=== PATIENT | female | born 1985 | race Caucasian/White ===

== ENCOUNTER 2019-05-30 20:02 | Emergency (ER) | payer OTHER ==
[2019-05-30] MEDS ORDERED: AZITHROMYCIN 250 MG TAB ONE (20:27)
[2019-05-30] MEDS ORDERED: DIPHENHYDRAMINE 25 MG TAB/CAP ONE (20:27)
[2019-05-30] MEDS ORDERED: LEVALBUTEROL 1.25 MG/3 ML NEB ONE (20:28)
[2019-05-30] MEDS ORDERED: predniSONE 20 MG TAB ONE (20:28)
[2019-05-30] MEDS ORDERED: IPRATROPIUM BROM 0.5MG/2.5ML ONE (20:28)
[2019-05-30] MEDS ORDERED: FAMOTIDINE 20 MG TAB ONE (20:29)
--- NOTE | 2019-05-30 20:55 | EDPHYS ---
Physician Documentation [facility] Name: Sarita Tracy Age: 34 yrs Sex: Female : 1985 Arrival Date: 05/30/2019 Time: 20:06 Bed 5 Private MD: Feliberto Encarnacion E ED Physician Abel May HPI: 05/30 20:17 This 34 yrs old Female presents to ER via Ambulatory with complaints of sabine Allergic Reaction, Chest Congestion. 20:17 The patient presents with chest pain, runny nose, shortness of breath. Onset: The sabine symptoms/episode began/occurred just prior to arrival. Associated signs and symptoms: Pertinent positives: shortness of breath. Possible causes: allergy shots. At home the patient or guardian has treated the symptoms with nothing. Severity of symptoms: At their worst the symptoms were mild in the emergency department the symptoms are unchanged. The patient has not experienced similar symptoms in the past. 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 - Social history:: Smoking status: Patient/guardian denies using tobacco. - Ebola Screening: : No symptoms or risks identified at this time. - Family history:: not pertinent. ROS: 20:17 Constitutional: Negative for fever, chills, and weight loss, Eyes: Negative for injury, sabine pain, redness, and discharge, ENT: Negative for injury, pain, and discharge, Neck: Negative for injury, pain, and swelling, Cardiovascular: Negative for chest pain, palpitations, and edema, Abdomen/GI: Negative for abdominal pain, nausea, vomiting, diarrhea, and constipation, Back: Negative for injury and pain, : Negative for injury, bleeding, discharge, and swelling, MS/Extremity: Negative for injury and deformity, Skin: Negative for injury, rash, and discoloration, Neuro: Negative for headache, weakness, numbness, tingling, and seizure, Psych: Negative for depression, anxiety, suicide ideation, homicidal ideation, and hallucinations, Allergy/Immunology: Negative for hives, rash, and allergies, Endocrine: Negative for neck swelling, polydipsia, polyuria, polyphagia, and marked weight changes, Hematologic/Lymphatic: Negative for swollen nodes, abnormal bleeding, and unusual bruising. 20:17 Respiratory: Positive for cough, shortness of breath. Exam: 20:17 Constitutional: This is a well developed, well nourished patient who is awake, alert, sabine and in no acute distress. Head/Face: Normocephalic, atraumatic. Eyes: Pupils equal round and reactive to light, extra-ocular motions intact. Lids and lashes normal. Conjunctiva and sclera are non-icteric and not injected. Cornea within normal limits. Periorbital areas with no swelling, redness, or edema. ENT: Nares patent. No nasal discharge, no septal abnormalities noted. Tympanic membranes are normal and external auditory canals are clear. Oropharynx with no redness, swelling, or masses, exudates, or evidence of obstruction, uvula midline. Mucous membranes moist. Neck: Trachea midline, no thyromegaly or masses palpated, and no cervical lymphadenopathy. Supple, full range of motion without nuchal rigidity, or vertebral point tenderness. No Meningismus. Chest/axilla: Normal chest wall appearance and motion. Nontender with no deformity. No lesions are appreciated. Cardiovascular: Regular rate and rhythm with a normal S1 and S2. No gallops, murmurs, or rubs. Normal PMI, no JVD. No pulse deficits. Respiratory: Lungs have equal breath sounds bilaterally, clear to auscultation and percussion. No rales, rhonchi or wheezes noted. No increased work of breathing, no retractions or nasal flaring. Abdomen/GI: Soft, non-tender, with normal bowel sounds. No distension or tympany. No guarding or rebound. No evidence of tenderness throughout. Back: No spinal tenderness. No costovertebral tenderness. Full range of motion. Skin: Warm, dry with normal turgor. Normal color with no rashes, no lesions, and no evidence of cellulitis. MS/ Extremity: Pulses equal, no cyanosis. Neurovascular intact. Full, normal range of motion. Neuro: Awake and alert, GCS 15, oriented to person, place, time, and situation. Cranial nerves II-XII grossly intact. Motor strength 5/5 in all extremities. Sensory grossly intact. Cerebellar exam normal. Normal gait. Psych: Awake, alert, with orientation to person, place and time. Behavior, mood, and affect are within normal limits. 20:17 Musculoskeletal/extremity: DVT Exam: No signs of deep vein thrombosis. no pain, no swelling, no tenderness, negative Homans' sign noted on exam, no appreciated bluish discoloration, no erythema, no increased warmth. Vital Signs: 20:19 BP 140 / 74; Pulse 80; Resp 20; Temp 98.1; Pulse Ox 97% on R/A; Weight 58.97 kg; Height ea 5 ft. (152.40 cm); 21:17 BP 139 / 78; Pulse 100; Resp 16; Pulse Ox 100% on R/A; jb4 20:19 Body Mass Index 25.39 (58.97 kg, 152.40 cm) ea MDM: 20:07 Patient medically screened. [facility] 05/30 21:14 Order name: Urine Dipstick--Ancillary (enter results) [facility] 05/30 21:14 Order name: Urine --Ancillary (enter results) [facility] 05/30 20:15 Order name: Chest Single View XRAY [facility] 05/30 20:15 Order name: Urine Dipstick-Ancillary (obtain specimen); Complete Time: 21:17 [facility] 05/30 20:15 Order name: Urine Test (obtain specimen); Complete Time: 21:17 [facility] Administered Medications: 20:15 CANCELLED (Duplicate Order): predniSONE 40 mg PO once [facility] 20:24 CANCELLED (Duplicate Order): Benadryl 25 mg IVP once [facility] 20:24 CANCELLED (Duplicate Order): Pepcid 20 mg IVP once [facility] 20:32 Drug: AtroVENT Aerosol 0.5 mg Route: Inhalation; jb4 21:17 Follow up: Response: No adverse reaction jb4 20:32 Drug: Zithromax 500 mg Route: PO; jb4 21:17 Follow up: Response: No adverse reaction jb4 20:32 Drug: predniSONE 60 mg Route: PO; jb4 21:16 Follow up: Response: No adverse reaction jb4 20:32 Drug: Pepcid 40 mg Route: PO; jb4 21:16 Follow up: Response: No adverse reaction jb4 20:32 Drug: Benadryl 50 mg Route: PO; jb4 21:16 Follow up: Response: No adverse reaction jb4 20:33 Drug: Xopenex 1.25 mg Route: Inhalation; jb4 21:17 Follow up: Response: No adverse reaction jb4 Disposition: 05/30/19 20:54 Discharged to Home. Impression: Allergy, unspecified, Bronchitis, not specified as acute or chronic. - Condition is Stable. - Discharge Instructions: Acute Bronchitis, Adult, Allergies, Adult, How to Use an Inhaler, Upper Respiratory Infection, Adult, Allergies, [id number]. - Prescriptions for Benadryl 25 mg Oral Capsule - take 1 capsule by ORAL route every 6 hours As needed; 30 tablet. Pepcid 20 mg Oral Tablet - take 1 tablet by ORAL route every 12 hours for 10 days; 20 tablet. Zithromax Z- Fortino 250 mg Oral Tablet - take 1 tablet by ORAL route as directed for 5 days Day 1 - take two (2) tablets one time. Day 2, 3, 4 , 5 take one (1) tablet once daily.; 6 tablet. Medrol (Fortino) 4 mg Oral Tablets, Dose Pack - take 1 tablet by ORAL route as directed - follow package instructions; 1 packet. Albuterol Sulfate 90 mcg/actuation - inhale 1-2 puff by INHALATION route every 4-6 hours; 1 Inhaler. EpiPen 0.3 mg Injection auto- injector - inject 1 pen by INTRAMUSCULAR route as directed Inject into the outer portion of the thigh, through clothing if necessary. Indicated in the emergency treatment of allergic reactions; 1 box. - Medication Reconciliation Form, Thank You Letter, Antibiotic Education, Prescription Opioid Use form. - Follow up: Feliberto Encarnacion; When: 1 - 2 days; Reason: Recheck today's complaints, Continuance of care, Re-evaluation by your physician. - Problem is new. - Symptoms have improved. Signatures: Dispatcher [employer] Abel Barone MD MD cha Bryson, James, RN RN jb4 Maryann Trujillo RN RN ben Corrections: (The following items were deleted from the chart) 20:15 20:15 predniSONE 40 mg PO once ordered. sabine sabine 20:24 20:17 Benadryl 25 mg IVP once ordered. sabine regalado 20:24 20:17 Pepcid 20 mg IVP once ordered. [facility] 21:19 20:54 05/30/2019 20:54 Discharged to Home. Impression: Allergy, unspecified; jb4 Bronchitis, not specified as acute or chronic. Condition is Stable. Discharge Instructions: Acute Bronchitis, Adult, Allergies, Adult, How to Use an Inhaler, Upper Respiratory Infection, Adult, Allergies, [id number]. Prescriptions for Benadryl 25 mg Oral Capsule - take 1 capsule by ORAL route every 6 hours As needed; 30 tablet, Pepcid 20 mg Oral Tablet - take 1 tablet by ORAL route every 12 hours for 10 days; 20 tablet, Zithromax Z-Fortino 250 mg Oral Tablet - take 1 tablet by ORAL route as directed for 5 days Day 1 - take two (2) tablets one time. Day 2, 3, 4 , 5 take one (1) tablet once daily.; 6 tablet, Medrol (Fortino) 4 mg Oral Tablets, Dose Pack - take 1 tablet by ORAL route as directed - follow package instructions; 1 packet, Albuterol Sulfate 90 mcg/actuation - inhale 1-2 puff by INHALATION route every 4-6 hours; 1 Inhaler, EpiPen 0.3 mg Injection auto-injector - inject 1 pen by INTRAMUSCULAR route as directed Inject into the outer portion of the thigh, through clothing if necessary. Indicated in the emergency treatment of allergic reactions; 1 box. and Forms are Medication Reconciliation Form, Thank You Letter, Antibiotic Education, Prescription Opioid Use. Follow up: Feliberto Encarnacion; When: 1 - 2 days; Reason: Recheck today's complaints, Continuance of care, Re-evaluation by your physician. Problem is new. Symptoms have improved. [facility]
--- NOTE | 2019-05-30 20:55 | ER ---
Nurse's Notes [facility] Name: Sarita Tracy Age: 34 yrs Sex: Female : 1985 Arrival Date: 05/30/2019 Time: 20:06 Bed 5 Private MD: Feliberto Encarnacion E Diagnosis: Allergy, unspecified;Bronchitis, not specified as acute or chronic Presentation: 05/30 20:14 Presenting complaint: Patient states: Reports she had allergy shots today, states " ea started feeling congestion and shortness of breath that started about two hours ago". Transition of care: patient was not received from another setting of care. Onset: The symptoms/episode began/occurred gradually. Anaphylaxis evaluation, no signs or symptoms of anaphylaxis were noted. Onset of symptoms was May 30, 2019. Risk Assessment: Do you want to hurt yourself or someone else? Patient reports no desire to harm self or others. Initial Sepsis Screen: Does the patient meet any 2 criteria? No. Patient's initial sepsis screen is negative. Does the patient have a suspected source of infection? No. Patient's initial sepsis screen is negative. Care prior to arrival: None. 20:14 Method Of Arrival: Ambulatory ea 20:14 Acuity: ROSA 3 ea Triage Assessment: 20:19 General: Appears in no apparent distress. Behavior is calm, cooperative, appropriate ea for age. Pain: Denies pain. Neuro: Level of Consciousness is awake, alert, obeys commands, Oriented to person, place, time, situation. Respiratory: Airway is patent Respiratory effort is even, unlabored, Respiratory pattern is regular, symmetrical. 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 - Social history:: Smoking status: Patient/guardian denies using tobacco. - Ebola Screening: : No symptoms or risks identified at this time. - Family history:: not pertinent. Screenin:16 Abuse screen: Denies threats or abuse. Nutritional screening: No deficits noted. ea Tuberculosis screening: No symptoms or risk factors identified. Fall Risk None identified. Assessment: 20:17 General: Appears in no apparent distress. uncomfortable, Behavior is calm, cooperative, jb4 appropriate for age. Pain: Complains of pain in chest Pain does not radiate. Pain currently is 5 out of 10 on a pain scale. Quality of pain is described as Its heavy and hurts to cough. Neuro: Level of Consciousness is awake, alert, obeys commands, Oriented to person, place, time, situation. Cardiovascular: Patient's skin is warm and dry. Respiratory: Reports shortness of breath cough that is pain with cough Airway is patent Respiratory effort is even, labored, Respiratory pattern is regular, symmetrical, Breath sounds are clear bilaterally. GI: No deficits noted. No signs and/or symptoms were reported involving the gastrointestinal system. : No deficits noted. No signs and/or symptoms were reported regarding the genitourinary system. EENT: No deficits noted. No signs and/or symptoms were reported regarding the EENT system. Derm: Skin is intact, Skin is pink, warm \\T\\ dry. Musculoskeletal: Circulation, motion, and sensation intact. Range of motion: intact in all extremities. 21:17 Reassessment: Patient appears in no apparent distress at this time. Patient and/or jb4 family updated on plan of care and expected duration. Pain level reassessed. Patient is alert, oriented x 3, equal unlabored respirations, skin warm/dry/pink. Pt verbalized understanding of d/c and follow up instructions. Left ED ambulatory with steady gait, with family. Patient states feeling better. Patient states symptoms have improved. Respiratory: Airway is patent Respiratory effort is even, unlabored, Respiratory pattern is regular, symmetrical, Breath sounds are clear bilaterally. Vital Signs: 20:19 BP 140 / 74; Pulse 80; Resp 20; Temp 98.1; Pulse Ox 97% on R/A; Weight 58.97 kg; Height ea 5 ft. (152.40 cm); 21:17 BP 139 / 78; Pulse 100; Resp 16; Pulse Ox 100% on R/A; jb4 20:19 Body Mass Index 25.39 (58.97 kg, 152.40 cm) ED Course: 20:06 Patient arrived in ED. es 20:07 Feliberto Encarnacion MD is Private Physician. 20:07 Abel May MD is Attending Physician. [facility] 20:09 Yariel Baez, RN is Primary Nurse. jb4 20:16 Triage completed. ea 20:16 Arm band placed on right wrist. Patient placed in an exam room, on a stretcher, on ea pulse oximetry. 20:16 Patient has correct armband on for positive identification. Bed in low position. Call ea light in reach. Side rails up X2. 20:54 Feliberto Encarnacion MD is Referral Physician. [facility] 21:00 Chest Single View XRAY In Process Unspecified. EDRI 21:17 No provider procedures requiring assistance completed. Patient did not have IV access jb4 during this emergency room visit. Administered Medications: 20:15 CANCELLED (Duplicate Order): predniSONE 40 mg PO once sabine 20:24 CANCELLED (Duplicate Order): Benadryl 25 mg IVP once sabine 20:24 CANCELLED (Duplicate Order): Pepcid 20 mg IVP once sabine 20:32 Drug: AtroVENT Aerosol 0.5 mg Route: Inhalation; jb4 21:17 Follow up: Response: No adverse reaction jb4 20:32 Drug: Zithromax 500 mg Route: PO; jb4 21:17 Follow up: Response: No adverse reaction jb4 20:32 Drug: predniSONE 60 mg Route: PO; jb4 21:16 Follow up: Response: No adverse reaction jb4 20:32 Drug: Pepcid 40 mg Route: PO; jb4 21:16 Follow up: Response: No adverse reaction jb4 20:32 Drug: Benadryl 50 mg Route: PO; jb4 21:16 Follow up: Response: No adverse reaction jb4 20:33 Drug: Xopenex 1.25 mg Route: Inhalation; jb4 21:17 Follow up: Response: No adverse reaction jb4 Outcome: 20:54 Discharge ordered by . sabine 21:17 Discharged to home ambulatory, with family. jb4 21:17 Condition: stable 21:17 Discharge instructions given to patient, family, Instructed on discharge instructions, follow up and referral plans. medication usage, Demonstrated understanding of instructions, follow-up care, medications, Prescriptions given X 6 21:19 Patient left the ED. jb4 Signatures: Dispatcher [employer] EDRI Abel May MD MD cha Salyer, Edna es Bryson, James, RN RN jb4 Maryann Trujillo, RN RN ea
[2019-05-30 21:19] LABS: Urine Blood NEGATIVE (NEG); Urine Glucose NEGATIVE (NEG); Urine Protein NEGATIVE (NEG); Urine Specific Gravity >1.030 (1.005-1.030)
--- NOTE | 2019-05-31 08:13 | RAD REPORT ---
EXAM DESCRIPTION: Mariano Single View05/30/2019 8:58 pm CLINICAL HISTORY: Cough COMPARISON: 2017 FINDINGS: The patient is in a poor degree of inspiration The lungs appear clear of acute infiltrate. The heart is normal size IMPRESSION: No acute abnormalities displayed
== END 2019-05-30 21:19 | disposition home or self-care (01) ==
LOC: ER 20:02
DX: T78.40XA Allergy, unspecified, initial encounter (principal); J40 Bronchitis, not specified as acute or chronic; R07.9 Chest pain, unspecified; I10 Essential (primary) hypertension; F32.9 Major depressive disorder, single episode, unspecified; F41.9 Anxiety disorder, unspecified; G80.9 Cerebral palsy, unspecified
CPT/HCPCS: 71045; 81003; 81025; 99284; J7512

== ENCOUNTER 2019-12-31 12:29 | Emergency (ER) | payer OTHER ==
--- NOTE | 2019-12-31 15:19 | RAD REPORT ---
EXAM DESCRIPTION: CT - [id number] - 12/31/2019 2:43 pm CLINICAL HISTORY: fall, head injury COMPARISON: No comparisons TECHNIQUE: Axial 5 mm thick images of the head were obtained. Axial 2 mm thick images of the cervic al spine were obtained with sagittal and coronal reconstruction images generated and reviewed. All CT scans are performed using dose optimization technique as appropriate and may include automated exposure control or mA/KV adjustment according to patient size. FINDINGS: No intracranial hemorrhage, mass, edema or acute intracranial finding. No cortical edema o r sulcal effacement. Ventricles are normal. No extra-axial fluid collections. Mastoid air cells and p aranasal sinuses are clear. No globe or orbit abnormality seen. Cervical body height and alignment are normal. C7-T1 disc space narrowing is present with large poste rior endplate spurring, unusual for age. Canal is borderline stenotic at this level. Patient has C6-7 uncovertebral joint hypertrophy causing mild bilateral bony foraminal encroachment. No fracture or a cute bony abnormality. Central canal detail is inherently limited. No paraspinal mass or hematoma. IMPRESSION: Negative CT head examination for acute or significant finding. No fracture or acute cervical spine finding. Patient has prominent for age posterior endplate spurrin g at C7-T1 causing borderline spinal stenosis along with bony foraminal encroachment at C6-7. Central canal detail is inherently limited.
[2019-12-31] MEDS ORDERED: ACETAMINOPHEN 325 MG TABLET ONE (15:41)
[2019-12-31] MEDS ORDERED: ONDANSETRON 4 MG (ODT) TAB ONE (15:42)
--- NOTE | 2019-12-31 16:02 | EDPHYS ---
Physician Documentation [facility] Name: Sarita Tracy Age: 34 yrs Sex: Female : 1985 Arrival Date: 12/31/2019 Time: 12:32 Bed 17 Private MD: Chencho Figueroa ED Physician Abel May HPI: 12/30 14:12 This 34 yrs old Female presents to ER via Ambulatory with complaints of Fall jmm Injury, Head pain. 14:12 Details of fall: The patient fell from an upright position. Onset: The symptoms/episode jmm began/occurred acutely, last night. Associated injuries: The patient sustained injury to the head. This is a 34 year old female with a history of Cerebral Palsy that presents to the ED with complaints of headache, nausea beginning after a fall which occurred last night. Patient states she slipped and fell last night due to underlying CP. Patient states she saw stars after the injury. Denies LOC. 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 - Social history:: Smoking status: Patient denies any tobacco usage or history of. ROS: 14:12 Constitutional: Negative for fever, chills, and weight loss, Cardiovascular: Negative jmm for chest pain, palpitations, and edema, Respiratory: Negative for shortness of breath, cough, wheezing, and pleuritic chest pain. 14:12 Abdomen/GI: Positive for nausea. 14:12 Neuro: Positive for headache. 14:12 All other systems are negative. Exam: 14:12 Constitutional: This is a well developed, well nourished patient who is awake, alert, jmm and in no acute distress. 14:12 Eyes: EOMI, no conjunctival erythema appreciated ENT: Moist Mucus Membranes Neck: Trachea midline, Supple Chest/axilla: Normal chest wall appearance and motion. Cardiovascular: Regular rate and rhythm. No edema appreciated Respiratory: Normal respirations, no respiratory distress appreciated Abdomen/GI: Non distended, soft Back: Normal ROM Skin: General appearance color normal MS/ Extremity: Moves all extremities, no obvious deformities appreciated, no edema noted to the lower extremities Neuro: Awake and alert, normal gait Psych: Behavior is normal, Mood is normal, Patient is cooperative and pleasant 14:12 Head/face: Noted is tenderness, that is moderate, of the left side of the back of head. Vital Signs: 13:17 BP 133 / 84; Pulse 79; Resp 18; Temp 97.6; Pulse Ox 100% on R/A; Weight 61.69 kg; dm5 Height 5 ft. 0 in. (152.40 cm); Pain 4/10; 14:00 BP 113 / 74; Pulse 62; Resp 17; Pulse Ox 100% on R/A; vc 14:30 BP 117 / 64; Pulse 68; Resp 18; Pulse Ox 100% on R/A; vc 15:01 BP 104 / 66; Pulse 59; Resp 17; Temp 97.5(TE); Pulse Ox 100% on R/A; mh5 13:17 Body Mass Index 26.56 (61.69 kg, 152.40 cm) dm5 MDM: 13:46 Patient medically screened. sabine 15:55 Data reviewed: vital signs, nurses notes. Counseling: I had a detailed discussion with tiana the patient and/or guardian regarding: the historical points, exam findings, and any diagnostic results supporting the discharge/admit diagnosis, radiology results, the need for outpatient follow up, to return to the emergency department if symptoms worsen or persist or if there are any questions or concerns that arise at home. ED course: CT imaging negative. Patient given head injury return precautions. . 12/30 14:12 Order name: CT Head C Spine; Complete Time: 15:[address] [facility] Administered Medications: 15:45 Drug: Tylenol 650 mg Route: PO; vc 16:24 Follow up: Response: No adverse reaction vc 15:45 Drug: Zofran (Ondansetron) 4 mg Route: PO; vc 16:23 Follow up: Response: No adverse reaction vc Disposition: 12/31/19 16:00 Discharged to Home. Impression: Superficial injury of head. - Condition is Stable. - Discharge Instructions: Head Injury, Adult. - Prescriptions for Ibuprofen 600 mg Oral Tablet - take 1 tablet by ORAL route every 8-12 hours As needed take with food; 30 tablet. Zofran 4 mg Oral Tablet - take 1 tablet by ORAL route every 12 hours As needed; 14 tablet. - Medication Reconciliation Form, Thank You Letter, Antibiotic Education, Prescription Opioid Use form. - Follow up: Private Physician; When: 2 - 3 days; Reason: Recheck today's complaints, Continuance of care, Re-evaluation by your physician. Addendum: 01/02/2020 09:07 Co-signature as Attending Physician, Abel May MD I agree with the assessment and c cheatham plan of care. Signatures: Dispatcher [employer] EDMS Abel May MD MD cha Mickail, Joel, PA PA jmm Calcote, Vanessa RN RN vc Corrections: (The following items were deleted from the chart) 12/30 16:25 16:00 12/31/2019 16:00 Discharged to Home. Impression: Superficial injury of head. vc Condition is Stable. Forms are Medication Reconciliation Form, Thank You Letter, Antibiotic Education, Prescription Opioid Use. Follow up: Private Physician; When: 2 - 3 days; Reason: Recheck today's complaints, Continuance of care, Re-evaluation by your physician. tiana
--- NOTE | 2019-12-31 16:02 | ER ---
Nurse's Notes [facility] Name: Sarita Tracy Age: 34 yrs Sex: Female : 1985 Arrival Date: 12/31/2019 Time: 12:32 Bed 17 Private MD: Chencho Figueroa Diagnosis: Superficial injury of head Presentation: 12/30 13:17 Chief complaint: Patient states: slipped in laundry room last night and hit back of dm5 head on wall, saw stars, has headache now rated at 4/10, pt reports nausea. Coronavirus screen: The patient has NOT traveled to a country currently being monitored by the [facility] within the last 14 days. Proceed with normal triage procedures. The patient has NOT had contact with any known and/or suspected case of coronavirus. Proceed with normal triage procedures. Ebola Screen: Patient negative for fever greater than or equal to 101.5 degrees Fahrenheit, and additional compatible Ebola Virus Disease symptoms Patient denies exposure to infectious person. Patient denies travel to an Ebola-affected area in the 21 days before illness onset. No symptoms or risks identified at this time. Initial Sepsis Screen: Does the patient meet any 2 criteria? No. Patient's initial sepsis screen is negative. Does the patient have a suspected source of infection? No. Patient's initial sepsis screen is negative. Risk Assessment: Do you want to hurt yourself or someone else? Patient reports no desire to harm self or others. 13:17 Method Of Arrival: Ambulatory 5 13:17 Acuity: ROSA 4 dm5 14:52 Onset of symptoms was December 30, 2019 at 21:00. vc Triage Assessment: 13:45 General: Appears in no apparent distress. comfortable, Behavior is calm, cooperative, vc appropriate for age. Pain: Complains of pain in left side of the back of head. 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 - Social history:: Smoking status: Patient denies any tobacco usage or history of. Screenin:23 Abuse screen: Denies threats or abuse. Nutritional screening: No deficits noted. vc Tuberculosis screening: No symptoms or risk factors identified. Fall Risk Fall in past 12 months (25 points). Secondary diagnosis (15 points) CP. No IV (0 pts). Ambulatory Aid- None/Bed Rest/Nurse Assist (0 pts). Gait- Weak (10 pts.). Mental Status- Oriented to own ability (0 pts). Total Coe Fall Scale indicates High Risk Score (45 or more points). Placed Close to Nursing Station Frequent Obs/Assessments Occuring. Primary Survey: 13:50 NO uncontrolled hemorrhage observed. A: The patient needs verbal stimulation to vc respond. Airway: patent. Breathing/Chest: Respiratory pattern: regular, Respiratory effort: spontaneous. Circulation: Pulses: palpable right radial artery and left radial artery. Skin color: pink, Skin temperature: warm. Disability Alert. Exposure/Environment: All clothing and personal items were removed. Forensic evidence collection is not deemed to be indicated at this time. Items placed in patient belonging bag. There is no evidence of uncontrolled external bleeding. Assessment: 14:00 General: Appears in no apparent distress. comfortable, Behavior is calm, cooperative, vc appropriate for age. Pain: Complains of pain in left side of the back of head. Neuro: Level of Consciousness is awake, alert, obeys commands, Oriented to person, place, time, situation. Cardiovascular: Capillary refill < 3 seconds Patient's skin is warm and dry. Respiratory: Airway is patent Respiratory effort is even, unlabored, Respiratory pattern is regular, symmetrical. GI: No signs and/or symptoms were reported involving the gastrointestinal system. : No signs and/or symptoms were reported regarding the genitourinary system. EENT: No signs and/or symptoms were reported regarding the EENT system. Derm: Skin temperature is warm. 14:59 Reassessment: Patient and/or family updated on plan of care and expected duration. Pain vc level reassessed. Patient is alert, oriented x 3, equal unlabored respirations, skin warm/dry/pink. Neuro: Level of Consciousness is awake, alert, obeys commands, Oriented to person, place, time, situation, Appropriate for age. 16:22 Reassessment: Patient and/or family updated on plan of care and expected duration. Pain vc level reassessed. Patient is alert, oriented x 3, equal unlabored respirations, skin warm/dry/pink. Neuro: Level of Consciousness is awake, alert, obeys commands. Vital Signs: 13:17 BP 133 / 84; Pulse 79; Resp 18; Temp 97.6; Pulse Ox 100% on R/A; Weight 61.69 kg; dm5 Height 5 ft. 0 in. (152.40 cm); Pain 4/10; 14:00 BP 113 / 74; Pulse 62; Resp 17; Pulse Ox 100% on R/A; vc 14:30 BP 117 / 64; Pulse 68; Resp 18; Pulse Ox 100% on R/A; vc 15:01 BP 104 / 66; Pulse 59; Resp 17; Temp 97.5(TE); Pulse Ox 100% on R/A; mh5 13:17 Body Mass Index 26.56 (61.69 kg, 152.40 cm) dm5 ED Course: 12:32 Patient arrived in ED. am2 12:32 Chencho Figueroa is Private Physician. am2 12:54 Will Diaz PA is PHCP. jmm 12:55 Abel May MD is Attending Physician. jmm 13:18 Triage completed. dm5 13:45 Arm band placed on. vc 14:00 Patient has correct armband on for positive identification. Call light in reach. vc pvc monitor on. Pulse ox on. 14:10 Abena Renteria, RN is Primary Nurse. vc 14:44 CT Head C Spine In Process Unspecified. EDMS 16:24 No provider procedures requiring assistance completed. Patient did not have IV access vc during this emergency room visit. Administered Medications: 15:45 Drug: Tylenol 650 mg Route: PO; vc 16:24 Follow up: Response: No adverse reaction vc 15:45 Drug: Zofran (Ondansetron) 4 mg Route: PO; vc 16:23 Follow up: Response: No adverse reaction vc Outcome: 16:00 Discharge ordered by . jmm 16:25 Discharged to home ambulatory. vc 16:25 Condition: good 16:25 Discharge instructions given to patient, Instructed on discharge instructions, follow up and referral plans. medication usage, Demonstrated understanding of instructions, follow-up care, medications, Prescriptions given X 2. 16:25 Patient left the ED. vc Signatures: Dispatcher [employer] Amie Hitcchock RN RN dm5 Will Diaz PA PA jmm Martinez, [facility] Sunitha Porter Vanessa, RN RN vc Corrections: (The following items were deleted from the chart) 14:59 13:30 BP 113 / 74; Pulse 62bpm; Resp 17bpm; Pulse Ox 100% RA; vc vc
[2019-12-31 16:43] VITALS: O2SAT 100
[2019-12-31 16:48] VITALS: BP 104/66; TEMP 97.5
== END 2019-12-31 16:25 | disposition home or self-care (01) ==
LOC: ER 12:29
DX: S00.90XA Unspecified superficial injury of unspecified part of head, initial encounter (principal); W01.198A Fall on same level from slipping, tripping and stumbling with subsequent striking against other object, initial encounter; Y93.89 Activity, other specified; Y92.018 Other place in single-family (private) house as the place of occurrence of the external cause; I10 Essential (primary) hypertension; F41.9 Anxiety disorder, unspecified
CPT/HCPCS: 70450; 72125; 99284

== ENCOUNTER 2020-07-27 15:39 | Emergency (ER) | payer OTHER ==
[2020-07-27] MEDS ORDERED: predniSONE 20 MG TAB ONE (17:10)
[2020-07-27] MEDS ORDERED: ALBUTEROL 2.5 MG/3 ML NEB SOL ONE (17:10)
[2020-07-27] MEDS ORDERED: FAMOTIDINE 20 MG TAB ONE (17:11)
--- NOTE | 2020-07-27 17:27 | RAD REPORT ---
EXAM DESCRIPTION: RAD - Chest Single View - 07/27/2020 5:18 pm CLINICAL HISTORY: DYSPNEA COMPARISON: May 2019 TECHNIQUE: AP portable chest image was obtained 07/27/2020 5:18 pm . FINDINGS: Lungs are clear. Heart and vasculature are normal. No measurable pleural effusion and no p neumothorax. No acute bony abnormality seen. No acute aortic findings suspected. IMPRESSION: No acute cardiopulmonary process. No significant change from comparison.
--- NOTE | 2020-07-27 17:35 | EDPHYS ---
Physician Documentation [facility] Name: Sarita Tracy Age: 35 yrs Sex: Female : 1985 Arrival Date: 07/27/2020 Time: 15:42 Bed 4 Private MD: RAFA Physician Abel May HPI: 07/27 17:54 This 35 yrs old Female presents to ER via Ambulatory with complaints of kb Allergic Reaction, Shortness Of Breath. 17:54 The patient presents with runny nose, shortness of breath. Onset: The symptoms/episode kb began/occurred today. Associated signs and symptoms: Pertinent positives: shortness of breath, cough, congestion, rhinorrhea. Possible causes: "allergy shots". Severity of symptoms: At their worst the symptoms were moderate in the emergency department the symptoms are unchanged. The patient has experienced similar episodes in the past. The patient has been recently seen by a physician:. Pt reports she gets 2 allergy shots monthly and after she got them today she had some shortness of breath, cough, congestion, and rhinorrhea. States "July is a bad month for me and this would be a lot worse without the shots.". 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 - Social history:: Smoking status: Patient denies any tobacco usage or history of. ROS: 17:44 Constitutional: Negative for fever, chills, and weight loss, Cardiovascular: Negative kb for chest pain, palpitations, and edema, Abdomen/GI: Negative for abdominal pain, nausea, vomiting, diarrhea, and constipation, Back: Negative for injury and pain, MS/Extremity: Negative for injury and deformity, Skin: Negative for injury, rash, and discoloration, Neuro: Negative for headache, weakness, numbness, tingling, and seizure. 17:44 ENT: Positive for rhinorrhea, sinus congestion, sore throat. 17:44 Respiratory: Positive for cough, shortness of breath. Exam: 17:44 Constitutional: This is a well developed, well nourished patient who is awake, alert, kb and in no acute distress. Head/Face: Normocephalic, atraumatic. Chest/axilla: Normal chest wall appearance and motion. Nontender with no deformity. No lesions are appreciated. Cardiovascular: Regular rate and rhythm with a normal S1 and S2. No gallops, murmurs, or rubs. Normal PMI, no JVD. No pulse deficits. Respiratory: Lungs have equal breath sounds bilaterally, clear to auscultation and percussion. No rales, rhonchi or wheezes noted. No increased work of breathing, no retractions or nasal flaring. Abdomen/GI: Soft, non-tender, with normal bowel sounds. No distension or tympany. No guarding or rebound. No evidence of tenderness throughout. Back: No spinal tenderness. No costovertebral tenderness. Full range of motion. Skin: Warm, dry with normal turgor. Normal color with no rashes, no lesions, and no evidence of cellulitis. MS/ Extremity: Pulses equal, no cyanosis. Neurovascular intact. Full, normal range of motion. Neuro: Awake and alert, GCS 15, oriented to person, place, time, and situation. Cranial nerves II-XII grossly intact. Motor strength 5/5 in all extremities. Sensory grossly intact. Cerebellar exam normal. Normal gait. 17:44 ENT: Nose: nasal drainage, that is minimal, that is moderate, and is seen coming from both nares, that is clear. Vital Signs: 15:55 BP 120 / 61; Pulse 81; Resp 18; Temp 98.3; Pulse Ox 100% ; Weight 58.97 kg; Height 5 ll1 ft. (152.40 cm); Pain 5/10; 17:31 BP 124 / 91; Pulse 80; Resp 17; Pulse Ox 100% on R/A; tw2 18:08 BP 109 / 80; Pulse 94; Resp 18; Pulse Ox 97% on R/A; em 15:55 Body Mass Index 25.39 (58.97 kg, 152.40 cm) ll1 MDM: 16:41 Patient medically screened. kb 17:32 Data reviewed: vital signs, nurses notes. Data interpreted: Pulse oximetry: on room air kb is 100 %. Interpretation: normal. Counseling: I had a detailed discussion with the patient and/or guardian regarding: the historical points, exam findings, and any diagnostic results supporting the discharge/admit diagnosis, radiology results, the need for outpatient follow up, a family practitioner, to return to the emergency department if symptoms worsen or persist or if there are any questions or concerns that arise at home. 07/27 16:47 Order name: Chest Single View XRAY; Complete Time: 17:32 kb Administered Medications: 17:01 Drug: Pepcid 20 mg Route: PO; tw2 17:49 Follow up: Response: No adverse reaction 17:01 Drug: predniSONE 60 mg Route: PO; tw2 17:49 Follow up: Response: No adverse reaction 17:01 Drug: Albuterol 2.5 mg Route: Inhalation; tw2 Disposition: 07/28 17:57 Co-signature as Attending Physician, Abel May MD I agree with the assessment and sabine plan of care. Disposition: 07/27/20 17:34 Discharged to Home. Impression: Allergic rhinitis, unspecified - reaction to allergy shots. - Condition is Stable. - Discharge Instructions: Allergic Rhinitis, Nasal Allergies, Dvet-ms-Svyu. - Prescriptions for Pepcid 20 mg Oral Tablet - take 1 tablet by ORAL route every 12 hours for 5 days; 10 tablet. Prednisone 20 mg Oral Tablet - take 1 tablet by ORAL route once daily for 5 days; 5 tablet. Albuterol Sulfate 90 mcg/actuation - inhale 1-2 puff by INHALATION route every 4-6 hours; 1 Inhaler. - Medication Reconciliation Form, Thank You Letter, Antibiotic Education, Prescription Opioid Use form. - Follow up: Emergency Department; When: As needed; Reason: Worsening of condition. Follow up: Private Physician; When: 2 - 3 days; Reason: Recheck today's complaints, Continuance of care, Re-evaluation by your physician. Signatures: Dispatcher [employer] Digna Jerome, LEARNING OFFICER-C LEARNING OFFICER-Abel Brunson MD MD cha Munoz, Edgar RN Laura Hannon RN RN tw2 Cam Anton RN RN ll1 Corrections: (The following items were deleted from the chart) 07/27 18:09 17:34 07/27/2020 17:34 Discharged to Home. Impression: Allergic rhinitis, unspecified - em reaction to allergy shots. Condition is Stable. Forms are Medication Reconciliation Form, Thank You Letter, Antibiotic Education, Prescription Opioid Use. Follow up: Emergency Department; When: As needed; Reason: Worsening of condition. Follow up: Private Physician; When: 2 - 3 days; Reason: Recheck today's complaints, Continuance of care, Re-evaluation by your physician. kb
--- NOTE | 2020-07-27 17:35 | ER ---
Nurse's Notes [facility] Name: Sarita Tracy Age: 35 yrs Sex: Female : 1985 Arrival Date: 07/27/2020 Time: 15:42 Bed 4 Private MD: Diagnosis: Allergic rhinitis, unspecified-reaction to allergy shots Presentation: 07/27 15:55 Chief complaint: Patient states: Had allergy shot today at 11. At around 1400 started ll1 to have throat and chest tightening, runny nose, watery eyes. Coronavirus screen: Client denies travel out of the [place] in the last 14 days. congestion, runny nose, Client presents with at least one sign or symptom that may indicate coronavirus-19. Standard/surgical mask placed on the client. Ebola Screen: Patient denies travel to an Ebola-affected area in the 21 days before illness onset. Onset: The symptoms/episode began/occurred today. Anaphylaxis evaluation, the patient reports or I have noted the following symptoms which indicate a significant risk of anaphylaxis:. Initial Sepsis Screen: Does the patient meet any 2 criteria? No. Patient's initial sepsis screen is negative. Does the patient have a suspected source of infection? Yes: Other: congestion. Risk Assessment: Do you want to hurt yourself or someone else? Patient reports no desire to harm self or others. Onset of symptoms was July 27, 2020. 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 - Social history:: Smoking status: Patient denies any tobacco usage or history of. Screenin:02 Abuse screen: Denies threats or abuse. Nutritional screening: No deficits noted. tw2 Tuberculosis screening: No symptoms or risk factors identified. Fall Risk None identified. Assessment: 16:45 General: Appears in no apparent distress. Behavior is calm, cooperative, appropriate tw2 for age. Pain: Denies pain. Neuro: Level of Consciousness is awake, alert, obeys commands, Oriented to person, place, time, situation. Cardiovascular: Heart tones S1 S2 Patient's skin is warm and dry. Respiratory: Reports shortness of breath Airway is patent Respiratory effort is even, unlabored, Respiratory pattern is regular, symmetrical, Breath sounds are clear bilaterally. GI: No signs and/or symptoms were reported involving the gastrointestinal system. : No signs and/or symptoms were reported regarding the genitourinary system. EENT: Reports nasal congestion nasal discharge and increased swelling and redness around eyes. Derm: No signs and/or symptoms reported regarding the dermatologic system. Musculoskeletal: Range of motion: intact in all extremities. 17:31 Reassessment: Patient appears in no apparent distress at this time. No changes from tw2 previously documented assessment. Patient and/or family updated on plan of care and expected duration. Pain level reassessed. Patient is alert, oriented x 3, equal unlabored respirations, skin warm/dry/pink. 18:08 Reassessment: Patient appears in no apparent distress at this time. Patient and/or em family updated on plan of care and expected duration. Pain level reassessed. Patient is alert, oriented x 3, equal unlabored respirations, skin warm/dry/pink. Vital Signs: 15:55 BP 120 / 61; Pulse 81; Resp 18; Temp 98.3; Pulse Ox 100% ; Weight 58.97 kg; Height 5 ll1 ft. (152.40 cm); Pain 5/10; 17:31 BP 124 / 91; Pulse 80; Resp 17; Pulse Ox 100% on R/A; tw2 18:08 BP 109 / 80; Pulse 94; Resp 18; Pulse Ox 97% on R/A; em 15:55 Body Mass Index 25.39 (58.97 kg, 152.40 cm) ll1 ED Course: 15:42 Patient arrived in ED. ds1 15:45 [facility] Johnson [facility] kb 15:45 Abel May MD is Attending Physician. kb 15:57 Triage completed. ll1 15:58 Arm band placed on Patient placed in an exam room, on a stretcher. ll1 16:42 Bed in low position. Call light in reach. Pulse ox on. NIBP on. tw2 16:55 Laura Lindsey RN is Primary Nurse. tw2 17:18 Chest Single View XRAY In Process Unspecified. EDMS 18:08 No provider procedures requiring assistance completed. Patient did not have IV access em during this emergency room visit. Administered Medications: 17: Drug: Pepcid 20 mg Route: PO; tw2 17:49 Follow up: Response: No adverse reaction tw2 17: Drug: predniSONE 60 mg Route: PO; tw2 17:49 Follow up: Response: No adverse reaction tw2 17: Drug: Albuterol 2.5 mg Route: Inhalation; tw2 Outcome: 17:34 Discharge ordered by MD. krause 18:08 Discharged to home ambulatory. em 18:08 Condition: stable 18:08 Discharge instructions given to patient, Instructed on discharge instructions, follow up and referral plans. medication usage, Demonstrated understanding of instructions, follow-up care, medications, Prescriptions given X 3. 18:09 Patient left the ED. em Signatures: Dispatcher [employer] ED[facility] Digna Johnson, PATT-C KITCHEN CLERK-Destin Momin RN RN Tasia Ray ds1 Laura Lindsey RN RN tw2 Cam Anton RN RN ll1
[2020-07-27 18:29] VITALS: TEMP 98.3
[2020-07-27 18:31] VITALS: BP 109/80; O2SAT 97
== END 2020-07-27 18:09 | disposition home or self-care (01) ==
LOC: ER 15:39
DX: R06.02 Shortness of breath (principal); J30.9 Allergic rhinitis, unspecified; I10 Essential (primary) hypertension
CPT/HCPCS: 71045; 99284; J7512

== ENCOUNTER 2023-05-30 13:00 | Emergency (ER) | payer OTHER ==
--- OUTSIDE RECORDS SUMMARY | 2023-05-30 13:05 | XMS REPORT | Continuity of Care Document ---
:1985 Author Organization [facility] t Address [address] [place] [address] [place] [id number] Care Team Providers Name Role Phone MARIA DEL ROSARIO FOLEY Primary Care Physician Unavailable MARIA DEL ROSARIO FOLEY Attending Clinician Unavailable Lab, Ang - Db Attending Clinician Unavailable Maria Del Rosario Foley MD Attending Clinician [phone] [facility] Attending Clinician Unavailable [facility] Attending Clinician Unknown, Attending Attending Clinician Unavailable UNKNOWN, ATTENDING Attending Clinician Unavailable CHIARA RICHARDS Attending Clinician Unavailable Chiara Richards NP Attending Clinician Sunitha Thomson MD Attending Clinician Shanon Bella Attending Clinician SHANON BECK Attending Clinician Unavailable Doctor Unassigned, [place] Attending Clinician Unavailable Provider, [facility] Attending Clinician Unavailable White_M Attending Clinician Unavailable CHIARA RICHARDS Admitting Clinician Unavailable White_M Admitting Clinician Unavailable Payers Payer Name Policy Type Policy Number Effective Date Expiration Date S ping [facility] DUAL [id number] 2022 COMP HMO D SNP 00:00:00 MEDICAID [facility] [id number] 2022 00:00:00 [employer] - [id number] 2020 [facility] 00:00:00 (MEDICARE REPLACEMENT/ADVANTA GE - HMO) [facility] - [id number] DUAL COMPLETE - DUAL ELIGIBLE - SNP (MEDICARE-MEDICAID REPLACEMENT HMO) Problems Condition Condition Condition Status Onset Resolution Last Treating Co mments Source Name Details Category Date Date Treatment Clinician Date 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 00:00: [address] Anxiety Anxiety Disease Active Univers 4-11 ity of 00:00: [address] HTN HTN Disease Active Univers (hypertens (hypertens 11 it y of ion) ion) 00:00: [address] No known No known Disease Unive rs active active ity of problems problems [facility] Allergies, Adverse Reactions, Alerts Allergy Allergy Status Severity Reaction(s) Onset Inactive Treating Comm ents Source Name Type Date Date Clinician BENADRYL DRUG Active Unknown-Cmnt 2021-10 Un eri ALLERGY 0-04 ity of DECONGES 00:00: [place] TANT 00 [facility] Benadryl Propensi Active Unknown - 2021-10 Restlessn Univers Allergy ty to See comments 0-04 ess ity of Deconges adverse 00:00: [place] tant reaction 00 [facility] [place] NO KNOWN Drug Active Univers ALLERGIE Class ity of S [facility] Social History Social Habit Start Date Stop Date Quantity Comments Source History of tobacco Cigarette Smoker University of use [facility] Exposure to 2023-01-17 2023-01-27 Not sure [facility] SARS-CoV-2 (event) 00:00:00 13:47:00 [facility] Cigarettes smoked 2023-01-27 2023-01-27 Univers ity of current (pack per 00:00:00 00:00:00 [facility] [place] [facility] ) - Reported Branch Cigarette 2023-01-27 2023-01-27 University of pack-years 00:00:00 00:00:00 [facility] Alcohol intake 2023-01-27 2023-01-27 Ex-drinker University of 00:00:00 00:00:00 (finding) [facility] Tobacco use and 2023-01-27 2023-01-27 Smokeless Universit y of exposure 00:00:00 00:00:00 tobacco [facility]user [facility] Assigned At [birth year] Universit y of 00:00:00 00:00:00 [facility] Smoking Status Start Date Stop Date Source Tobacco smoking [facility] consumption unknown Medical Bran ch Ex-smoker 2023-01-27 00:00:00 2023-01-27 [facility] o [facility] [place] 00:00:00 [facility] Never smoked tobacco [facility] [place] [facility] Medications Ordered Filled Start Stop Current Ordering Indication Dosage Frequency Signature Comments Components Source Medication Medication Date Date Medication? Clinician (SIG) Name Name isiah Yes 1{capsu Take 1 U nivers acetaminoph 4-11 le} capsule by it y of en-caffeine 14:03: mouth [place] 50-325-40-3 08 every 6 Medic al 0 mg per (six) Branch capsule hours as needed for Headache. zolpidem 5 2022-0 Yes 5mg Take 1 Unive rs mg tablet 4-11 tablet by ity o f 14:03: mouth at [place] 08 bedtime as Medical needed for Branch Insomnia. butalbital- Yes 1{capsu Take 1 U nivers acetaminoph 4-11 le} capsule by it y of en-caffeine 14:03: mouth [place] 50-325-40-3 08 every 6 Medic al 0 mg per (six) Branch capsule hours as needed for Headache. zolpidem 5 2022-0 Yes 5mg Take 1 Unive rs mg tablet 4-11 tablet by ity o f 14:03: mouth at [place] 08 bedtime as Medical needed for Branch Insomnia. butalbital- Yes 1{capsu Take 1 U nivers acetaminoph 4-11 le} capsule by it y of en-caffeine 14:03: mouth [place] 50-325-40-3 08 every 6 Medic al 0 mg per (six) Branch capsule hours as needed for Headache. zolpidem 5 2022-0 Yes 5mg Take 1 Unive rs mg tablet 4-11 tablet by ity o f 14:03: mouth at [place] 08 bedtime as Medical needed for Branch Insomnia. butalbital- 2022-0 Yes 1{capsu Take 1 U nivers acetaminoph 4-11 le} capsule by it y of en-caffeine 14:03: mouth [place] 50-325-40-3 08 every 6 Medic al 0 mg per (six) Branch capsule hours as needed for Headache. zolpidem 2022-0 Yes 5mg Take 1 Unive rs mg tablet 4-11 tablet by ity o f 14:03: mouth at [place] 08 bedtime as Medical needed for Branch Insomnia. baclofen 5 2022-0 Yes [id number] 5mg Take 1 Univers mg tablet 4-11 tablet by ity o f 00:00: mouth 3 [place] 00 (three) Medical times Branch daily as needed for Other or Pain (scale 7-10) (back back, muscle spasm, or leg pain). SERTraline 2022-0 Yes [id number] 12.5mg Take 0.5 Univers 25 mg 4-11 tablets by ity of tablet 00:00: mouth in [place] 00 the Medical morning. Branch lisinopriL 2022-0 Yes [id number] 10mg Take 1 U nivers 10 mg 4-11 tablet by ity of tablet 00:00: mouth in [place] 00 the Medical morning. Branch baclofen 5 2022-0 Yes [id number] 5mg Take 1 Univers mg tablet 4-11 tablet by ity o f 00:00: mouth 3 [place] 00 (three) Medical times Branch daily as needed for Other or Pain (scale 7-10) (back back, muscle spasm, or leg pain). SERTraline 2022-0 Yes [id number] 12.5mg Take 0.5 Univers 25 mg 4-11 tablets by ity of tablet 00:00: mouth in [place] 00 the Medical morning. Branch lisinopriL 2022-0 Yes [id number] 10mg Take 1 U nivers 10 mg 4-11 tablet by ity of tablet 00:00: mouth in [place] 00 the Medical morning. Branch baclofen 5 2022-0 Yes [id number] 5mg Take 1 Univers mg tablet 4-11 tablet by ity o f 00:00: mouth 3 [place] 00 (three) Medical times Branch daily as needed for Other or Pain (scale 7-10) (back back, muscle spasm, or leg pain). SERTraline 2022-0 Yes [id number] 12.5mg Take 0.5 Univers 25 mg 4-11 tablets by ity of tablet 00:00: mouth in [place] 00 the Medical morning. Branch lisinopriL 2022-0 Yes [id number] 10mg Take 1 U nivers 10 mg 4-11 tablet by ity of tablet 00:00: mouth in [place] 00 the Medical morning. Branch baclofen 5 2022-0 Yes [id number] 5mg Take 1 Univers mg tablet 4-11 tablet by ity o f 00:00: mouth 3 [place] 00 (three) Medical times Branch daily as needed for Other or Pain (scale 7-10) (back back, muscle spasm, or leg pain). SERTraline 0 Yes [id number] 12.5mg Take 0.5 Univers 25 mg 4-11 tablets by ity of tablet 00:00: mouth in [place] 00 the Medical morning. Branch lisinopriL Yes [id number] 10mg Take 1 U nivers 10 mg 4-11 tablet by ity of tablet 00:00: mouth in [place] 00 the Medical morning. Branch acetaminoph 2022- No TAKE 1 Uni vers en-codeine 2-10 04-11 TABLET BY ity of 300-30 mg 00:00: 00:00 MOUTH [place] tablet 00 :00 TWICE Medical DAILY Branch NEEDED acetaminoph 2022- No TAKE 1 Uni vers en-codeine 2-10 04-11 TABLET BY ity of 300-30 mg 00:00: 00:00 MOUTH [place] tablet 00 :00 TWICE Medical DAILY Branch NEEDED albuterol 2021-10- No [id number] 2{puff} Inhale 2 Univers 90 2-26 -06 Puffs ity of mcg/actuati 00:00: 05:59 every 6 [place] on inhaler 00 :00 (six) Medical hours as Branch needed for Wheezing or Shortness of Breath for up to 10 days. benzonatate 2021-10- No [id number] 200mg Take 1 Univers 200 mg 2-26 - capsule by ity of capsule 00:00: 05:59 mouth 3 [place] 00 :00 (three) Medical times Branch daily as needed for Cough for up to 10 days. albuterol 2021-10- No [id number] 2{puff} Inhale 2 Univers 90 2-26 01-06 Puffs ity of mcg/actuati 00:00: 05:59 every 6 [place] on inhaler 00 :00 (six) Medical hours as Branch needed for Wheezing or Shortness of Breath for up to 10 days. benzonatate 2021-10- No [id number] 200mg Take 1 Univers 200 mg 12-14 capsule by ity of capsule 00:00: 05:59 mouth 3 [place] 00 :00 (three) Medical times Branch daily as needed for Cough for up to 10 days. iopamidol 2021-10- No [id number] 79mL 79 mL, Univers (ISOVUE 11-27 Intravenou ity o f 370-500 mL) 21:00: 20:02 s, ONCE, 1 [place] injection 00 :00 dose, On Medica l 79 mL Fri Branch 09/26/22 at 1500, Routine ketorolac 2021-10 No 30mg 30 mg, Unive rs (TORADOL) 11-27 Slow IV ity of injection 19:45: 19:20 Push, [place] 30 mg 00 :00 ONCE, 1 Medical dose, On Branch 09/26/22 at 1345, Routine ondansetron 2021-10- No 4mg 4 mg, Slow Univers (ZOFRAN 11-27 IV Push, ity of (PF)) 19:00: 19:20 ONCE, 1 [place] injection 4 00 :00 dose, On Medi emily mg Fri Branch 09/26/22 at 1300, [place] ondansetron 2021-10 Yes [id number] 4mg Take 1 Univers 4 mg 2-09 tablet by ity of disintegrat 00:00: mouth [place] ing tablet 00 every 8 Medica l (eight) Branch hours as needed for Nausea and Vomiting (N/V). ibuprofen 2021-10 Yes [id number] 600mg Take 1 Univers 600 mg 2-09 tablet by ity of tablet 00:00: mouth [place] 00 every 6 Medical (six) Branch hours as needed for Pain (scale 4-6) or Pain (scale 1-3). ondansetron 2021-10 Yes [id number] 4mg Take 1 Univers 4 mg 2-09 tablet by ity of disintegrat 00:00: mouth [place] ing tablet 00 every 8 Medica l (eight) Branch hours as needed for Nausea and Vomiting (N/V). ibuprofen 2021-10 Yes [id number] 600mg Take 1 Univers 600 mg 2-09 tablet by ity of tablet 00:00: mouth [place] 00 every 6 Medical (six) Branch hours as needed for Pain (scale 4-6) or Pain (scale 1-3). ondansetron 2021-10 Yes [id number] 4mg Take 1 Univers 4 mg 2-09 tablet by ity of disintegrat 00:00: mouth [place] ing tablet 00 every 8 Medica l (eight) Branch hours as needed for Nausea and Vomiting (N/V). ibuprofen 2021-10 Yes [id number] 600mg Take 1 Univers 600 mg 2-09 tablet by ity of tablet 00:00: mouth [place] 00 every 6 Medical (six) Branch hours as needed for Pain (scale 4-6) or Pain (scale 1-3). ondansetron 2021-10 Yes [id number] 4mg Take 1 Univers 4 mg 2-09 tablet by ity of disintegrat 00:00: mouth [place] ing tablet 00 every 8 Medica l (eight) Branch hours as needed for Nausea and Vomiting (N/V). ibuprofen 2021-10 Yes [id number] 600mg Take 1 Univers 600 mg 2-09 tablet by ity of tablet 00:00: mouth [place] 00 every 6 Medical (six) Branch hours as needed for Pain (scale 4-6) or Pain (scale 1-3). ondansetron 2021-10 Yes [id number] 4mg Take 1 Univers 4 mg 2-09 tablet by ity of disintegrat 00:00: mouth [place] ing tablet 00 every 8 Medica l (eight) Branch hours as needed for Nausea and Vomiting (N/V). ibuprofen 2021-10 Yes [id number] 600mg Take 1 Univers 600 mg 2-09 tablet by ity of tablet 00:00: mouth [place] 00 every 6 Medical (six) Branch hours as needed for Pain (scale 4-6) or Pain (scale 1-3). ondansetron 2021-10 Yes [id number] 4mg Take 1 Univers 4 mg 2-09 tablet by ity of disintegrat 00:00: mouth [place] ing tablet 00 every 8 Medica l (eight) Branch hours as needed for Nausea and Vomiting (N/V). ibuprofen 2021-10 Yes [id number] 600mg Take 1 Univers 600 mg 2-09 tablet by ity of tablet 00:00: mouth [place] 00 every 6 Medical (six) Branch hours as needed for Pain (scale 4-6) or Pain (scale 1-3). ondansetron 2021-10 Yes [id number] 4mg Take 1 Univers 4 mg 2-09 tablet by ity of disintegrat 00:00: mouth [place] ing tablet 00 every 8 Medica l (eight) Branch hours as needed for Nausea and Vomiting (N/V). ibuprofen 2021-10 Yes [id number] 600mg Take 1 Univers 600 mg 2-09 tablet by ity of tablet 00:00: mouth [place] 00 every 6 Medical (six) Branch hours as needed for Pain (scale 4-6) or Pain (scale 1-3). cefdinir 2021-10- No [id number] 300mg Take 1 U nivers 300 mg - 12-17 capsule by ity of capsule 00:00: 05:59 mouth [place] 00 :00 every 12 Medical (twelve) Branch hours for 7 days. methylpredn 2021-10- No [id number] 125mg Univers isolone sod 0-05 10-04 ity of succ 00:15: 23:19 [place] (SOLU-MEDRO 00 :16 Medical L) Branch injection 125 mg methylpredn 2021-10- No [id number] 125mg Univers isolone sod 0-05 10-04 ity of succ 00:15: 23:22 [place] (SOLU-MEDRO 00 :00 Medical L) Branch injection 125 mg methylpredn 2021-10- No [id number] 125mg 125 mg, Univers isolone sod 0-05 10-04 Intramuscu i ty of succ 00:15: 23:22 lar, ONCE, [place] (SOLU-MEDRO 00 :00 1 dose, On Me dical L) Tue Branch injection 07/22/22 at 125 mg 1915, Routine fluticasone 2021-10 Yes [id number] 1{spray Use 1 Univers propionate 0-04 } [place] in ity o f 50 00:00: each [place] mcg/actuati 00 nostril in Me dical on nasal the Branch spray morning. azelastine 2021-10 Yes [id number] 1{spray Use 1 Univers 137 mcg 0-04 } [place] in ity of (0.1 %) 00:00: each [place] nasal spray 00 nostril in Me dical the Branch morning and 1 [place] in the evening. Use in each nostril as directed cetirizine 2021-10 Yes [id number] 10mg Take 1 Univers (ZYRTEC) 10 0-04 tablet by ity of mg tablet 00:00: mouth [place] 00 the Medical morning. Branch fluticasone 2021-10 Yes [id number] 1{spray Use 1 Univers propionate 0-04 } [place] in ity o f 50 00:00: each [place] mcg/actuati 00 nostril in Me dical on nasal the Branch spray morning. azelastine 2021-10 Yes [id number] 1{spray Use 1 Univers 137 mcg 0-04 } [place] in ity of (0.1 %) 00:00: each [place] nasal spray 00 nostril in Me dical the Branch morning and 1 [place] in the evening. Use in each nostril as directed cetirizine 2021-10 Yes [id number] 10mg Take 1 Univers (ZYRTEC) 10 0-04 tablet by ity of mg tablet 00:00: mouth [place] 00 the Medical morning. Branch fluticasone 2021-10 Yes [id number] 1{spray Use 1 Univers propionate 0-04 } [place] in ity o f 50 00:00: each [place] mcg/actuati 00 nostril in Me dical on nasal the Branch spray morning. azelastine 2021-10 Yes [id number] 1{spray Use 1 Univers 137 mcg 0-04 } [place] in ity of (0.1 %) 00:00: each [place] nasal spray 00 nostril in Me dical the Branch morning and 1 [place] in the evening. Use in each nostril as directed cetirizine 2021-10 Yes [id number] 10mg Take 1 Univers (ZYRTEC) 10 0-04 tablet by ity of mg tablet 00:00: mouth [place] 00 the Medical morning. Branch fluticasone 2021-10 Yes [id number] 1{spray Use 1 Univers propionate 0-04 } [place] in ity o f 50 00:00: each [place] mcg/actuati 00 nostril in Me dical on nasal the Branch spray morning. azelastine 2021-10 Yes [id number] 1{spray Use 1 Univers 137 mcg 0-04 } [place] in ity of (0.1 %) 00:00: each [place] nasal spray 00 nostril in Me dical the Branch morning and 1 [place] in the evening. Use in each nostril as directed cetirizine 2021-10 Yes [id number] 10mg Take 1 Univers (ZYRTEC) 10 0-04 tablet by ity of mg tablet 00:00: mouth [place] 00 the Medical morning. Branch fluticasone 2021-10 Yes [id number] 1{spray Use 1 Univers propionate 0-04 } [place] in ity o f 50 00:00: each [place] mcg/actuati 00 nostril in Me dical on nasal the Branch spray morning. azelastine 2021-10 Yes [id number] 1{spray Use 1 Univers 137 mcg 0-04 } [place] in ity of (0.1 %) 00:00: each [place] nasal spray 00 nostril in Me dical the Branch morning and 1 [place] in the evening. Use in each nostril as directed cetirizine 2021-10 Yes [id number] 10mg Take 1 Univers (ZYRTEC) 10 0-04 tablet by ity of mg tablet 00:00: mouth [place] 00 the Medical morning. Branch fluticasone 2021-10 Yes [id number] 1{spray Use 1 Univers propionate 0-04 } [place] in ity o f 50 00:00: each [place] mcg/actuati 00 nostril in Me dical on nasal the Branch spray morning. azelastine 2021-10 Yes [id number] 1{spray Use 1 Univers 137 mcg 0-04 } [place] in ity of (0.1 %) 00:00: each [place] nasal spray 00 nostril in Me dical the Branch morning and 1 [place] in the evening. Use in each nostril as directed cetirizine 2021-10 Yes [id number] 10mg Take 1 Univers (ZYRTEC) 10 0-04 tablet by ity of mg tablet 00:00: mouth [place] 00 the Medical morning. Branch fluticasone 2021-10 Yes [id number] 1{spray Use 1 Univers propionate 0-04 } [place] in ity o f 50 00:00: each [place] mcg/actuati 00 nostril in Me dical on nasal the Branch spray morning. azelastine 2021-10 Yes [id number] 1{spray Use 1 Univers 137 mcg 0-04 } [place] in ity of (0.1 %) 00:00: each [place] nasal spray 00 nostril in Me dical the Branch morning and 1 [place] in the evening. Use in each nostril as directed cetirizine 2021-10 Yes [id number] 10mg Take 1 Univers (ZYRTEC) 10 0-04 tablet by ity of mg tablet 00:00: mouth [place] 00 the Medical morning. Branch fluticasone 2021-10 Yes [id number] 1{spray Use 1 Univers propionate 0-04 } [place] in ity o f 50 00:00: each [place] mcg/actuati 00 nostril in Me dical on nasal the Branch spray morning. azelastine 2021-10 Yes [id number] 1{spray Use 1 Univers 137 mcg 0-04 } [place] in ity of (0.1 %) 00:00: each [place] nasal spray 00 nostril in Me dical the Branch morning and 1 [place] in the evening. Use in each nostril as directed cetirizine 2021-10 Yes [id number] 10mg Take 1 Univers (ZYRTEC) 10 0-04 tablet by ity of mg tablet 00:00: mouth [place] 00 the Medical morning. Branch fluticasone 2021-10 Yes [id number] 1{spray Use 1 Univers propionate 0-04 } [place] in ity o f 50 00:00: each [place] mcg/actuati 00 nostril in Me dical on nasal the Branch spray morning. azelastine 2021-10 Yes [id number] 1{spray Use 1 Univers 137 mcg 0-04 } [place] in ity of (0.1 %) 00:00: each [place] nasal spray 00 nostril in Me dical the Branch morning and 1 [place] in the evening. Use in each nostril as directed cetirizine 2021-10 Yes [id number] 10mg Take 1 Univers (ZYRTEC) 10 0-04 tablet by ity of mg tablet 00:00: [place] 00 the Medical morning. Branch meclizine 2021-0 2021- No TAKE 1 TO Un eri 12.5 mg 9-21 10-04 2 TABLETS ity of tablet 00:00: 00:00 BY MOUTH [place] 00 :00 AT NIGHT Medical NEEDED Branch buPROPion 2021-0 Yes 300mg Take 300 Uni vers XL 300 mg 9-10 mg by ity of 24 hr 00:00: mouth [place] tablet 00 every Medical morning. Branch buPROPion 2021-0 Yes 300mg Take 300 Uni vers XL 300 mg 9-10 mg by ity of 24 hr 00:00: mouth [place] tablet 00 every Medical morning. Branch buPROPion 2021-0 Yes 300mg Take 300 Uni vers XL 300 mg 9-10 mg by ity of 24 hr 00:00: mouth [place] tablet 00 every Medical morning. Branch buPROPion 2021-0 Yes 300mg Take 300 Uni vers XL 300 mg 9-10 mg by ity of 24 hr 00:00: mouth [place] tablet 00 every Medical morning. Branch buPROPion 2021-0 Yes 300mg Take 300 Uni vers XL 300 mg 9-10 mg by ity of 24 hr 00:00: mouth [place] tablet 00 every Medical morning. Branch buPROPion 2021-0 2022- No 300mg Take 1 Univ ers XL 300 mg 9-10 04-11 tablet by ity of 24 hr 00:00: 00:00 mouth [place] tablet 00 :00 every Medical morning. Branch buPROPion 2021-0 2022- No 300mg Take 1 Univ ers XL 300 mg 9-10 04-11 tablet by ity of 24 hr 00:00: 00:00 mouth [place] tablet 00 :00 every Medical morning. Branch lisinopriL 2-0 Yes 10mg Take 10 mg U nivers 10 mg 8-28 by mouth ity of tablet 00:00: in the [place] 00 morning. Medical Branch lisinopriL 2022-0 Yes 10mg Take 10 mg U nivers 10 mg 8-28 by mouth ity of tablet 00:00: in the [place] 00 morning. Medical Branch lisinopriL 2022-0 Yes 10mg Take 10 mg U nivers 10 mg 8-28 by mouth ity of tablet 00:00: in the [place] 00 morning. Medical Branch lisinopriL 2022-0 Yes 10mg Take 10 mg U nivers 10 mg 8-28 by mouth ity of tablet 00:00: in the [place] 00 morning. Medical Branch lisinopriL 2022-0 Yes 10mg Take 10 mg U nivers 10 mg 8-28 by mouth ity of tablet 00:00: in the [place] 00 morning. Medical Branch lisinopriL 2022-0 2023- No 10mg Take 1 Univ ers 10 mg 8-28 04-11 tablet by ity of tablet 00:00: 00:00 mouth in [place] 00 :00 the Medical morning. Branch lisinopriL 2022-0 2023- No 10mg Take 1 Univ ers 10 mg 8-28 04-11 tablet by ity of tablet 00:00: 00:00 mouth in [place] 00 :00 the Medical morning. Branch FLUoxetine 2-0 Yes 10mg Take 10 mg U nivers 10 mg 7-21 by mouth ity of capsule 00:00: in the [place] 00 morning. Medical Branch FLUoxetine 2022-0 Yes 10mg Take 10 mg U nivers 10 mg 7-21 by mouth ity of capsule 00:00: in the [place] 00 morning. Medical Branch FLUoxetine 2022-0 Yes 10mg Take 10 mg U nivers 10 mg 7-21 by mouth ity of capsule 00:00: in the [place] 00 morning. Medical Branch FLUoxetine 2022-0 Yes 10mg Take 10 mg U nivers 10 mg 7-21 by mouth ity of capsule 00:00: in the [place] 00 morning. Medical Branch FLUoxetine 2022-0 Yes 10mg Take 10 mg U nivers 10 mg 7-21 by mouth ity of capsule 00:00: in the [place] 00 morning. Medical Branch FLUoxetine 2022-0 2023- No 10mg Take 1 Univ ers 10 mg 7-21 04-11 capsule by ity of capsule 00:00: 00:00 mouth in [place] 00 :00 the Medical morning. Branch FLUoxetine 2022-0 2023- No 10mg Take 1 Univ ers 10 mg 7-21 04-11 capsule by ity of capsule 00:00: 00:00 mouth in [place] 00 :00 the Medical morning. Branch drospirenon 2021-0 Yes 1{tbl} Take 1 Un eri e-ethinyl 7-19 tablet by ity o f estradioL 00:00: mouth in [facility] s 3-0.03 mg 00 the Medical per tablet morning. [facility] h drospirenon Yes 1{tbl} Take 1 Un eri e-ethinyl 7-19 tablet by ity o f estradioL 00:00: [place] 3-0.03 mg 00 the Medical per tablet morning. Bran h drospirenon 0 Yes 1{tbl} Take 1 Un eri e-ethinyl 7-19 tablet by ity o f estradioL 00:00: [place] 3-0.03 mg 00 the Medical per tablet morning. [facility] h drospirenon Yes 1{tbl} Take 1 Un eri e-ethinyl 7-19 tablet by ity o f estradioL 00:00: mouth [place] 3-0.03 mg 00 the Medical per tablet morning. [facility] drospirenon Yes 1{tbl} Take 1 Un eri e-ethinyl 7-19 tablet by ity o f estradioL 00:00: mouth [place] 3-0.03 mg 00 the Medical per tablet morning. [facility] drospirenon Yes 1{tbl} Take 1 Un eri e-ethinyl 7-19 tablet by ity o f estradioL 00:00: mouth [place] 3-0.03 mg 00 the Medical per tablet morning. [facility] drospirenon Yes 1{tbl} Take 1 Un eri e-ethinyl 7-19 tablet by ity o f estradioL 00:00: mouth [place] 3-0.03 mg 00 the Medical per tablet morning. Bran h drospirenon Yes 1{tbl} Take 1 Un eri e-ethinyl 7-19 tablet by ity o f estradioL 00:00: mouth [place] 3-0.03 mg 00 the Medical per tablet morning. [facility] drospirenon 0 Yes 1{tbl} Take 1 Un eri e-ethinyl 7-19 tablet by ity o f estradioL 00:00: [place] 3-0.03 mg 00 the Medical per tablet morning. [facility] h triamcinolo 0 Yes APPLY THIN Univers ne 7-15 LAYER ity of acetonide 00:00: TOPICALLY [place] as 0.1 % cream 00 TO THE Medica l AFFECTED Branch AREA EVERY 12 HOURS FOR 14 DAYS [facility] Yes APPLY THIN Univers ne 7-15 LAYER ity of acetonide 00:00: TOPICALLY [place] as 0.1 % cream 00 TO THE Medica l AFFECTED Branch AREA EVERY 12 HOURS FOR 14 DAYS [facility] Yes APPLY THIN Univers ne 7-15 LAYER ity of acetonide 00:00: TOPICALLY [place] as 0.1 % cream 00 TO THE Medica l AFFECTED Branch AREA EVERY 12 HOURS FOR 14 DAYS [facility] Yes APPLY THIN Univers ne 7-15 LAYER ity of acetonide 00:00: TOPICALLY Saroj as 0.1 % cream 00 TO THE Medica l AFFECTED Branch AREA EVERY 12 HOURS FOR 14 DAYS [facility] Yes APPLY THIN Univers ne 7-15 LAYER ity of acetonide 00:00: TOPICALLY [place]oj as 0.1 % cream 00 TO THE Medica l AFFECTED Branch AREA EVERY 12 HOURS FOR 14 DAYS [facility] Yes APPLY THIN Univers ne 7-15 LAYER ity of acetonide 00:00: TOPICALLY [place] as 0.1 % cream 00 TO THE Medica l AFFECTED Branch AREA EVERY 12 HOURS FOR 14 DAYS [facility] Yes APPLY THIN Univers ne 7-15 LAYER ity of acetonide 00:00: TOPICALLY [place] as 0.1 % cream 00 TO THE Medica l AFFECTED Branch AREA EVERY 12 HOURS FOR 14 DAYS [facility] Yes APPLY THIN Univers ne 7-15 LAYER ity of acetonide 00:00: TOPICALLY Saroj as 0.1 % cream 00 TO THE Medica l AFFECTED Branch AREA EVERY 12 HOURS FOR 14 DAYS [facility] Yes APPLY THIN Univers ne 7-15 LAYER ity of acetonide 00:00: TOPICALLY Saroj as 0.1 % cream 00 TO THE Medica l AFFECTED Branch AREA EVERY 12 HOURS FOR 14 DAYS No known No No known Unive rs medications 4-17 medication it y of 21:06: s [place] [facility] butalbital- butalbital- No butalbital [place] acetaminoph acetaminoph -acetamino da en-caffeine en-caffeine phen-caffe Medical 50 mg-325 50 mg-325 ine 50 Christian up mg-40 mg mg-40 mg mg-325 tablet TAKE tablet TAKE mg-40 mg 1 TABLET BY 1 TABLET BY tablet MOUTH TWICE MOUTH TWICE TAKE 1 DAILY DAILY TABLET BY NEEDED FOR NEEDED FOR MOUTH HEADACHE HEADACHE TWICE DAILY NEEDED FOR HEADACHE epinephrine epinephrine No epinephrin [place] 0.3 mg/0.3 0.3 mg/0.3 e 0.3 da mL mL mg/0.3 mL Medical injection, injection, injection, Group auto-inject auto-inject auto-injec or or tor ADMINISTER ADMINISTER ADMINISTER 0.3 ML IN 0.3 ML IN 0.3 ML IN THE MUSCLE THE MUSCLE THE MUSCLE 1 TIME 1 TIME 1 TIME NEEDED FOR NEEDED FOR NEEDED FOR ANAPHYLAXIS ANAPHYLAXIS ANAPHYLAXI S lisinopril lisinopril No lisinopril [place] 10 mg 10 mg 10 mg da tablet TAKE tablet TAKE tablet Medical 1 TABLET BY 1 TABLET BY TAKE 1 Group MOUTH EVERY MOUTH EVERY TABLET BY DAY DAY MOUTH EVERY DAY Lo Loestrin Lo Loestrin No 1 Q1D Lo M [place] Fe 1 mg-10 Fe 1 mg-10 Loestrin da mcg (24)/10 mcg (24)/10 Fe 1 mg-10 Medical mcg (2) mcg (2) mcg Group tablet Take tablet Take (24)/10 1 tablet 1 tablet mcg (2) every day every day tablet by oral by oral Take 1 route. route. tablet every day by oral route. albuterol albuterol No albuterol [place] sulfate HFA sulfate HFA sulfate da 90 90 HFA 90 Medical mcg/actuati mcg/actuati mcg/actuat Group on aerosol on aerosol ion inhaler inhaler aerosol inhaler Aurovela Fe Aurovela Fe No Aurovela [place] 1-20 (28) 1 1-20 (28) 1 Fe 1-20 da mg-20 mcg mg-20 mcg (28) 1 Med ical (21)/75 mg (21)/75 mg mg-20 mcg Group (7) tablet (7) tablet (21)/75 mg TAKE 1 TAKE 1 (7) tablet TABLET BY TABLET BY TAKE 1 MOUTH EVERY MOUTH EVERY TABLET BY DAY DAY MOUTH EVERY DAY azelastine azelastine No azelastine [place] 137 mcg 137 mcg 137 mcg da (0.1 %) (0.1 %) (0.1 %) Medica l nasal spray nasal spray nasal Group aerosol aerosol spray aerosol bupropion bupropion No bupropion [place] HCl XL 300 HCl XL 300 HCl XL 300 da mg 24 hr mg 24 hr mg 24 hr Med ical tablet, tablet, tablet, Group extended extended extended release release release TAKE 1 TAKE 1 TAKE 1 TABLET BY TABLET BY TABLET BY MOUTH EVERY MOUTH EVERY MOUTH DAY IN THE DAY IN THE EVERY DAY MORNING MORNING IN THE MORNING Vital Signs Vital Name Observation Time Observation Value Comments Source Systolic blood 2023-01-27 18:49:00 124 mm[Hg] Univer sity [facility] Diastolic blood 2023-01-27 18:49:00 67 mm[Hg] [facility] 2023-01-27 18:49:00 63 /min [facility] Body temperature 2023-01-27 18:49:00 36.39 Patti [facility] Respiratory rate 2023-01-27 18:49:00 16 /min [facility] Body height 2023-01-27 18:49:00 152 cm [facility] Body weight 2023-01-27 18:49:00 67.314 kg [facility] BMI 2023-01-27 18:49:00 29.13 kg/m2 [facility] Oxygen saturation in 2023-01-27 18:49:00 100 /min University of Arterial blood by [facility] Pulse oximetry Branch Systolic blood 2022-10-13 19:03:00 125 mm[Hg] [facility]astolic blood 2022-10-13 19:03:00 79 mm[Hg] [facility] rate 2022-10-13 19:03:00 126 /[facility] temperature 2022-10-13 19:03:00 37.94 [facility] Respiratory rate 2022-10-13 19:03:00 18 /min [facility] Oxygen saturation in 2022-10-13 19:03:00 98 /min University of Arterial blood by [facility] Pulse oximetry Branch Systolic blood 2022-09-26 21:00:00 124 mm[Hg] Univer sity of pressure [facility] Branch Diastolic blood 2022-09-26 21:00:00 79 mm[Hg] Unive rsity of pressure [facility] Branch Heart rate 2022-09-26 21:00:00 66 /min Universi ty of [facility] Respiratory rate 2022-09-26 21:00:00 18 /min Univ ersity of [facility] Branch Oxygen saturation in 2022-09-26 21:00:00 98 /min University of Arterial blood by [facility] emily Pulse oximetry Branch Body temperature 2022-09-26 18:33:00 36.89 Patti Univ ersity of [facility] Body height 2022-09-26 18:33:00 152.4 cm [facility]i [facility] [place] [facility] Body weight 2022-09-26 18:33:00 58.968 kg [facility] [place] [facility] BMI 2022-09-26 18:33:00 25.39 kg/m2 Universi ty of [facility] Systolic blood 2022-07-22 23:08:00 142 mm[Hg] Univer sity of pressure [facility] Diastolic blood 2022-07-22 23:08:00 81 mm[Hg] Unive rsity of pressure [facility] Heart rate 2022-07-22 23:08:00 67 /min Universi ty of [facility] Body temperature 2022-07-22 23:08:00 36.72 Patti Univ ersity of [facility] Branch Respiratory rate 2022-07-22 23:08:00 16 /min Univ ersity of [facility] Branch Body height 2022-07-22 23:08:00 152.4 cm [facility] [place] [facility] Body weight 2022-07-22 23:08:00 58.968 kg [facility] [place] [facility] BMI 2022-07-22 23:08:00 25.39 kg/m2 [facility] [place] [facility] Oxygen saturation in 2022-07-22 23:08:00 98 /min University of Arterial blood by [facility] Pulse oximetry Branch BP Diastolic 2021-09-03 00:00:00 96 mm[Hg] [facility] Height 2021-09-03 00:00:00 60 [in_i] [facility] BMI (Body Mass 2021-09-03 00:00:00 28.3 kg/m2 [facility]) Group BP Systolic 2021-09-03 00:00:00 146 mm[Hg] [facility] Body Weight 2021-09-03 00:00:00 144.8 [lb_av] [facility] Procedures Procedure Date / Time Performed Performing Clinician [facility] e XR CHEST 2 2022-10-13 19:43:25 [facility] [place] [facility] XR CHEST 1 VW 2022-09-26 20:11:37 Chiara Richards [facility] CT ABDOMEN PELVIS W 2022-09-26 20:09:59 Chiara Richards [facility] URINALYSIS 2022-09-26 19:53:00 Chiara Richards [facility] POCT TEST 2022-09-26 19:51:00 Chiara Richards [facility] LIPASE 2022-09-26 19:18:00 Chiara Richards [facility] TROPONIN I 2022-09-26 19:18:00 Chiara Richards [facility] COMP. METABOLIC PANEL 2022-09-26 19:18:00 Chiara Richards [facility] ([id number]) [facility] CBC WITH DIFF 2022-09-26 19:18:00 Chiara Richards [facility] CONSENT/REFUSAL FOR 2022-09-26 18:26:28 Doctor Unassigned, No [facility] DIAGNOSIS AND [facility] TREATMENT ASSIGNMENT OF BENEFITS 2022-07-22 23:01:50 Doctor Unassigned, No [facility] Plan of Care Planned Activity Planned Date Details Comments Source Diagnostic Test 2021-09-03 culture, urine [facility] Pending 00:00:00 [code = culture, Group urine] Diagnostic Test 2021-09-03 urinalysis, [facility] Pending 00:00:00 dipstick [code = Group urinalysis, dipstick] Diagnostic Test 2021-09-03 test, [facility] Pending 00:00:00 urine [code = Group test, urine] Encounters Start End Encounter Admission Attending Care Care Encounter Source Date/Time Date/Time Type Type Clinicians Facility Department ID 2023-02-10 2023-02-10 Outpatient R MAD[facility]ON [facility] [id number] Univers 13:45:00 13:45:00 , MARIA DEL ROSARIO baez [facility] 2023-01-27 2023-01-27 Bundle Breaker Lab, Ang - Db [facility] 1.2.840.1 [id number] Univers 14:30:00 14:51:30 Visit Maria Del Rosario [facility] 350.1 .13.10 ity of [place] 4.2.7.2.686 Saroj as JESSICA?BLEA [phone] Mn holger [facility] [address] MEDICAL OFFICE BUILDING 2023-01-27 2023-01-27 Outpatient R MADYSON [facility] [id number] Univers 14:00:00 14:37:11 , MARIA DEL ROSARIO it nestor [facility] 2023-01-27 2023-01-27 Office [facility] [id number] Univers 14:00:00 14:37:11 Visit , Maria Del Rosario [facility] 350.1.13.10 ity of [facility] 4.2.7.2.686 Saroj as JESSICA?BLEA [id number] Mn holger [facility] [address] MEDICAL OFFICE BUILDING 2022-10-13 2022-10-13 Outpatient R ARLEY [facility] [id number] Univers 13:12:25 23:59:00 REENU ity [facility] 2022-10-13 2022-10-13 [facility] [id number] Univers 13:12:25 23:59:00 Encounter [facility] HEALTH 350.1.13.10 ity of [place] 4.2.7.2.686 Saroj as JESSICA?BLEA [phone] Mn holger [facility] [address] MEDICAL OFFICE BUILDING 2022-10-13 2022-10-13 [facility] [id number] Univers 13:00:00 13:20:00 Care Unknown, Attending HEALTH 350.1.13.10 ity of [place] 4.2.7.2.686 Saroj as JESSICA?BLEA [id number] [address] MEDICAL OFFICE BUILDING 2022-10-13 2022-10-13 Outpatient R UNKNOWN, [facility] [id number] Univers 13:00:00 13:00:00 ATTENDING ity of [facility] 2022-09-26 2022-09-[address] [facility] ERT [id number] Univers 12:34:00 16:05:00 CHIARA ity of [facility] 2022-09-26 2022-09-26 Emergency [facility] [id number] Univers 12:34:00 16:05:00 Chiara G ELISSA 350.1.13.10 ity of [place].7.2.[place] [id number] [facility] [address] 2022-07-22 2022-07-22 Urgent Sunitha Thomson [facility] 1.2.840.114 [id number] Univers 18:00:00 18:20:54 Care Shanon Beck [facility] 350.1.13.10 ity of [place] 4.2.7.2.686 Saroj as JESSICA?BLEA [id number] [address] MEDICAL OFFICE [facility] 2022-07-22 2022-07-22 Outpatient [facility] [id number] Univers 18:00:00 18:20:54 SHANON swifty o f [facility] 2022-07-22 2022-07-22 Orders Doctor JOELLE 1.2.840.114 [id number] Univers 00:00:00 00:00:00 Only Unassigned, KWABENA 350.1.13.10 ity of [place] [facility] 4.2.7.2.686 Saroj as [phone] [facility] 009 Branch 2022-07-22 2022-07-22 Letter Provider, [facility] [id number] Univers 00:00:00 00:00:00 (Out) Ang HEALTH 350.1.13.10 it y of Urgent Care [place] 4.2.7.2.686 [place] JESSICA?BLEA [phone] Mn holger [place] [address] [place] [address] MEDICAL OFFICE BUILDING 2021-09-05 2021-09-05 Outpatient White_M [facility] [id number] [place] 08:33:00 08:33:00 1118 [facility] 2021-09-03 2021-09-03 Mounika [place] - [id number] [place] 00:00:00 00:00:00 Discovery Mariajose 1116 da [facility]: [address] O[address]YN [address], [place] [address] , Ph. [phone] 2021-08-28 2021-08-28 [facility] [id number] [place] 02:05:00 02:05:00 1110 [facility] Results Test Description Test Time Test Comments Results Result Comments Source TROPONIN I 2022-09-26 19:54:07 Test Item Value Reference Range Interpretation Comme nts TROPONIN I (test code = 0.002 ng/mL See_Comment [Au tomated message] The [id number]) system which ge nerated this result tra nsmitted reference range : <=0.034. The reference r misa was not used to int erpret this result as normal/abnormal . AVRIL (test code = AVRIL) Reference (Normal) Range (defined by the 99th percentile reference limit): <= 0.034 ng/mL Note: Cardiac troponin begins to rise 3-4 hours after the onset of ischemia. Repeat in 4-6 hours if the sample was drawn within 3-4 hours of the onset of the symptom and found normal. Diagnosis of myocardial injury is made with acute changes in cTn concentrations with at least one serial sample above the 99th percentile upper reference limit (URL), taken together with the patient's clinical presentation. Biotin has been reported to cause a negative bias, interpret results relative to patient's use of biotin. Lab Interpretation Normal (test code = 35729-7) [facility] [id number] 19:51:00 Test Item Value Reference Range Interpretation Comments POCT PREG (test code = 1605) negative On board controls acceptable with C present Line (test code = 3574) Lab Interpretation (test code = Normal 59553-8) [facility] ([id number])2022-09-26 19:43:07 Test Item Value Reference Range Interpretation Comments NA (test code = 139 mmol/L 135-145 3095945168) K (test code = 4.5 mmol/L 3.5-5.0 9301364188) CL (test code = 106 mmol/L 98-108 5364495198) CO2 TOTAL (test code 24 mmol/L 23-31 = 5322151510) AGAP (test code = 2-16 3126474154) BUN (test code = 12 mg/dL 7-23 7784899267) GLUCOSE (test code = 101 mg/dL 70-110 6586113110) CREATININE (test code 0.69 mg/dL 0.50-1.04 = 1616792446) TOTAL BILI (test code 0.3 mg/dL 0.1-1.1 = 7039497208) CALCIUM (test code = 9.5 mg/dL 8.6-10.6 0695487709) T PROTEIN (test code 7.5 g/dL 6.3-8.2 = 3155743070) ALBUMIN (test code = 4.6 g/dL 3.5-5.0 4852520682) ALK PHOS (test code = 82 U/L 34-122 3382398626) ALTv (test code = 31 U/L 5-35 1742-6) AST(SGOT) (test code 26 U/L 13-40 = 5543819395) eGFR (test code = mL/min/1.73m2 7170231519) AVRIL (test code = AVRIL) Association of Glomerular Filtration Rate (GFR) and Staging of Kidney Disease* + + +- +| GFR (mL/min/1.73 m2) ?| With Kidney Damage ?| ?Without Kidney Damage+ ------+ ----+ ------+| ?>90 ?| ?Stage one ?| ? Normal ?+ -+ + -+| ?60-89 ?| ?Stage two ?| ? Decreased GFR ? + + +- +| ?30-59 ?| ?Stage three ?| ? Stage three ? + + +- +| ?15-29 ?| ?Stage four ? | ? Stage four ?+ -+ + -+| ?<15 (or dialysis) ? ?| ?Stage five ? | ? Stage five ?+ -+ + -+ *Each stage assumes the associated GFR level has been in effect for at least three months. ?Stages 1 to 5, with or without kidney disease, indicate chronic kidney disease. Notes: Determination of stages one and two (with eGFR >59mL/min/1.73 m2) requires estimation of kidney damage for at least three months as defined by structural or functional abnormalities of the kidney, manifested by either:Pathological abnormalities or Markers of kidney damage (including abnormalities in the composition of the blood or urine or abnormalities in imaging tests). [facility] 19:42:47 Test Item Value Reference Range Interpretation Comments LIPASE (test code = 7184031059) 45 U/L 0-220 Lab Interpretation (test code = Normal 99374-3) [facility] WITH [id number] 19:35:46 Test Item Value Reference Range Interpretation Comments WBC (test code = See_Comment [Automated 90-2) message] The sy stem which generated this result transmitted reference range : 4.30 - 11.10 10*3/?L. The reference range was not used to interpret this result as normal/abnormal . RBC (test code = See_Comment [Automated 782-8) message] The sy stem which generated this result transmitted reference range : 3.93 - 5.25 10*6/?L. The reference range was not used to interpret this result as normal/abnormal . HGB (test code = 13.4 g/dL 11.6-15.0 718-7) HCT (test code = 41.7 % 35.7-45.2 4544-3) MCV (test code = 84.8 fL 80.6-95.5 787-2) MCH (test code = 27.2 pg 25.9-32.8 785-6) MCHC (test code = 32.1 g/dL 31.6-35.1 786-4) RDW-SD (test code = 40.0 fL 39.0-49.9 16833-4) RDW-CV (test code = 13.0 % 12.0-15.5 788-0) PLT (test code = See_Comment H [Automated 777-3) message] The sy stem which generated this result transmitted reference range : 166 - 358 10*3/ ?L. The reference r misa was not used to interpret this result as normal/abnormal . MPV (test code = 9.9 fL 9.5-12.9 83551-2) NRBC/100 WBC (test See_Comment [Automat ed code = 5059627498) message] The system which generated this result transmitted reference range : 0.0 - 10.0 /100 WBCs. The refer ence range was not u sed to interpret th is result as normal/abnormal . NRBC x10^3 (test code See_Comment [Auto mated = 0016872796) message] The s ystem which generated this result transmitted reference range : 10*3/?L. The reference range was not used to interpret this result as normal/abnormal . GRAN MAT (NEUT) % 67.6 % (test code = 770-8) IMM GRAN % (test code 0.40 % = 9878330192) LYMPH % (test code = 24.9 % 736-9) MONO % (test code = 4.7 % 5905-5) EOS % (test code = 1.5 % 713-8) BASO % (test code = 0.9 % 706-2) GRAN MAT x10^3(ANC) 6.95 10*3/uL 1.88-7.09 (test code = 4232687875) IMM GRAN x10^3 (test 0.04 10*3/uL 0.00-0.06 code = 8183203715) LYMPH x10^3 (test code 2.56 10*3/uL 1.32-3.29 = 731-0) MONO x10^3 (test code 0.48 10*3/uL 0.33-0.92 = 742-7) EOS x10^3 (test code = 0.15 10*3/uL 0.03-0.39 711-2) BASO x10^3 (test code 0.09 10*3/uL 0.01-0.07 H = 704-7) Lab Interpretation Abnormal (test code = 14422-2) [facility] macro (dipstick) panel - Urine 2021-09-03 11:00:00 Test Item Value Reference Range Interpretation Comments Leukocytes (test code = Leukocytes) Moderate Nitrite (test code = Nitrite) negative Urobilinogen (test code = .2 Urobilinogen) Protein (test code = Protein) Negative pH (test code = pH) 6.5 Blood (test code = Blood) Negative Specific [place] (test code = 1.020 Specific [place]) Ketone (test code = Ketone) Negative Bilirubin (test code = Bilirubin) Negative Glucose (test code = Glucose) Negative Appearance (test code = Appearance) Clear Color (test code = Color) Yellow [facility]"
[2023-05-30] MEDS ORDERED: HYDROCODONE/APAP 7.5/325 MG TAB ONE (13:31)
[2023-05-30] MEDS ORDERED: dexAMETHasone 10 MG/ML VIAL ONE (13:31)
--- NOTE | 2023-05-30 13:33 | ER ---
Nurse's Notes [facility] Name: Sarita Tracy Age: 38 yrs Sex: Female : 1985 Arrival Date: 05/30/2023 Time: 13:00 Bed 12 Private MD: Diagnosis: Low back pain Presentation: 05/30 13:13 Chief complaint: Patient states: "I have bulging discs and I was supposed to see a back ss specialist next week, but come to find out, they do not take my insurance." Denies injury, but reports the pain is worsening. Coronavirus screen: Client denies travel out of the [place] in the last 14 days. Ebola Screen: Patient denies exposure to infectious person. Patient denies travel to an Ebola-affected area in the 21 days before illness onset. Initial Sepsis Screen: Does the patient meet any 2 criteria? No. Patient's initial sepsis screen is negative. Does the patient have a suspected source of infection? No. Patient's initial sepsis screen is negative. Risk Assessment: Do you want to hurt yourself or someone else? Patient reports no desire to harm self or others. Onset of symptoms is unknown. 13:13 Method Of Arrival: Wheelchair ss 13:13 Acuity: ROSA 3 ss Historical: - Allergies: 13:16 No Known Allergies; ss - PMHx: 13:14 Anxiety; Cerebral Palsy; Depression; Hypertension; ss Screenin:47 [facility] ED Fall Risk Assessment (Adult) History of falling in the last 3 months, ss including since admission No falls in past 3 months (0 pts). Abuse screen: Denies threats or abuse. Denies injuries from another. Nutritional screening: No deficits noted. Tuberculosis screening: Never had TB. Assessment: 13:47 General: Appears in no apparent distress. comfortable, Behavior is calm, cooperative. ss Neuro: Level of Consciousness is awake, alert, obeys commands, Oriented to person, place, time, situation. Respiratory: Airway is patent Respiratory effort is even, unlabored, Respiratory pattern is regular, symmetrical. Derm: Skin is pink, warm \\T\\ dry. normal. Musculoskeletal: Circulation, motion, and sensation intact. Range of motion: intact in all extremities, Swelling absent. Vital Signs: 13:13 BP 119 / 78; Pulse 72; Resp 14; Temp 98.2(TE); Pulse Ox 98% on R/A; Weight 58.97 kg; ss Height 4 ft. 11 in. ; Pain 5/10; 13:13 Body Mass Index 26.26 (58.97 kg, 149.86 cm) ss 13:13 Pain Scale: Adult ss ED Course: 13:02 Patient arrived in ED. ts1 13:02 Digna Johnson FNP-C is [facility]. kb 13:02 Lenard Kwon MD is Attending Physician. kb 13:14 Triage completed. ss 13:14 Arm band placed on right wrist. ss 13:47 Patient has correct armband on for positive identification. ss 13:47 No provider procedures requiring assistance completed. Patient did not have IV access ss during this emergency room visit. Administered Medications: 13:26 Drug: Hydrocodone-Acetaminophen PO (7.5 mg-325 mg) 1 tabs Route: PO; ss 13:49 Follow up: Response: No adverse reaction; Medication administered at discharge. ss 13:26 Drug: Dexamethasone IM 10 mg Route: IM; Site: left gluteus; ss 13:50 Follow up: Response: No adverse reaction; Medication administered at discharge. ss Medication: 13:47 VIS not applicable for this client. ss Outcome: 13:33 Discharge ordered by MD. kb 13:47 Discharged to home via wheelchair, with family. ss 13:47 Condition: good 13:47 Discharge instructions given to patient, Instructed on discharge instructions, follow up and referral plans. Demonstrated understanding of instructions, follow-up care. 13:50 Patient left the ED. ss Signatures: Digna Johnson FNP-C FNP-Ckb Blanchard, Shelby, RN RN Lorna Lopez PAS PAS ts1 Corrections: (The following items were deleted from the chart) 13:15 13:13 Acuity: ROSA 4 ss ss
--- NOTE | 2023-05-30 13:33 | EDPHYS ---
Physician Documentation [facility] Name: Sarita Tracy Age: 38 yrs Sex: Female : 1985 Arrival Date: 05/30/2023 Time: 13:00 Bed 12 Private MD: ED Physician Lenard Kwon HPI: 05/30 13:29 This 38 yrs old Female presents to ER via Wheelchair with complaints of Back Pain. kb 13:29 The patient presents with pain that is acute. The symptoms are located in the lumbar kb spine. Onset: The symptoms/episode began/occurred 2 week(s) ago. The pain does not radiate. Associated signs and symptoms: Pertinent positives: none. The problem was sustained without known cause. Modifying factors: The patient symptoms are alleviated by nothing, the patient symptoms are aggravated by any movement. Severity of symptoms: At their worst the symptoms were moderate, in the emergency department the symptoms are unchanged. The patient has not experienced similar symptoms in the past. The patient has been recently seen by a physician:. Pt reports pain in lumbar spine that started a few weeks ago. States she was seen by PCP and diagnosed with bulging discs, was supposed to follow up with a spine dr on Thursday but they didn't take her insurance. Denies injury or trauma. Denies incontinence of bowel and bladder, urinary retention, constipation, numbness, tingling. . Historical: - Allergies: 13:16 No Known Allergies; ss - PMHx: 13:14 Anxiety; Cerebral Palsy; Depression; Hypertension; ss ROS: 13:28 Constitutional: Negative for fever, chills, and weight loss. kb 13:28 Back: Positive for pain at rest, pain with movement, of the lumbar area. 13:28 All other systems are negative. Exam: 13:28 Constitutional: This is a well developed, well nourished patient who is awake, alert, kb and in no acute distress. Head/Face: Normocephalic, atraumatic. ENT: Moist Mucous membranes Cardiovascular: Regular rate and rhythm with a normal S1 and S2. No gallops, murmurs, or rubs. No pulse deficits. Respiratory: Respirations even and unlabored. No increased work of breathing. Talking in full sentences Skin: Warm, dry with normal turgor. Normal color. MS/ Extremity: Pulses equal, no cyanosis. Neurovascular intact. Full, normal range of motion. Neuro: Awake and alert, GCS 15, oriented to person, place, time, and situation. Moves all extremities. Normal gait. 13:28 Back: pain, that is mild, that is moderate, of the lumbar area, ROM is painful, normal spinal alignment noted, CVA tenderness, is absent. Vital Signs: 13:13 BP 119 / 78; Pulse 72; Resp 14; Temp 98.2(TE); Pulse Ox 98% on R/A; Weight 58.97 kg; ss Height 4 ft. 11 in. ; Pain 5/10; 13:13 Body Mass Index 26.26 (58.97 kg, 149.86 cm) ss 13:13 Pain Scale: Adult ss MDM: 13:02 Patient medically screened. kb 13:28 Differential diagnosis: arthritis, chronic back pain, Fracture ruptured disc, herniated kb disc. Data reviewed: vital signs, nurses notes. Counseling: I had a detailed discussion with the patient and/or guardian regarding: the historical points, exam findings, and any diagnostic results supporting the discharge/admit diagnosis, the need for outpatient follow up, a family practitioner, to return to the emergency department if symptoms worsen or persist or if there are any questions or concerns that arise at home. ED course: Pt educated to follow up with spine or PCP for possible MRI. Educated on return precautions. Administered Medications: 13:26 Drug: Hydrocodone-Acetaminophen PO (7.5 mg-325 mg) 1 tabs Route: PO; ss 13:49 Follow up: Response: No adverse reaction; Medication administered at discharge. ss 13:26 Drug: Dexamethasone IM 10 mg Route: IM; Site: left gluteus; ss 13:50 Follow up: Response: No adverse reaction; Medication administered at discharge. Disposition: 16:48 Co-signature as Attending Physician, Lenard Kwon MD I agree with the assessment and kdr plan of care. Disposition Summary: 05/30/23 13:33 Discharge Ordered Location: Home Condition: Stable kb Diagnosis - Low back pain kb Followup: kb - With: Emergency Department - When: As needed - Reason: Worsening of condition Followup: kb - With: Private Physician - When: 2 - 3 days - Reason: Recheck today's complaints, Continuance of care, Re-evaluation by your physician Discharge Instructions: - Discharge Summary Sheet kb - Acute Back Pain, Adult kb - Musculoskeletal Pain kb Forms: - Medication Reconciliation Form kb - Thank You Letter kb - Antibiotic Education kb - Prescription Opioid Use kb - Patient Portal Instructions kb - Leadership Thank You Letter kb Prescriptions: - Diclofenac Sodium 75 mg Oral tablet,delayed release (DR/EC) - take 1 tablet by ORAL route 2 times per day As needed; 30 tablet; Refills: 0, kb Product Selection Permitted - orphenadrine citrate 100 mg Oral Tablet Sustained Release - take 1 tablet by ORAL route 2 times per day As needed; 20 tablet; Refills: 0, kb Product Selection Permitted Signatures: Digna Johnson, URVASHIC PATT-Lenard Pagan MD MD kdr Blanchard, Shelby RN RN ss
[2023-05-30 13:55] VITALS: BP 119/78; TEMP 98.2; O2SAT 98
== END 2023-05-30 13:50 | disposition home or self-care (01) ==
LOC: ER 13:00
DX: M54.50 Low back pain, unspecified (principal)
CPT/HCPCS: 96372; 99284; J1100

== ENCOUNTER → 2023-11-08 | Emergency (ER) | payer OTHER ==
[~2023-11-08] MED LIST: GABAPENTIN 300 MG CAP ONE
--- NOTE | 2023-11-08 17:06 | ER ---
Nurse's Notes [facility] Name: Sarita Tracy Age: 38 yrs Sex: Female : 1985 Arrival Date: 11/08/2023 Time: 16:47 Bed 12 Private MD: Diagnosis: Pain in left foot;Pain in right foot Presentation: 11/08 16:52 Chief complaint: Patient states: both feet are hurting, more like a burning sensation. ko1 Its been going on for a long time but worse today. Coronavirus screen: At this time, the client does not indicate any symptoms associated with coronavirus-19. Ebola Screen: No symptoms or risks identified at this time. Initial Sepsis Screen: Does the patient meet any 2 criteria? No. Patient's initial sepsis screen is negative. Does the patient have a suspected source of infection? No. Patient's initial sepsis screen is negative. Risk Assessment: Do you want to hurt yourself or someone else? Patient reports no desire to harm self or others. Onset of symptoms is unknown. 16:52 Method Of Arrival: Ambulatory ko1 16:52 Acuity: ROSA 3 ko1 Triage Assessment: 16:56 General: Appears in no apparent distress. Behavior is calm, cooperative, appropriate ko1 for age. Pain: Complains of pain in right foot and left foot. Historical: - Allergies: 16:56 No Known Allergies; ko1 - PMHx: 16:56 Anxiety; Cerebral Palsy; Depression; Hypertension; ko1 - Immunization history:: Adult Immunizations up to date. - Social history:: Smoking status: Patient denies any tobacco usage or history of. Screenin:[address] [facility] ED Fall Risk Assessment (Adult) History of falling in the last 3 months, ko1 including since admission No falls in past 3 months (0 pts). Abuse screen: Denies threats or abuse. Denies injuries from another. Nutritional screening: No deficits noted. Tuberculosis screening: No symptoms or risk factors identified. Assessment: 17:25 Pain: Complains of pain in left foot and right foot. ko1 Vital Signs: 16:52 BP 152 / 104; Pulse 92; Resp 16; Temp 97.8; Pulse Ox 100% ; ko1 17:25 BP 148 / 98; Pulse 88; Resp 15; Pulse Ox 99% ; ko1 ED Course: 16:50 Patient arrived in ED. im 16:56 Triage completed. ko1 16:56 Arm band placed on right wrist. Patient placed in an exam room, on a stretcher, on ko1 pulse oximetry, Patient notified of wait time. 16:57 Marichuy Ibrahim, RN is Primary Nurse. cm10 16:57 Dign[facility] Johnson [facility]C [facility]. kb 16:57 Ac Gamble MD is Attending Physician. kb 17:25 Patient has correct armband on for positive identification. Bed in low position. Call ko1 light in reach. Side rails up X 1. Provided Education on: na. 17:25 No provider procedures requiring assistance completed. Patient did not have IV access ko1 during this emergency room visit. Administered Medications: 17:12 Drug: Gabapentin PO 300 mg PO once Route: PO; cm10 Medication: 17:25 VIS not applicable for this client. ko1 Outcome: 17:05 Discharge ordered by . kb 17:25 Discharged to home ambulatory, with family, ko1 17:25 Condition: stable 17:25 Discharge instructions given to patient, family, Instructed on discharge instructions, follow up and referral plans. Demonstrated understanding of instructions, follow-up care, 17:26 Patient left the ED. ko1 Signatures: Digna Johnson FNP-C FNP-Li Rivas RN RN ko1 Aimee Mabry Marichuy Ibrahim, RN RN cm10
--- NOTE | 2023-11-08 17:06 | EDPHYS ---
Physician Documentation [facility] Name: Sarita Tracy Age: 38 yrs Sex: Female : 1985 Arrival Date: 11/08/2023 Time: 16:47 Bed 12 Private MD: ED Physician Ac Gamble HPI: 11/08 17:02 This 38 yrs old Female presents to ER via Ambulatory with complaints of Foot kb Pain - Both. 17:02 Pt is a 38 year old female who presents with burning sensation to bilateral feet for kb one month. States she had back surgery on 10/15/23 and it began after that surgery. Reports burning sensation is constant, but worse at night. Denies numbness or tingling. Full ROM of all extremities. . Historical: - Allergies: 16:56 No Known Allergies; ko1 - PMHx: 16:56 Anxiety; Cerebral Palsy; Depression; Hypertension; ko1 - Immunization history:: Adult Immunizations up to date. - Social history:: Smoking status: Patient denies any tobacco usage or history of. ROS: 17:01 Constitutional: Negative for fever, chills, and weight loss, kb 17:01 MS/extremity: Positive for of the right foot and left foot, burning sensation, 17:01 All other systems are negative, Exam: 17:01 Constitutional: This is a well developed, well nourished patient who is awake, alert, kb and in no acute distress. Head/Face: Normocephalic, atraumatic. ENT: Moist Mucous membranes Cardiovascular: Regular rate Respiratory: Respirations even and unlabored. No increased work of breathing. Talking in full sentences Skin: Warm, dry with normal turgor. Normal color. MS/ Extremity: Pulses equal, no cyanosis. Neurovascular intact. Full, normal range of motion. Neuro: Awake and alert, GCS 15, oriented to person, place, time, and situation. Moves all extremities. Normal gait. Vital Signs: 16:52 BP 152 / 104; Pulse 92; Resp 16; Temp 97.8; Pulse Ox 100% ; ko1 17:25 BP 148 / 98; Pulse 88; Resp 15; Pulse Ox 99% ; ko1 MDM: 16:57 Patient medically screened. kb 17:01 Differential diagnosis: dvt, pvd, neuropathy. Data reviewed: vital signs, nurses notes. kb Counseling: I had a detailed discussion with the patient and/or guardian regarding the historical points, exam findings, and any diagnostic results supporting the discharge/admit diagnosis, the need for outpatient follow up, a neurosurgeon, to return to the emergency department if symptoms worsen or persist or if there are any questions or concerns that arise at home. 17:03 ED course: Pt will call surgeon in the morning for follow up. will give gabapentin now. kb . 17:06 Test considered but Not performed: Ultrasound US considered, but pulses 2+ bilaterally, kb cap refill <2 seconds, color and temperature wnl. . Administered Medications: 17:12 Drug: Gabapentin PO 300 mg PO once Route: PO; cm10 Disposition: 18:33 Co-signature as Attending Physician, Ac Gamble MD I reviewed the patient's care rn provided by the Advanced Practice Provider and agree with the diagnosis and treatment plan. Disposition Summary: 11/08/23 17:05 Discharge Ordered Notes: Location: Home kb Condition: Stable kb Diagnosis - Pain in left foot kb - Pain in right foot kb Followup: kb - With: Emergency Department - When: As needed - Reason: Worsening of condition Followup: kb - With: Private Physician - When: 2 - 3 days - Reason: Recheck today's complaints, Continuance of care, Re-evaluation by your physician Discharge Instructions: - Discharge Summary Sheet kb - Musculoskeletal Pain kb - Neuropathic Pain kb Forms: - Medication Reconciliation Form kb - Thank You Letter kb - Antibiotic Education kb - Prescription Opioid Use kb - Patient Portal Instructions kb - Leadership Thank You Letter kb Signatures: Digna Johnson FNP-Rosa GAP-Ac Brooks MD MD rn Oliver, Kathy RN RN ko1 Marichuy Ibrahim, RN RN cm10
[2023-11-08 18:08] VITALS: BP 148/98; TEMP 97.8; O2SAT 99
== END ==
LOC: ER 16:47
DX: M79.672 Pain in left foot (principal); M79.671 Pain in right foot; G80.9 Cerebral palsy, unspecified
CPT/HCPCS: 99283

== ENCOUNTER 2024-09-25 15:08 | Emergency (ER) | payer OTHER ==
--- OUTSIDE RECORDS SUMMARY | 2024-09-25 15:15 | XMS REPORT | Continuity of Care Document ---
Author Name Unknown Address [address] [facility] [address] [place] [address] [facility] Address [address] [facility]. 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 Repairer Helper Name Role Phone DIDIER BLOCK Primary Care Physician UnavailDR KATERIN Peterson Attending Clinician UnavailDR KATERIN Frances Attending Clinician Unavaila kandace RADIOLOGY Attending Clinician Unavailable Radiology Attending Clinician Unavailable ENID LEVIN Attending Clinician Unavailable ENID LEVIN Attending Clinician Unavailable Enid Levin DO Attending Clinician DR CHRISTA RADER Attending Clinic josé miguel Unavailable DR CHRISTA RADER Attending Clinic josé miguel Unavailable YEVGENIY HUANG Attending Clinician Unavail YEVGENIY Rasmussen Attending Clinician Unavail Yevgeniy Rasmussen MD Attending Clinician Doctor Unassigned, [place] Attending Clinician MARIA DEL ROSARIO Daniels Attending Clinician Gloria vailable Lab, Ang - Db Attending Clinician Unavailable Alaina SILVA, Maria Del Rosario Robles Attending Clinician VA TUBBS Attending Clinician Unavailable Avi BELTRE, Va Attending Clinician [phone] Unknown, Attending Attending Clinician Unavailab le UNKNOWN, ATTENDING Attending Clinician Unavailab NGUYEN Gillis Attending Clinician Unavailable Izabela GARCIA, Nguyen Mcguire Attending Clinician [phone] Sunitha Thomson MD Attending Clinician [phone] Shanon Bella Attending Clinician [phone] SHANON BECK Attending Clinician Unavailabl e Provider, [facility] Attending Clinician Unavailable Taylor Attending Clinician Unavailable DR KATERIN TAYLOR Admitting Clinician Unavaila DIDIER Winston Admitting Clinician Unavailable ENID LEVIN Admitting Clinician Unavailable DR CHRISTA RADER SHAHRAM Admitting Clinic josé miguel Unavailable NGUYEN RICHARDS Admitting Clinician Unavailable Taylor Admitting Clinician Unavailable Payers Payer Name Policy Type Policy Number Effective Date Expirati on Date Source [id number] 1959 00:00:00 [facility] DUAL COMP HMO D SNP [id number] 2022 00:00:00 [place] [id number] 2022 00:00:00 0579 [id number] 2023 00:00:00 [facility] GROUP - [facility] (MEDICARE REPLACEMENT/ADVANTA GE - HMO) [id number] 2020 00:00:00 [facility] - DUAL COMPLETE - DUAL ELIGIBLE - SNP (MEDICARE-MEDICAID REPLACEMENT HMO) [id number] Problems Condition Name Condition Details Condition Category Status Onset Date Resolution Date Last Treatment Date Treating Clinician Comments Source Pyelonephr itis Pyelonephr itis Disease Active 06-25 00:00: 00 [facility] Acute bilateral low back pain without sciatica Acute bilateral low back pain without sciatica Disease Active 06-25 00:00: 00 [facility] 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 01-27 00:00: 00 [facility] Anxiety Anxiety Disease Active 01-27 00:00: 00 [facility] HTN (hypertens ion) HTN (hypertens ion) Disease Active 01-27 00:00: 00 [facility] No known active problems No known active problems Disease [facility] Allergies, Adverse Reactions, Alerts Allergy Name Allergy Type Status Severity Reaction(s) Onset Date Inactive Date Treating Clinician Comments Source BENADRYL ALLERGY DECONGES TANT DRUG Active Unknown-Cmnt 2021-10 0 00:00: 00 [facility] Benadryl Allergy Deconges tant Propensi ty to adverse reaction s Active Unknown - See comments 2021-10 00:00: 00 Restlessn ess [facility] NO KNOWN ALLERGIE S Drug Class Active [facility] No Known Drug Allergie s DA Active [facility] Social History Social Habit Start Date Stop Date Quantity Comments Source History of tobacco use Cigarette Smoker [facility] intake 2023-08-28 00:00:00 2023-08-28 00:00:00 Ex-drinker (finding) [facility] Alcoholic beverage intake 2023-08-28 00:00:00 2023-08-28 00:00:00 Ex-drinker (finding) [facility] Exposure to SARS-CoV-2 (event) 2023-01-17 00:00:00 2023-01-27 13:47:00 Not sure [facility] Cigarettes smoked current (pack per day) - Reported 2023-01-27 00:00:00 2023-01-27 00:00:00 [facility] Cigarette pack-years 2023-01-27 00:00:00 2023-01-27 00:00:00 [facility] Tobacco use and exposure 2023-01-27 00:00:00 2023-01-27 00:00:00 Smokeless tobacco non-user [facility] History of Social function 2023-01-27 00:00:00 2023-01-27 00:00:00 [facility] Sex assigned at 1985 00:00:00 1985 00:00:00 [facility] Smoking Status Start Date Stop Date Source Tobacco smoking consumption unknown [facility] Ex-smoker 2023-01-27 00:00:00 2023-01-27 00:00:00 [facility] Never smoked tobacco [facility] Medications Ordered Medication Name Filled Medication Name Start Date Stop Date Current Medication? Ordering Clinician Indication Dosage Frequency Signature (SIG) Comments Components Source gadoteridol (PROHANCE-1 5 mL) injection 0.2 mL/kg 07-06 19:15: 00 07-06 19:14 :00 No [id number] .2mL/kg 0.2 mL/kg, Intravenou s, ONCE, 1 dose, On Thu07/06/24 at 1415, Routine [facility] morpHINE (4 mg/mL) injection 4 mg 06-26 03:45: 00 06-26 03:42 :00 No 4mg 4 mg, Slow IV Push, ONCE, 1 dose, On 06/25/24 at 2245, STAT [facility] cefTRIAXone (ROCEPHIN) 1,000 mg in NaCl 0.9% (NS) 100 mL MINI-BAG 06-26 03:30: 00 06-26 04:06 :00 No 1000mg 1,000 mg, IV Piggyback, ONCE, 1 dose, On 06/25/24 at 2230, Administer over 30 Minutes, 100 mL, Reason for Anti-Infec tive: Documented Infection, Documented Infection Site: Urine, Duration of Therapy: Once (ED) [facility] iopamidol (ISOVUE 370-500 mL) injection 85 mL 06-26 03:15: 00 06-26 03:15 :00 No [id number] 85mL 85 mL, Intravenou s, ONCE, 1 dose, On 06/25/24 at 2215, Routine [facility] morpHINE (4 mg/mL) injection 4 mg 06-26 01:15: 00 06-26 01:23 :00 No 4mg 4 mg, Slow IV Push, ONCE, 1 dose, On 06/25/24 at 2015, STAT [facility] acetaminoph en-codeine 300-30 mg tablet 06-25 00:00: 00 Yes [id number] 1{tbl} Take 1 tablet by mouth every 8 (eight) hours. Indication s: acute pain [facility] cefpodoxime 200 mg tablet 06-25 00:00: 00 07-06 04:59 :00 No [id number] 200mg Take 1 tablet by mouth in the morning and 1 tablet in the evening. Do all this for 10 days. [facility] buPROPion XL 300 mg 24 hr tablet 2022-10 12:07: 12 Yes 300mg Take 1 tablet by mouth every morning. [facility] butalbital- acetaminoph en-caffeine 50-325-40-3 0 mg per capsule 2022-10 12:05: 36 Yes 1{capsu le} Take 1 capsule by mouth every 6 (six) hours as needed for Headache. [facility] acetaminoph en-codeine 300-30 mg tablet 2022-10 00:00: 00 Yes 1{tbl} Take 1 tablet by mouth every 8 (eight) hours as needed (pain). [facility] busPIRone 5 mg tablet 2022-10 00:00: 00 Yes 5mg Take 1 tablet by mouth 2 (two) times daily as needed. [facility] butalbital- acetaminoph en-caffeine 50-325-40-3 0 mg per capsule 01-27 14:03: 08 Yes 1{capsu le} Take 1 capsule by mouth every 6 (six) hours as needed for Headache. [facility] zolpidem 5 mg tablet 01-27 14:03: 08 Yes 5mg Take 1 tablet by mouth at bedtime as needed for Insomnia. [facility] baclofen 5 mg tablet 01-27 00:00: 00 Yes [id number] 5mg Take 1 tablet by mouth 3 (three) times daily as needed for Other or Pain (scale 7-10) (back back, muscle spasm, or leg pain). [facility] SERTraline 25 mg tablet 01-27 00:00: 00 Yes [id number] 12.5mg Take 0.5 tablets by mouth in the morning. [facility] lisinopriL 10 mg tablet 01-27 00:00: 00 Yes [id number] 10mg Take 1 tablet by mouth in the morning. [facility] acetaminoph en-codeine 300-30 mg tablet 11-28 00:00: 00 01-27 00:00 :00 No TAKE 1 TABLET BY MOUTH TWICE DAILY NEEDED [facility] albuterol 90 mcg/actuati on inhaler 2021-10 00:00: 00 10-24 05:59 :00 No [id number] 2{puff} Inhale 2 Puffs every 6 (six) hours as needed for Wheezing or Shortness of Breath for up to 10 days. [facility] benzonatate 200 mg capsule 2021-10 00:00: 00 10-24 05:59 :00 No [id number] 200mg Take 1 capsule by mouth 3 (three) times daily as needed for Cough for up to 10 days. [facility] iopamidol (ISOVUE 370-500 mL) injection 79 mL 2021-10 21:00: 00 09-26 20:02 :00 No [id number] 79mL 79 mL, Intravenou s, ONCE, 1 dose, On Thu09/26/22 at 1500, Routine [facility] ketorolac (TORADOL) injection 30 mg 2021-10 19:45: 00 09-26 19:20 :00 No 30mg 30 mg, Slow IV Push, ONCE, 1 dose, On Thu09/26/22 at 1345, Routine [facility] ondansetron (ZOFRAN (PF)) injection 4 mg 2021-10 19:00: 00 09-26 19:20 :00 No 4mg 4 mg, Slow IV Push, ONCE, 1 dose, On Thu09/26/22 at 1300, FRANKLIN [facility] ondansetron 4 mg disintegrat ing tablet 2021-10 00:00: 00 Yes [id number] 4mg Take 1 tablet by mouth every 8 (eight) hours as needed for Nausea and Vomiting (N/V). [facility] ibuprofen 600 mg tablet 2021-10 00:00: 00 Yes [id number] 600mg Take 1 tablet by mouth every 6 (six) hours as needed for Pain (scale 4-6) or Pain (scale 1-3). [facility] cefdinir 300 mg capsule 2021-10 00:00: 00 10-04 05:59 :00 No [id number] 300mg Take 1 capsule by mouth every 12 (twelve) hours for 7 days. [facility] methylpredn isolone sod succ (SOLU-MEDRO L) injection 125 mg 2021-10 0-05 00:15: 00 07-22 23:19 :16 No [id number] 125mg [facility] methylpredn isolone sod succ (SOLU-MEDRO L) injection 125 mg 2021-10 0-05 00:15: 00 07-22 23:22 :00 No [id number] 125mg [facility] fluticasone propionate 50 mcg/actuati on nasal spray 2021-10 0 00:00: 00 Yes [id number] 1{spray } Use 1 Graham in each nostril in the morning. [facility] azelastine 137 mcg (0.1 %) nasal spray 2021-10 0 00:00: 00 Yes [id number] 1{spray } Use 1 Graham in each nostril in the morning and 1 Graham in the evening. Use in each nostril as directed [facility] cetirizine (ZYRTEC) 10 mg tablet 2021-10 0 00:00: 00 Yes [id number] 10mg Take 1 tablet by mouth in the morning. [facility] meclizine 12.5 mg tablet 9-21 00:00: 00 07-22 00:00 :00 No TAKE 1 TO 2 TABLETS BY MOUTH AT NIGHT NEEDED [facility] buPROPion XL 300 mg 24 hr tablet 9-10 00:00: 00 01-27 00:00 :00 No 300mg Take 1 tablet by mouth every morning. [facility] lisinopriL 10 mg tablet 8-28 00:00: 00 01-27 00:00 :00 No 10mg Take 1 tablet by mouth in the morning. [facility] FLUoxetine 10 mg capsule 7-21 00:00: 00 01-27 00:00 :00 No 10mg Take 1 capsule by mouth in the morning. [facility] drospirenon e-ethinyl estradioL 3-0.03 mg per tablet 7-19 00:00: 00 Yes 1{tbl} Take 1 tablet by mouth in the morning. [facility] triamcinolo ne acetonide 0.1 % cream 7-15 00:00: 00 Yes APPLY THIN LAYER TOPICALLY TO THE AFFECTED AREA EVERY 12 HOURS FOR 14 DAYS [facility] No known medications 4-17 21:06: 20 No No known medication s [facility] butalbital- acetaminoph en-caffeine 50 mg-325 mg-40 mg tablet TAKE 1 TABLET BY MOUTH TWICE DAILY NEEDED FOR HEADACHE butalbital- acetaminoph en-caffeine 50 mg-325 mg-40 mg tablet TAKE 1 TABLET BY MOUTH TWICE DAILY NEEDED FOR HEADACHE No butalbital -acetamino phen-caffe ine 50 mg-325 mg-40 mg tablet TAKE 1 TABLET BY MOUTH TWICE DAILY NEEDED FOR HEADACHE [facility] epinephrine 0.3 mg/0.3 mL injection, auto-inject or ADMINISTER 0.3 ML IN THE MUSCLE 1 TIME NEEDED FOR ANAPHYLAXIS epinephrine 0.3 mg/0.3 mL injection, auto-inject or ADMINISTER 0.3 ML IN THE MUSCLE 1 TIME NEEDED FOR ANAPHYLAXIS No epinephrin e 0.3 mg/0.3 mL injection, auto-injec tor ADMINISTER 0.3 ML IN THE MUSCLE 1 TIME NEEDED FOR ANAPHYLAXI S [facility] Lo Loestrin Fe 1 mg-10 mcg (24)/10 mcg (2) tablet Take 1 tablet every day by oral route. Lo Loestrin Fe 1 mg-10 mcg (24)/10 mcg (2) tablet Take 1 tablet every day by oral route. No 1 Q1D Lo Loestrin Fe 1 mg-10 mcg (24)/10 mcg (2) tablet Take 1 tablet every day by oral route. [facility] Aurovela Fe 1-20 (28) 1 mg-20 mcg (21)/75 mg (7) tablet TAKE 1 TABLET BY MOUTH EVERY DAY Aurovela Fe 1-20 (28) 1 mg-20 mcg (21)/75 mg (7) tablet TAKE 1 TABLET BY MOUTH EVERY DAY No Aurovela Fe 1-20 (28) 1 mg-20 mcg (21)/75 mg (7) tablet TAKE 1 TABLET BY MOUTH EVERY DAY [facility] Vital Signs Vital Name Observation Time Observation Value Comments S ource Height 2023-09-30 07:40:00 149.86 CM Weight 2023-09-30 07:40:00 61 KG Systolic blood pressure 2024-06-26 03:00:00 125 mm[Hg] [facility] Diastolic blood pressure 2024-06-26 03:00:00 68 mm[Hg] [facility] Heart rate 2024-06-26 03:00:00 63 /min [facility] Oxygen saturation in Arterial blood by Pulse oximetry 2024-06-26 03:00:00 97 /min [facility] Body temperature 2024-06-26 00:55:00 37 Patti [facility] Respiratory rate 2024-06-26 00:55:00 18 /min [facility] Body height 2024-06-26 00:55:00 149.9 cm [facility] Body weight 2024-06-26 00:55:00 58.514 kg [facility] BMI 2024-06-26 00:55:00 26.05 kg/m2 [facility] Height 2023-10-07 07:11:00 152.4 CM Weight 2023-10-07 07:11:00 62.59 KG Height 2023-09-30 07:40:00 149.86 CM Weight 2023-09-30 07:40:00 61 KG Systolic blood pressure 2023-08-28 18:08:00 111 mm[Hg] [facility] Diastolic blood pressure 2023-08-28 18:08:00 77 mm[Hg] [facility] Heart rate 2023-08-28 18:04:00 87 /min [facility] Respiratory rate 2023-08-28 18:04:00 18 /min [facility] Body height 2023-08-28 18:04:00 149.9 cm [facility] 2023-08-28 18:04:00 62.687 kg [facility] BMI 2023-08-28 18:04:00 27.91 kg/m2 [facility] Oxygen saturation in Arterial blood by Pulse oximetry 2023-08-28 18:04:00 98 /min [facility] Systolic blood pressure 2023-01-27 18:49:00 124 mm[Hg] [facility] Diastolic blood pressure 2023-01-27 18:49:00 67 mm[Hg] [facility] Heart rate 2023-01-27 18:49:00 63 /min [facility] Body temperature 2023-01-27 18:49:00 36.39 Patti [facility] Respiratory rate 2023-01-27 18:49:00 16 /min [facility] Body height 2023-01-27 18:49:00 152 cm [facility] weight 2023-01-27 18:49:00 67.314 kg [facility] BMI 2023-01-27 18:49:00 29.13 kg/m2 [facility] Oxygen saturation in Arterial blood by Pulse oximetry 2023-01-27 18:49:00 100 /min [facility] Systolic blood pressure 2022-10-13 19:03:00 125 mm[Hg] [facility] Diastolic blood pressure 2022-10-13 19:03:00 79 mm[Hg] [facility] Heart rate 2022-10-13 19:03:00 126 /min [facility] Body temperature 2022-10-13 19:03:00 37.94 Patti [facility] Respiratory rate 2022-10-13 19:03:00 18 /min [facility] Oxygen saturation in Arterial blood by Pulse oximetry 2022-10-13 19:03:00 98 /min [facility] Systolic blood pressure 2022-09-26 21:00:00 124 mm[Hg] [facility] Diastolic blood pressure 2022-09-26 21:00:00 79 mm[Hg] [facility] Heart rate 2022-09-26 21:00:00 66 /min [facility] Respiratory rate 2022-09-26 21:00:00 18 /min [facility] Oxygen saturation in Arterial blood by Pulse oximetry 2022-09-26 21:00:00 98 /min [facility] Body temperature 2022-09-26 18:33:00 36.89 Patti [facility] Body height 2022-09-26 18:33:00 152.4 cm [facility] Body weight 2022-09-26 18:33:00 58.968 kg [facility] BMI 2022-09-26 18:33:00 25.39 kg/m2 [facility] Systolic blood pressure 2022-07-22 23:08:00 142 mm[Hg] [facility] Diastolic blood pressure 2022-07-22 23:08:00 81 mm[Hg] [facility] Heart rate 2022-07-22 23:08:00 67 /min [facility] Body temperature 2022-07-22 23:08:00 36.72 Patti [facility] Respiratory rate 2022-07-22 23:08:00 16 /min [facility] Body height 2022-07-22 23:08:00 152.4 cm [facility] Body weight 2022-07-22 23:08:00 58.968 kg [facility] BMI 2022-07-22 23:08:00 25.39 kg/m2 [facility] Oxygen saturation in Arterial blood by Pulse oximetry 2022-07-22 23:08:00 98 /min [facility] BP Diastolic 2021-09-03 00:00:00 96 mm[Hg] [facility] Height 2021-09-03 00:00:00 60 [in_i] [facility] BMI (Body Mass Index) 2021-09-03 00:00:00 28.3 kg/m2 [facility] BP Systolic 2021-09-03 00:00:00 146 mm[Hg] [facility] Body Weight 2021-09-03 00:00:00 144.8 [lb_av] [facility] Procedures Procedure Date / Time Performed Performing Clinician Source MR HIP LEFT W WO CONTRAST 2024-07-06 19:11:36 Requisition, Paper [facility] CT ABDOMEN PELVIS W CONTRAST 2024-06-26 02:28:44 Sujit Ugalde [facility] COMP. METABOLIC PANEL (70976) 2024-06-26 02:08:00 Enid Levin [facility] LIPASE 2024-06-26 01:22:00 Enid Levin [facility] CBC WITH DIFF 2024-06-26 01:22:00 Sujit Ugalde [facility] URINALYSIS 2024-06-26 01:21:00 Sujit Ugalde [facility] POCT TEST 2024-06-26 01:21:00 Don Ugalde [facility] SORIANO NAUTO RED BLD CLL PERIPH VN PC 2023-10-09 00:00:00 [facility] FUSION LV JOINT AUTO SUB POST PC OP 2023-10-07 00:00:00 [facility] FUSION LS JOINT AUTO SUB POST PC OP 2023-10-07 00:00:00 [facility] EXCISION LEFT PELVIC BONE OPEN APPR 2023-10-07 00:00:00 [facility] RELEASE LUMBAR NERVE OPEN APPROACH 2023-10-07 00:00:00 [facility] MONITOR PERIP NERV ELEC INTRAOP EXT 2023-10-07 00:00:00 [facility] FUSION LV JOINT IF ANT APPR AC OPEN 2023-09-30 00:00:00 [facility] FUSION LS JOINT IF ANT APPR AC OPEN 2023-09-30 00:00:00 [facility] RESECT LUMBAR VERTEBRAL DISC OPEN 2023-09-30 00:00:00 [facility] RESECTION LUMBOSACRAL DISC OPEN 2023-09-30 00:00:00 [facility] MONITOR PERIP NERV ELEC INTRAOP EXT 2023-09-30 00:00:00 [facility] REFERRAL- REQUEST/RESPONSE 2023-08-27 06:01:00 Doctor Unassigned, [place] [facility] XR CHEST 2 2022-10-13 19:43:25 Va Tubbs [facility] XR CHEST 1 2022-09-26 20:11:37 Nguyen Richards [facility] CT ABDOMEN PELVIS W CONTRAST 2022-09-26 20:09:59 Nguyen Richards [facility] URINALYSIS 2022-09-26 19:53:00 Nguyen Richards [facility] POCT TEST 2022-09-26 19:51:00 Nguyen Richards [facility] LIPASE 2022-09-26 19:18:00 Nguyen Richards [facility] TROPONIN I 2022-09-26 19:18:00 Nguyen Richards [facility] COMP. METABOLIC PANEL ([id number]) 2022-09-26 19:18:00 Nguyen Richards [facility] CBC WITH DIFF 2022-09-26 19:18:00 Nguyen Richards [facility] CONSENT/REFUSAL FOR DIAGNOSIS AND TREATMENT 2022-09-26 18:26:28 Doctor Unassigned, [place] [facility] ASSIGNMENT OF BENEFITS 2022-07-22 23:01:50 Docto r Unassigned, [place] [facility] Plan of Care Planned Activity Planned Date Details Comments Source Diagnostic Test Pending 2021-09-03 00:00:00 culture, urine [code = culture, urine] [facility] Diagnostic Test Pending 2021-09-03 00:00:00 urinalysis, dipstick [code = urinalysis, dipstick] [facility] Diagnostic Test Pending 2021-09-03 00:00:00 test, urine [code = test, urine] [facility] Encounters Start Date/Time End Date/Time Encounter Type Admission Type Attending [facility] Care Department Encounter ID Source 2023-09-30 14:40:00 Inpatient KATERIN CARRANZA [facility] [id number] [facility] 2024-07-07 08:00:00 2024-07-07 08:00:00 Outpatient R RADIOLOGY [facility] [id number] [facility] 2024-07-06 11:50:20 2024-07-06 23:59:00 Outpatient R RADIOLOGY [facility] [id number] [facility] 2024-07-06 11:50:20 2024-07-06 23:59:00 Hospital Encounter Radiology Radiology [facility] [id number] [id number] [facility] 2024-06-25 19:57:00 2024-06-25 23:29:00 Emergency X ENID LEVIN MATTHEW [facility] ERT [id number] [facility] 2024-06-25 19:57:00 2024-06-25 23:29:00 Emergency Enid Levin [facility] [id number] [id number] [facility] 2023-10-07 14:01:00 2023-10-10 20:30:00 Inpatient CHRISTA GELLER MUHAMMAD NAUMAN [facility] [id number] [facility] 2023-10-07 06:15:00 2023-10-07 06:15:00 Outpatient C KATERIN TAYLOR [facility] [id number] [facility] 2023-09-30 14:50:00 2023-10-02 14:30:00 Inpatient C CHRISTA RADER MUHAMMAD [facility] [id number] [facility] 2023-08-28 12:40:00 2023-08-28 12:50:05 Outpatient YEVGENIY WOODALL HOWARD [facility] [id number] [facility] 2023-08-28 12:40:00 2023-08-28 12:50:05 [facility] [id number] [id number] [facility] 2023-08-28 00:00:00 2023-08-28 00:00:00 Telephone [facility]evgeniy Huang [facility] 1..840.114 350.1.13.10 [id number] [id number] [facility] 2023-08-27 00:00:00 2023-08-27 00:00:00 Orders Only Doctor Unassigned, [place] [facility] 1..840.114 350.1.13.10 [id number] [id number] [facility] 2023-02-10 13:45:00 2023-02-10 13:45:00 Outpatient MARIA DEL ROSARIO [facility] [id number] [facility] 2023-01-27 14:30:00 2023-01-27 14:51:30 Taping Foreman Visit Lab, Maria Del Rosario [facility] [id number] 350.1.13.10 [id number] [facility] 2023-01-27 14:00:00 2023-01-27 14:37:11 Outpatient R ALAINA MARIA DEL ROSARIO [facility] [id number] [facility] 2023-01-27 14:00:00 2023-01-27 14:37:11 Office Visit Alaina Maria Del Rosario [facility] [id number] 350.1.13.10 [id number] [facility] 2022-10-13 13:12:25 2022-10-13 23:59:00 Outpatient R JOSE TUBBSAnnmarieHome [facility] [id number] [facility] 2022-10-13 13:12:25 2022-10-13 23:59:00 Hospital Encounter Va Tubbs [facility] [facility] 1.2.840.114 350.1.13.10 4.2.7.2.686 [id number] [facility] 2022-10-13 13:00:00 2022-10-13 13:20:00 Urgent Care [facility] Unknown, Attending [facility] 1.2.840.114 350.1.13.10 4.2.7.2.686 [id number] [facility] 2022-10-13 13:00:00 2022-10-13 13:00:00 Outpatient R UNKNOWN, ATTENDING [facility] [id number] [facility] 2022-09-26 12:34:00 2022-09-26 16:05:00 Emergency X NGUYEN RICHARDS [facility] ERT [id number] [facility] 2022-09-26 12:34:00 2022-09-26 16:05:00 Emergency Nguyen Richards [facility] 1.2.840.114 350.1.13.10 4.2.7.2.686 [id number] [facility] 2022-07-22 18:00:00 2022-07-22 18:20:54 [facility] 1.2.840.114 350.1.13.10 4.2.7.2.686 [id number] [facility] 2022-07-22 18:00:00 2022-07-22 18:20:54 Outpatient Bonita KIRAN, [facility] [id number] [facility] 2022-07-22 00:00:00 2022-07-22 00:00:00 Orders Only Doctor Unassigned, [place] [facility] 1.2.840.114 350.1.13.10 4.2.7.2.686 [id number] [facility] 2022-07-22 00:00:00 2022-07-22 00:00:00 Letter (Out) Provider, Parveen [facility] 1.2.840.114 350.1.13.10 4.2.7.2.686 [id number] [facility] 2021-09-05 08:33:00 2021-09-05 08:33:00 Outpatient [facility] [id number] 2021-09-03 00:00:00 2021-09-03 00:00:00 PATT Mcbride-BC: [address] [facility] [facility] [address], [place] [address] , Ph. [phone] [facility] [id number] [facility] 2021-08-28 02:05:00 2021-08-28 02:05:00 Outpatient White_M [facility] [id number] [facility] Results Test Description Test Time Test Comments Results Result Comments Source MR HIP LEFT W WO CONTRAST 20:27:27 EXAM: MRI LEFT HIP WITH AND WITHOUT IV CONTRAST HISTORY: None provided COMPARISON: Plain films dated June 2013 TECHNIQUE AND FINDINGS: Multiplanar multiweighted MR imaging of the left hip was performed withutilization of 11 cc IV ProHance. BONE AND JOINT: Susceptibility artifact is present at the bilateral proximal left and rightfemur slightly limiting evaluation of the regional soft tissues. A bonegraft defect with adjacent T2 signal increase with enhancement is partiallyprofiled along the left ilium adjacent to the left SI joint. Overlyingsubcutaneous T2 signal increase with enhancement is seen along with mild Q4ckrvah increase within the left paraspinal musculature. There is partialvisualization of a medullary based hypointense T1 and intermediate T4lygcim lesion within the proximal right femur extending through theintertrochanteric line measuring approximately 3.3 cm in long axis. Lessextensive signal alteration is partially profiled within the proximal leftfemoral bone marrow abutting the proximal femoral fixation hardware.Metallic fixation hardware is partially profiled at the lumbosacraljunction. No effusion is seen at the left hip. No chondral defect or labraldetachment is identified. LIGAMENTS /TENDONS/SOFT TISSUES:The iliopsoas, ischial and trochanteric bursa are unremarkable. Slightasymmetric atrophy of the right piriformis muscle belly is incidentallynoted. The ischiofemoral interval is unremarkable. The femoralneurovascular bundle and sciatic nerve are unremarkable. The hip flexors,extensors, external rotators and adductors are within normal limits. [facility] CT ABDOMEN PELVIS W CONTRAST 03:24:13 Ordering physician: ENID LEVIN Indication: Acute abdominal pain, history of abdominal surgery with backpain COMPARISON: CT of the abdomen and pelvis dated 09/26/2022 TECHNIQUE: Axial images of the abdomen and pelvis are performed followingadministration of intravenous contrast material. Images were reformatted inthe coronal and sagittal plane. CT scan was performed according to ALARA(as low as reasonably achievable) policy. FINDINGS: The lung bases are clear. The liver, gallbladder, spleen, adrenalglands and pancreas are within normal limits. The kidneys are normal inappearance bilaterally without hydronephrosis. No abdominal aortic aneurysmor dissection is appreciated. The stomach is mildly distended with food. There is no free fluid in the pelvis. There is a dominant follicle in theright ovary measuring 19 mm (series 2, image 106). There is no bowelobstruction, widespread diverticulosis or acute diverticulitis. Theappendix is identified and within normal limits. ?Bone windows through theabdomen and pelvis demonstrate no osseous destructive lesion. The patientis status post prior 360 degree fusion of L4-S1. 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 The interbody discspacer at L5-S1 appears to project into the caudal aspect of the vertebralbody (series 4, image 60; series 6, image 61). [facility] [id number] 01:21:00* Test Item Value Reference Range Interpretation Comme nts POCT PREG (test code = 1605) Negative On board controls acceptable with C Line (test code = 3574) Yes POCT PREG LOT # (test code = 3575) [id number] POCT PREG TEST DATE ( test code = 3576) 2025-02-25 Lab Interpretation (test cod e = 71137-7) [id number] 06:44:00* Test Item Value Reference Range Interpretation Comme nts Culture Observations (test code = COB1) NO GROWTH AFTER 5 DAYS COMPREHENSIVE METABOLIC [id number] 09:59:00* Test Item Value Reference Range Interpretation Comme nts GLUCOSE (test code = 06D) 107 mg/dL 75-100 H SODIUM (test code = 01A) 136 mmol/L 136-145 POTASSIUM (test code = 01B) 3.8 mmol/L 3.6-5.1 CHLORIDE (test code = 04A) 105 mmol/L 98-107 CO2 (test code = 02A) 27 mmol/L 20-31 ANION GAP (test code = ANG) 7.8 mmol/L BUN (test code = 05D) 10 mg/dL 9-23 CREATININE (test code = 03E) 0.5 mg/dL 0.6-1.0 L GFR (test code = GFR) 122 mL/min/1.73m\\S\\2 >=90 EGFR (test code = EGFR) eGFR BY CKD-EPI CALCULATION IS NOT RECOMMENDED FOR PATIENTS UNDER 18 YEARS OF AGE. BUN/CREA (test code = BCR) 20 12-20 CALCIUM (test code = 09D) 8.2 mg/dL 8.3-10.6 L BILI TOTAL (test code = 11A) 0.5 mg/dL 0.2-1.0 PROTEIN (test code = 07D) 5.9 g/dL 5.7-8.2 ALBUMIN (test code = 08D) 3.8 g/dL 3.2-4.8 GLOBULIN (test code = GLB) 2.1 g/dL 1.5-3.8 ALB/GLOB (test code = AGRR) 1.8 1.0-2.6 ALK PHOS (test code = 35A) 101 IU/L 46-116 AST (test code = 30A) 56 IU/L <=33 H ALT (test code = 31A) 41 IU/L 10-49 [id number] 09:59:00* Test Item Value Reference Range Interpretation Comme nts MAGNESIUM (test code = 48A) 2.2 mg/dL 1.6-2.6 CBC (INCLUDES AUTOMATED DIFFERENTIAL)2023-10-09 09:53:00* Test Item Value Reference Range Interpretation Comme nts WBC (test code = WBC) 13.3 10\\S\\3/uL 4.5-11.0 H RBC (test code = RBC) 2.72 10\\S\\6/uL 4.30-5.70 L HGB (test code = HBG) 7.5 g/dL 12.0-15.5 L HCT (test code = HCT) 23.4 % 35.0-44.0 LL MCV (test code = MCV) 86.0 fL 81.0-99.0 MCH (test code = MCH) 27.6 pg 27.0-31.0 MCHC (test code = MCHC) 32.1 g/dL 32.0-36.0 RDW (test code = RDW) 14.9 % 11.5-14.5 H PLT (test code = PLT) 421 10\\S\\3/uL 130-400 H MPV (test code = MPV) 8.7 fL 9.4-12.4 L NEUTROP # (test code = NE#) 9.0 10\\S\\3/uL 1.6-8.0 H LYMPH # (test code = LY#) 2.6 10\\S\\3/uL 1.1-3.5 MONOCYTE # (test code = MO#) 1.3 10\\S\\3/uL 0.0-1.1 H EOSINOPH # (test code = EO#) 0.2 10\\S\\3/uL 0.0-0.7 BASOPHIL # (test code = BA#) 0.1 10\\S\\3/uL 0.0-0.3 IG # (test code = IG#) 0.11 10\\S\\3/uL 0.00-0.06 H NRBC # (test code = NRBC#) 0.00 10\\S\\3/uL 0.00-0.01 NEUTROPH % (test code = NE%) 67.8 % 35.0-73.0 LYMPH % (test code = LY%) 19.5 % 20.0-55.0 L MONO % (test code = MO%) 9.7 % 2.5-10.0 EOSINOPH % (test code = EO%) 1.7 % 0.0-5.0 BASOPHIL % (test code = BA%) 0.5 % 0.0-2.0 IG % (test code = IG%) 0.8 % 0.0-0.8 NRBC% (test code = NRBC%) 0.0 % 0.0-0.2 MANDIFF (test code = MDIFF) NO RBC MORPH (test code = RBCMOR) NORMAL BASIC METABOLIC [id number] 06:57:00* Test Item Value Reference Range Interpretation Comme nts GLUCOSE (test code = 06D) 107 mg/dL 75-100 H SODIUM (test code = 01A) 139 mmol/L 136-145 POTASSIUM (test code = 01B) 3.5 mmol/L 3.6-5.1 L CHLORIDE (test code = 04A) 105 mmol/L 98-107 CO2 (test code = 02A) 24 mmol/L 20-31 ANION GAP (test code = ANG) 13.5 mmol/L BUN (test code = 05D) 14 mg/dL 9-23 CREATININE (test code = 03E) 0.6 mg/dL 0.6-1.0 GFR (test code = GFR) 117 mL/min/1.73m\\S\\2 >=90 EGFR (test code = EGFR) eGFR BY CKD-EPI CALCULATION IS NOT RECOMMENDED FOR PATIENTS UNDER 18 YEARS OF AGE. BUN/CREA (test code = BCR) 23 12-20 H CALCIUM (test code = 09D) 8.4 mg/dL 8.3-10.6 CBC (INCLUDES AUTOMATED DIFFERENTIAL)2023-10-08 06:32:00* Test Item Value Reference Range Interpretation Comme nts WBC (test code = WBC) 16.1 10\\S\\3/uL 4.5-11.0 H RBC (test code = RBC) 2.98 10\\S\\6/uL 4.30-5.70 L HGB (test code = HBG) 8.1 g/dL 12.0-15.5 L HCT (test code = HCT) 26.1 % 35.0-44.0 L MCV (test code = MCV) 87.6 fL 81.0-99.0 MCH (test code = MCH) 27.2 pg 27.0-31.0 MCHC (test code = MCHC) 31.0 g/dL 32.0-36.0 L RDW (test code = RDW) 14.7 % 11.5-14.5 H PLT (test code = PLT) 454 10\\S\\3/uL 130-400 H MPV (test code = MPV) 9.3 fL 9.4-12.4 L NEUTROP # (test code = NE#) 11.2 10\\S\\3/uL 1.6-8.0 H LYMPH # (test code = LY#) 3.1 10\\S\\3/uL 1.1-3.5 MONOCYTE # (test code = MO#) 1.7 10\\S\\3/uL 0.0-1.1 H EOSINOPH # (test code = EO#) 0.0 10\\S\\3/uL 0.0-0.7 BASOPHIL # (test code = BA#) 0.0 10\\S\\3/uL 0.0-0.3 IG # (test code = IG#) 0.13 10\\S\\3/uL 0.00-0.06 H NRBC # (test code = NRBC#) 0.00 10\\S\\3/uL 0.00-0.01 NEUTROPH % (test code = NE%) 69.6 % 35.0-73.0 LYMPH % (test code = LY%) 19.0 % 20.0-55.0 L MONO % (test code = MO%) 10.3 % 2.5-10.0 H EOSINOPH % (test code = EO%) 0.2 % 0.0-5.0 BASOPHIL % (test code = BA%) 0.1 % 0.0-2.0 IG % (test code = IG%) 0.8 % 0.0-0.8 NRBC% (test code = NRBC%) 0.0 % 0.0-0.2 MANDIFF (test code = MDIFF) NO RBC MORPH (test code = RBCMOR) NORMAL CBC (INCLUDES AUTOMATED DIFFERENTIAL)2023-10-07 08:50:00* Test Item Value Reference Range Interpretation Comme nts WBC (test code = WBC) 15.2 10\\S\\3/uL 4.5-11.0 H RBC (test code = RBC) 4.07 10\\S\\6/uL 4.30-5.70 L HGB (test code = HBG) 11.2 g/dL 12.0-15.5 L HCT (test code = HCT) 34.8 % 35.0-44.0 L MCV (test code = MCV) 85.5 fL 81.0-99.0 MCH (test code = MCH) 27.5 pg 27.0-31.0 MCHC (test code = MCHC) 32.2 g/dL 32.0-36.0 RDW (test code = RDW) 14.4 % 11.5-14.5 PLT (test code = PLT) 536 10\\S\\3/uL 130-400 H MPV (test code = MPV) 9.1 fL 9.4-12.4 L NEUTROP # (test code = NE#) 12.6 10\\S\\3/uL 1.6-8.0 H LYMPH # (test code = LY#) 1.7 10\\S\\3/uL 1.1-3.5 MONOCYTE # (test code = MO#) 0.8 10\\S\\3/uL 0.0-1.1 EOSINOPH # (test code = EO#) 0.0 10\\S\\3/uL 0.0-0.7 BASOPHIL # (test code = BA#) 0.1 10\\S\\3/uL 0.0-0.3 IG # (test code = IG#) 0.09 10\\S\\3/uL 0.00-0.06 H NRBC # (test code = NRBC#) 0.00 10\\S\\3/uL 0.00-0.01 NEUTROPH % (test code = NE%) 82.5 % 35.0-73.0 H LYMPH % (test code = LY%) 11.3 % 20.0-55.0 L MONO % (test code = MO%) 4.9 % 2.5-10.0 EOSINOPH % (test code = EO%) 0.3 % 0.0-5.0 BASOPHIL % (test code = BA%) 0.4 % 0.0-2.0 IG % (test code = IG%) 0.6 % 0.0-0.8 NRBC% (test code = NRBC%) 0.0 % 0.0-0.2 MANDIFF (test code = MDIFF) NO RBC MORPH (test code = RBCMOR) NORMAL CBC WITH MANUAL [id number] 09:06:00* Test Item Value Reference Range Interpretation Comme nts WBC (test code = WBC) 13.6 10\\S\\3/uL 4.5-11.0 H RBC (test code = RBC) 3.85 10\\S\\6/uL 4.30-5.70 L HGB (test code = HBG) 10.2 g/dL 12.0-15.5 L HCT (test code = HCT) 32.4 % 35.0-44.0 L MCV (test code = MCV) 84.2 fL 81.0-99.0 MCH (test code = MCH) 26.5 pg 27.0-31.0 L MCHC (test code = MCHC) 31.5 g/dL 32.0-36.0 L RDW (test code = RDW) 14.0 % 11.5-14.5 PLT (test code = PLT) 318 10\\S\\3/uL 130-400 MPV (test code = MPV) 10.1 fL 9.4-12.4 NEUTROP # (test code = NE#) 8.9 10\\S\\3/uL 1.6-8.0 H LYMPH # (test code = LY#) 3.5 10\\S\\3/uL 1.1-3.5 MONOCYTE # (test code = MO#) 1.1 10\\S\\3/uL 0.0-1.1 EOSINOPH # (test code = EO#) 0.1 10\\S\\3/uL 0.0-0.7 BASOPHIL # (test code = BA#) 0.1 10\\S\\3/uL 0.0-0.3 IG # (test code = IG#) 0.06 10\\S\\3/uL 0.00-0.06 NRBC # (test code = NRBC#) 0.00 10\\S\\3/uL 0.00-0.01 NEUTROPH % (test code = NE%) 65.1 % 35.0-73.0 LYMPH % (test code = LY%) 25.7 % 20.0-55.0 MONO % (test code = MO%) 7.8 % 2.5-10.0 EOSINOPH % (test code = EO%) 0.6 % 0.0-5.0 BASOPHIL % (test code = BA%) 0.4 % 0.0-2.0 IG % (test code = IG%) 0.4 % 0.0-0.8 NRBC% (test code = NRBC%) 0.0 % 0.0-0.2 MAN DIFF (test code = HMDIFF) MANUAL DIFFERENTIAL SEG (test code = SEG) 55 % 42-75 BAND (test code = BAND) 0 % 0-8 LYMPH (test code = LYMPH) 35 % 20-51 MONO (test code = MONO) 8 % 3-11 EOS (test code = EOS) 2 % 0-10 BASO (test code = BASO) 0 % 0-2 RBC MORPH (test code = RBCMORN) NORMAL NORMAL PLT EST (test code = PLTEST) ADEQUATE ADEQUATE PLT MORPH (test code = PLTMOR) NORMAL (1.5-3 um) NORMAL COMPREHENSIVE METABOLIC [id number] 03:53:00* Test Item Value Reference Range Interpretation Comme nts GLUCOSE (test code = 06D) 103 mg/dL 75-100 H SODIUM (test code = 01A) 138 mmol/L 136-145 POTASSIUM (test code = 01B) 3.8 mmol/L 3.6-5.1 CHLORIDE (test code = 04A) 109 mmol/L 98-107 H CO2 (test code = 02A) 23 mmol/L 20-31 ANION GAP (test code = ANG) 10.3 mmol/L BUN (test code = 05D) 10 mg/dL 9-23 CREATININE (test code = 03E) 0.6 mg/dL 0.6-1.0 GFR (test code = GFR) 116 mL/min/1.73m\\S\\2 >=90 EGFR (test code = EGFR) eGFR BY CKD-EPI CALCULATION IS NOT RECOMMENDED FOR PATIENTS UNDER 18 YEARS OF AGE. GFR COMMENT (test code = GFRC) * Effective immediately, GFR will be reported based on gender only* BUN/CREA (test code = BCR) 16 12-20 CALCIUM (test code = 09D) 8.1 mg/dL 8.3-10.6 L BILI TOTAL (test code = 11A) 0.4 mg/dL 0.2-1.0 PROTEIN (test code = 07D) 6.1 g/dL 5.7-8.2 ALBUMIN (test code = 08D) 3.9 g/dL 3.2-4.8 GLOBULIN (test code = GLB) 2.2 g/dL 1.5-3.8 ALB/GLOB (test code = AGRR) 1.8 1.0-2.6 ALK PHOS (test code = 35A) 78 IU/L 46-116 AST (test code = 30A) 23 IU/L <=33 ALT (test code = 31A) 17 IU/L 10-49 HEPATITIS B CORE IgM [id number] 11:20:00* Test Item Value Reference Range Interpretation Comme nts HEPATITIS B CORE ANTIBODY (IGM) (test code = 44022304) NON-REACTIVE NON-REACTIVE For additional information, please refer [email or web address] [email or web address]/fa q/[email or web address](This link is being provided for informational/educati onal purposes only.)TEST PERFORMED AT:[facility] [address] [id number] SHETH MD,PHD. HEPATITIS A IGM [id number] 11:18:00* Test Item Value Reference Range Interpretation Comme nts HEPATITIS A IGM (test code = 04496598) NON-REACTIVE NON-REACTIVE For additional information, please refer [email or web address]/fa q/GEV534(This link is being provided for informational/educati onal purposes only.)TEST PERFORMED AT:[facility] [address] [id number] SHETH MD,PHD. CBC WITH MANUAL [id number] 10:42:00* Test Item Value Reference Range Interpretation Comme nts WBC (test code = WBC) 18.4 10\\S\\3/uL 4.5-11.0 H RBC (test code = RBC) 4.39 10\\S\\6/uL 4.30-5.70 HGB (test code = HBG) 11.8 g/dL 12.0-15.5 L HCT (test code = HCT) 37.4 % 35.0-44.0 MCV (test code = MCV) 85.2 fL 81.0-99.0 MCH (test code = MCH) 26.9 pg 27.0-31.0 L MCHC (test code = MCHC) 31.6 g/dL 32.0-36.0 L RDW (test code = RDW) 13.6 % 11.5-14.5 PLT (test code = PLT) 354 10\\S\\3/uL 130-400 MPV (test code = MPV) 10.4 fL 9.4-12.4 NEUTROP # (test code = NE#) 16.0 10\\S\\3/uL 1.6-8.0 H LYMPH # (test code = LY#) 1.0 10\\S\\3/uL 1.1-3.5 L MONOCYTE # (test code = MO#) 1.2 10\\S\\3/uL 0.0-1.1 H EOSINOPH # (test code = EO#) 0.0 10\\S\\3/uL 0.0-0.7 BASOPHIL # (test code = BA#) 0.0 10\\S\\3/uL 0.0-0.3 IG # (test code = IG#) 0.11 10\\S\\3/uL 0.00-0.06 H NRBC # (test code = NRBC#) 0.00 10\\S\\3/uL 0.00-0.01 NEUTROPH % (test code = NE%) 87.3 % 35.0-73.0 H LYMPH % (test code = LY%) 5.4 % 20.0-55.0 L MONO % (test code = MO%) 6.6 % 2.5-10.0 EOSINOPH % (test code = EO%) 0.0 % 0.0-5.0 BASOPHIL % (test code = BA%) 0.1 % 0.0-2.0 IG % (test code = IG%) 0.6 % 0.0-0.8 NRBC% (test code = NRBC%) 0.0 % 0.0-0.2 MAN DIFF (test code = HMDIFF) MANUAL DIFFERENTIAL SEG (test code = SEG) 85 % 42-75 H BAND (test code = BAND) 3 % 0-8 LYMPH (test code = LYMPH) 5 % 20-51 L MONO (test code = MONO) 7 % 3-11 EOS (test code = EOS) 0 % 0-10 BASO (test code = BASO) 0 % 0-2 RBC MORPH (test code = RBCMORN) NORMAL NORMAL PLT EST (test code = PLTEST) ADEQUATE ADEQUATE PLT MORPH (test code = PLTMOR) NORMAL (1.5-3 um) NORMAL COMPREHENSIVE METABOLIC [id number] 04:28:00* Test Item Value Reference Range Interpretation Comme nts GLUCOSE (test code = 06D) 138 mg/dL 75-100 H SODIUM (test code = 01A) 136 mmol/L 136-145 POTASSIUM (test code = 01B) 4.6 mmol/L 3.6-5.1 CHLORIDE (test code = 04A) 107 mmol/L 98-107 CO2 (test code = 02A) 20 mmol/L 20-31 ANION GAP (test code = ANG) 13.3 mmol/L BUN (test code = 05D) 7 mg/dL 9-23 L CREATININE (test code = 03E) 0.9 mg/dL 0.6-1.0 GFR (test code = GFR) 89 mL/min/1.73m\\S\\2 >=90 L EGFR (test code = EGFR) eGFR BY CKD-EPI CALCULATION IS NOT RECOMMENDED FOR PATIENTS UNDER 18 YEARS OF AGE. GFR COMMENT (test code = GFRC) * Effective immediately, GFR will be reported based on gender only* BUN/CREA (test code = BCR) 8 12-20 L CALCIUM (test code = 09D) 8.4 mg/dL 8.3-10.6 BILI TOTAL (test code = 11A) 0.4 mg/dL 0.2-1.0 PROTEIN (test code = 07D) 6.6 g/dL 5.7-8.2 ALBUMIN (test code = 08D) 4.2 g/dL 3.2-4.8 GLOBULIN (test code = GLB) 2.4 g/dL 1.5-3.8 ALB/GLOB (test code = AGRR) 1.8 1.0-2.6 ALK PHOS (test code = 35A) 78 IU/L 46-116 AST (test code = 30A) 22 IU/L <=33 ALT (test code = 31A) 29 IU/L 10-49 [id number] 12:00:00* Test Item Value Reference Range Interpretation Comme nts HIV-1,2 Ab \\T\\ p24 Ag (test code = CHIV) NON-REACTIVE NON-REACTIVE HEPATITIS C [id number] 11:52:00* Test Item Value Reference Range Interpretation Comme nts HCAB (test code = HCAB) NON-REACTIVE NON-REACTIVE HEPATITIS B SURFACE [id number] 11:29:00* Test Item Value Reference Range Interpretation Comme nts HBSAG (test code = HBSAG) NON-REACTIVE NON-REACTIVE LIPID [id number] 11:08:00* Test Item Value Reference Range Interpretation Comme nts CHOLESTROL (test code = 44A) 206 mg/dL <=199 H TRIGLYCERI (test code = 42B) 138 mg/dL <=149 HDL (test code = 83D) 45.7 mg/dL 40.0-60.0 LDL (test code = 34B) 152 mg/dL <=99 H CHL/HDL (test code = CHR) 4.5 0.0-3.4 H COMPREHENSIVE METABOLIC [id number] 11:08:00* Test Item Value Reference Range Interpretation Comme nts GLUCOSE (test code = 06D) 93 mg/dL 75-100 SODIUM (test code = 01A) 137 mmol/L 136-145 POTASSIUM (test code = 01B) 4.1 mmol/L 3.6-5.1 CHLORIDE (test code = 04A) 105 mmol/L 98-107 CO2 (test code = 02A) 21 mmol/L 20-31 ANION GAP (test code = ANG) 15.1 mmol/L BUN (test code = 05D) 12 mg/dL 9-23 CREATININE (test code = 03E) 0.8 mg/dL 0.6-1.0 GFR (test code = GFR) 96 mL/min/1.73m\\S\\2 >=90 EGFR (test code = EGFR) eGFR BY CKD-EPI CALCULATION IS NOT RECOMMENDED FOR PATIENTS UNDER 18 YEARS OF AGE. GFR COMMENT (test code = GFRC) * Effective immediately, GFR will be reported based on gender only* BUN/CREA (test code = BCR) 15 12-20 CALCIUM (test code = 09D) 9.0 mg/dL 8.3-10.6 BILI TOTAL (test code = 11A) 0.4 mg/dL 0.2-1.0 PROTEIN (test code = 07D) 7.9 g/dL 5.7-8.2 ALBUMIN (test code = 08D) 4.9 g/dL 3.2-4.8 H GLOBULIN (test code = GLB) 3.0 g/dL 1.5-3.8 ALB/GLOB (test code = AGRR) 1.6 1.0-2.6 ALK PHOS (test code = 35A) 98 IU/L 46-116 AST (test code = 30A) 20 IU/L <=33 ALT (test code = 31A) 31 IU/L 10-49 SERUM [id number] 11:06:00* Test Item Value Reference Range Interpretation Comme nts PREG SRM (test code = PGS) NEGATIVE NEGATIVE PRO TIME AND [id number] 11:06:00* Test Item Value Reference Range Interpretation Comme nts PT (test code = TT) 11.4 s 9.8-13.6 INR (test code = INR) 1.0 INRH (test code = INRH) SUGGESTED THERAPEUTIC RANGE FOR INR: 2.5 - 3.5 For Patients with Prosthetic Valves or Patients with recurrent Thromboembolic Events 2.0 - 3.0 For Most Other Applications PTT (test code = PTT) 35.5 s 20.2-38.0 PTTH (test code = PTTH) To monitor the effectiveness of heparin, we offer the Anti-Xa (Heparin Assay). It can be used for either unfractionated or LMW Heparin. Order Code is ANTI-XA [id number] 11:03:00* Test Item Value Reference Range Interpretation Comme nts Hb A1C % (test code = HBA) 5.3 % 3.8-6.4 A1C % (test code = A1C) HbA1c (% ) Reference Range Normal <5.7 Prediabetes 5.7-6.4 Diabetic >=6.5 CBC (INCLUDES AUTOMATED DIFFERENTIAL)2023-09-29 10:57:00* Test Item Value Reference Range Interpretation Comme nts WBC (test code = WBC) 10.4 10\\S\\3/uL 4.5-11.0 RBC (test code = RBC) 5.34 10\\S\\6/uL 4.30-5.70 HGB (test code = HBG) 14.4 g/dL 12.0-15.5 HCT (test code = HCT) 44.3 % 35.0-44.0 H MCV (test code = MCV) 83.0 fL 81.0-99.0 MCH (test code = MCH) 27.0 pg 27.0-31.0 MCHC (test code = MCHC) 32.5 g/dL 32.0-36.0 RDW (test code = RDW) 13.6 % 11.5-14.5 PLT (test code = PLT) 460 10\\S\\3/uL 130-400 H MPV (test code = MPV) 9.7 fL 9.4-12.4 NEUTROP # (test code = NE#) 7.1 10\\S\\3/uL 1.6-8.0 LYMPH # (test code = LY#) 2.5 10\\S\\3/uL 1.1-3.5 MONOCYTE # (test code = MO#) 0.6 10\\S\\3/uL 0.0-1.1 EOSINOPH # (test code = EO#) 0.1 10\\S\\3/uL 0.0-0.7 BASOPHIL # (test code = BA#) 0.1 10\\S\\3/uL 0.0-0.3 IG # (test code = IG#) 0.03 10\\S\\3/uL 0.00-0.06 NRBC # (test code = NRBC#) 0.00 10\\S\\3/uL 0.00-0.01 NEUTROPH % (test code = NE%) 67.9 % 35.0-73.0 LYMPH % (test code = LY%) 24.1 % 20.0-55.0 MONO % (test code = MO%) 6.0 % 2.5-10.0 EOSINOPH % (test code = EO%) 0.9 % 0.0-5.0 BASOPHIL % (test code = BA%) 0.8 % 0.0-2.0 IG % (test code = IG%) 0.3 % 0.0-0.8 NRBC% (test code = NRBC%) 0.0 % 0.0-0.2 MANDIFF (test code = MDIFF) NO RBC MORPH (test code = RBCMOR) NORMAL XR CHEST 1 VIEW [id number] 10:09:55 [facility] : 1985 Sex: FLocation Code: D4 EXAMINATION:XR CHEST 1 VIEWCLINICAL INDICATION:Female, 38 years year old with RADICULOPATHY, LUMBAR REGION;M43.06, M43.06, S32.009S, G80.9, F41.9, G43.909COMPARISON: None.FINDINGS:Single view(s)of the chest submitted.Support Devices: None.Heart: Cardiac silhouette is normal in size.Mediastinum: Mediastinal contours are normal.Lungs: Pulmonary vessels are normal in size. No evidence of focalconsolidation. Low lung volumes.Pleura: Minimal blunting of the costophrenic angles may be related to atelectasis given low lung volumes. No evidence of large pleural effusion. No pneumothorax is present.Bones: Visualized skeleton is intact.IMPRESSION:No evidence of focal consolidation.Electronically signed by: Chintan Bernard MD 09/29/2023 10:09 AM [facility] TROPONIN [id number] 19:54:07* Test Item Value Reference Range Interpretation Comments TROPONIN I (test code = 5808386902) 0.002 ng/mL See_Comment [Automated message] The system which generated this result transmitted reference range: <=0.034. The reference range was not used to interpret this result as normal/abnormal. AVRIL (test code = AVRIL) Reference (Normal) [...] to patient's use of biotin. Lab Interpretation (test code = 43503-8) [id number]* Test Item Value Reference Range Interpretation Comme nts POCT PREG (test code = 1605) negative On board controls acceptable with C Line (test code = 3574) present Lab Interpretation (test cod e = 82381-2) Normal [facility]. METABOLIC PANEL (53831)2022-09-26 19:43:07* Test Item Value Reference Range Interpretation Comme nts NA (test code = 9033751733) 139 mmol/L 135-145 K (test code = 9024786734) 4.5 mmol/L 3.5-5.0 CL (test code = 2555779547) 106 mmol/L 98-108 CO2 TOTAL (test code = 8655086608) 24 mmol/L 23-31 AGAP (test code = [id number]) 2-16 BUN (test code = 5790221502) 12 mg/dL 7-23 GLUCOSE (test code = 7120719254) 101 mg/dL 70-110 CREATININE (test code = 8572289663) 0.69 mg/dL 0.50-1.04 TOTAL BILI (test code = 5485377473) 0.3 mg/dL 0.1-1.1 CALCIUM (test code = 6978524246) 9.5 mg/dL 8.6-10.6 T PROTEIN (test code = 2445930570) 7.5 g/dL 6.3-8.2 ALBUMIN (test code = 1448801770) 4.6 g/dL 3.5-5.0 ALK PHOS (test code = 5833234801) 82 U/L 34-122 ALTv (test code = 1742-6) 31 U/L 5-35 AST(SGOT) (test code = 0901796992) 26 U/L 13-40 eGFR (test code = 0794948440) mL/min/1.73m2 AVRIL (test code = AVRIL) Association of [...] or urine or abnormalities in imaging tests). [facility] Test Item Value Reference Range Interpretation Comme nts LIPASE (test code = 6283134567) 45 U/L 0-220 Lab Interpretation (test cod e = 99269-6) Normal [facility] WITH FSMS4783-05-94 19:35:46* Test Item Value Reference Range Interpretation Comme nts WBC (test code = 6690-2) See_Comment [Automated [employer]] The system which generated this result transmitted reference range: 4.30 - 11.10 10*3/?L. The reference range was not used to interpret this result as normal/abnormal. RBC (test code = 789-8) See_Comment [Konnects] The system which generated this result transmitted reference range: 3.93 - 5.25 10*6/?L. The reference range was not used to interpret this result as normal/abnormal. HGB (test code = 718-7) 13.4 g/dL 11.6-15.0 HCT (test code = 4544-3) 41.7 % 35.7-45.2 MCV (test code = 787-2) 84.8 fL 80.6-95.5 MCH (test code = 785-6) 27.2 pg 25.9-32.8 MCHC (test code = 786-4) 32.1 g/dL 31.6-35.1 RDW-SD (test code = 99992-6) 40.0 fL 39.0-49.9 RDW-CV (test code = 788-0) 13.0 % 12.0-15.5 PLT (test code = 777-3) See_Comment H [Automated messa ge] The system which generated this result transmitted reference range: 166 - 358 10*3/?L. The reference range was not used to interpret this result as normal/abnormal. MPV (test code = 83210-1) 9.9 fL 9.5-12.9 NRBC/100 WBC (test code = 7715940386) See_Comment [Automated me ssage] The system which generated this result transmitted reference range: 0.0 - 10.0 /100 WBCs. The reference range was not used to interpret this result as normal/abnormal. NRBC x10^3 (test code = 4840456453) See_Comment [Automated messa ge] The system which generated this result transmitted reference range: 10*3/?L. The reference range was not used to interpret this result as normal/abnormal. GRAN MAT (NEUT) % (test code = 770-8) 67.6 % IMM GRAN % (test code = 4574940462) 0.40 % LYMPH % (test code = 736-9) 24.9 % MONO % (test code = 5905-5) 4.7 % EOS % (test code = 713-8) 1.5 % BASO % (test code = 706-2) 0.9 % GRAN MAT x10^3(ANC) (test code = 1917112416) 6.95 10*3/uL 1.88-7.09 IMM GRAN x10^3 (test code = 8243989006) 0.04 10*3/uL 0.00-0.06 LYMPH x10^3 (test code = 731-0) 2.56 10*3/uL 1.32-3.29 MONO x10^3 (test code = 742-7) 0.48 10*3/uL 0.33-0.92 EOS x10^3 (test code = 711-2) 0.15 10*3/uL 0.03-0.39 BASO x10^3 (test code = 704-7) 0.09 10*3/uL 0.01-0.07 H Lab Interpretation (test code = 89653-6) [facility] - Urine 2021-09-03 11:00:00* Test Item Value Reference Range Interpretation Comme nts Leukocytes (test code = Leukocytes) Moderate Nitrite (test code = Nitrite) negative Urobilinogen (test code = Urobilinogen) .2 Protein (test code = Protein) Negative pH (test code = pH) 6.5 Blood (test code = Blood) Negative Specific [place] (test code = Specific [place]) 1.020 Ketone (test code = Ketone) Negative Bilirubin (test code = Bilirubin) Negative Glucose (test code = Glucose) Negative Appearance (test code = Appearance) Clear Color (test code = Color) Yellow [facility]"
[2024-09-25] MEDS ORDERED: HYDROCODONE/APAP 5/325 MG TAB ONE (16:02)
--- NOTE | 2024-09-25 16:32 | RAD REPORT ---
EXAMINATION: LUMBAR SPINE 3 VIEWS CLINICAL INDICATION: Female, 39 years old. PAIN TECHNIQUE: AP, lateral, focused lateral lumbosacral views of the lumbar spine were obtained. [id number]. COMPARISON: 04/05/2019 FINDINGS: Status post L4-S1 fusion. The interbody cage at L4-5 is displaced anteriorly and extends nearly 10 mm beyond the L5 vertebral body. This is of uncertain acuity. Severe disc height loss at L5-S1 with a grade 1 anterolisthesis. Chronic appearing wedge compression deformity at L2. IMPRESSION: 1. No acute fracture of the lumbar spine. 2. Status post L4-S1 fusion. The interbody cage at L4-5 is displaced anteriorly which is of uncertain acuity. No postoperative imaging is available for comparison.
--- NOTE | 2024-09-25 16:41 | ER ---
Nurse's Notes [facility] Name: Sarita Tracy Age: 39 yrs Sex: Female : 1985 Arrival Date: 09/25/2024 Time: 15:08 Bed IW9 Private MD: Diagnosis: Strain of muscle, fascia and tendon of lower back Presentation: 09/25 15:59 Chief complaint: Chief complaint: Patient states: "my walker slipped from under me and aa5 I fell". Pt c/o back pain and reports hitting head on the floor, denies LOC. 15:59 Acuity: ROSA 3 aa5 15:59 Coronavirus screen: At this time, the client does not indicate any symptoms associated aa5 with coronavirus-19. Ebola Screen: Patient denies travel to an Ebola-affected area in the 21 days before illness onset. Initial Sepsis Screen: Does the patient meet any 2 criteria? No. Patient's initial sepsis screen is negative. Does the patient have a suspected source of infection? No. Patient's initial sepsis screen is negative. Risk Assessment: Do you want to hurt yourself or someone else? Patient reports no desire to harm self or others. Onset of symptoms was September 25, 2024 at 14:30. 15:59 Method Of Arrival: Ambulatory aa5 Historical: - Allergies: 15:59 Benadryl; aa5 - PMHx: 15:59 Anxiety; Cerebral Palsy; Depression; Hypertension; aa5 - PSHx: 15:59 Back sx (Unknown); aa5 16:00 Bone graft; aa5 - Immunization history:: Adult Immunizations unknown. - Infectious Disease History:: Denies. - Social history:: Smoking status: Patient denies any tobacco usage or history of. Assessment: 16:45 Reassessment: Patient is alert, oriented x 3, equal unlabored respirations, skin aa5 warm/dry/pink. Vital Signs: 15:59 BP 137 / 76; Pulse 66; Resp 16 S; Temp 98(TE); Pulse Ox 99% on R/A; Weight 45.36 kg aa5 (R); Height 4 ft. 11 in. (R); 15:59 Body Mass Index 20.20 (45.36 kg, 149.86 cm) aa5 ED Course: 15:13 Patient arrived in ED. mg5 15:59 Arm band placed on. aa5 16:01 Triage completed. aa5 16:02 Tashi White FNP-C [facility]. [facility] 16:02 Lorenza Salinas MD is Attending Physician. dr5 16:24 Lumbar Spine (3 Views) XRAY In Process Unspecified. EDMS Administered Medications: 16:07 Drug: HYDROcodone-acetaminophen PO 5 mg-325 mg 2 tabs PO once Route: PO; aa5 16:45 Follow up: Response: No adverse reaction aa5 Outcome: 16:41 Discharge ordered by . dr5 16:45 Discharged to home via wheelchair, with family, aa5 16:45 Condition: stable 16:45 Discharge instructions given to patient, Instructed on discharge instructions, follow up and referral plans. medication usage, Demonstrated understanding of instructions, follow-up care, medications, Prescriptions given X 2, 16:47 Patient left the ED. Signatures: Dispatcher [employer] EDMS Mila Eason RN RN aa Angela Daley RN RN Brittany Ozuna mg5 Tashi White FNP-C FNP-Cdr5 Corrections: (The following items were deleted from the chart) 16: 15:59 Chief complaint: aa5 aa5
--- NOTE | 2024-09-25 16:41 | EDPHYS ---
Physician Documentation [facility] Name: Sarita Tracy Age: 39 yrs Sex: Female : 1985 Arrival Date: 09/25/2024 Time: 15:08 Bed IW9 Private MD: ED Physician Lorenza Salinas HPI: 09/25 16:06 This 39 yrs old Female presents to ER via Ambulatory with complaints of XRAY. dr5 16:06 Onset: The symptoms/episode began/occurred acutely. Pt is a 39 year old female with hx dr5 of CP, HTN, Anxiety, and Depression coming in with fall from standing about an hour ago. Pt denies urinary or bowel incontinence, numbness / tingling to bilateral lower legs. Patient is ambulatory with cane in ER.. Historical: - Allergies: 15:59 Benadryl; aa5 - PMHx: 15:59 Anxiety; Cerebral Palsy; Depression; Hypertension; aa5 - PSHx: 15:59 Back sx (Unknown); aa5 16:00 Bone graft; aa5 - Immunization history:: Adult Immunizations unknown. - Infectious Disease History:: Denies. - Social history:: Smoking status: Patient denies any tobacco usage or history of. ROS: 16:06 Constitutional: as per hpi dr5 Exam: 16:06 Constitutional: This is a well developed, well nourished patient who is awake, alert, dr5 and in no acute distress. Head/Face: Normocephalic, atraumatic. Neck: Trachea midline, no thyromegaly or masses palpated, and no cervical lymphadenopathy. Supple, full range of motion without nuchal rigidity, or vertebral point tenderness. No Meningismus. Chest/axilla: Normal chest wall appearance and motion. Nontender with no deformity. No lesions are appreciated. Cardiovascular: Regular rate and rhythm with a normal S1 and S2. Normal PMI, no JVD. No pulse deficits. Respiratory: Lungs have equal breath sounds bilaterally, clear to auscultation. No rales, rhonchi or wheezes noted. No increased work of breathing, no retractions or nasal flaring. Back: No spinal tenderness. No costovertebral tenderness. Full range of motion. Mild right paraspinal tenderness noted to palpation. Old scar from back surgery noted without cellulitis or infection. Vital Signs: 15:59 BP 137 / 76; Pulse 66; Resp 16 S; Temp 98(TE); Pulse Ox 99% on R/A; Weight 45.36 kg aa5 (R); Height 4 ft. 11 in. (R); 15:59 Body Mass Index 20.20 (45.36 kg, 149.86 cm) aa5 MDM: 16:04 Medical Screening Exam initiated dr5 16:49 Differential diagnosis: Fracture, Sprain, Strain. Data reviewed: vital signs, nurses dr5 notes. I considered the following discharge prescriptions or medication management in the emergency department Medications were administered in the Emergency Department. See MAR. Care significantly affected by the following chronic conditions: HTN, CP, Depression, Anxiety. Care significantly affected by the following Social Determinants of Health: Poor access to healthcare and/or lack of insurance, Poor access to transportation, Problems related to employment. Counseling: I had a detailed discussion with the patient and/or guardian regarding the historical points, exam findings, and any diagnostic results supporting the discharge/admit diagnosis, the presence of at least one elevated blood pressure reading (>120/80) during this emergency department visit, radiology results, the need for outpatient follow up, for definitive care, a family practitioner, a orthopedic surgeon, to return to the emergency department if symptoms worsen or persist or if there are any questions or concerns that arise at home. Response to treatment: the patient's symptoms have markedly improved after treatment. ED course: Discussed x-ray with patient that there is old displacement and no acute fractures. Will give patient short course of steroids and muscle relaxers. Recommended alternating Tylenol / Motrin as needed for pain and fever. PCP follow up recommended.. 09/25 16:06 Order name: Lumbar Spine (3 Views) XRAY; Complete Time: 16:37 dr5 Administered Medications: 16:07 Drug: HYDROcodone-acetaminophen PO 5 mg-325 mg 2 tabs PO once Route: PO; aa5 16:45 Follow up: Response: No adverse reaction aa5 Disposition Summary: 09/25/24 16:41 Discharge Ordered Notes: Location: Home dr5 Condition: Stable dr5 Diagnosis - Strain of muscle, fascia and tendon of lower back dr5 Followup: dr5 - With: Emergency Department - When: As needed - Reason: Worsening of condition Followup: dr5 - With: Private Physician - When: 1 - 2 days - Reason: Recheck today's complaints, Continuance of care, Re-evaluation by your physician Discharge Instructions: - Discharge Summary Sheet dr5 - Acute Back Pain, Adult dr5 - Fall Prevention in the Home, Adult dr5 Forms: - Medication Reconciliation Form dr5 - Patient Portal Instructions dr5 - Leadership Thank You Letter dr5 Prescriptions: - Prednisone 20 mg Oral Tablet - take 2 tablets ORAL route once daily for 5 days; 10 tablet; Refills: 0, Product dr5 Selection Permitted - Cyclobenzaprine 5 mg Oral Tablet - take 1 tablet ORAL route 3 times per day As needed; 15 tablet; Refills: 0, dr5 Product Selection Permitted Signatures: Dispatcher [employer] EDMila Coello RN RN aa5 Tashi White, MANAGER WOMEN-C MANAGER WOMEN-Cdr5 Corrections: (The following items were deleted from the chart) 16:06 16:06 Lumbar Spine 3 Views+[email or web address].RAD.BRZ ordered. [facility] EDME
[2024-09-25 19:28] VITALS: BP 137/76; TEMP 98; O2SAT 99
== END 2024-09-25 16:47 | disposition home or self-care (01) ==
LOC: ER 15:08
DX: S39.012A Strain of muscle, fascia and tendon of lower back, initial encounter (principal); G80.9 Cerebral palsy, unspecified
CPT/HCPCS: 72100; 99283

== ENCOUNTER 2025-01-14 13:02 | Emergency (ER) | payer OTHER ==
--- OUTSIDE RECORDS SUMMARY | 2025-01-14 13:09 | XMS REPORT | Continuity of Care Document ---
Author Name Unknown Address [address] [place] [address] [facility] Address [address] [facility] [address] [place] [address] Care Team Providers Care Counselor Supervisor Name Role Phone GÉNESIS BRANDT Primary Care Physician UnavailDR KATERIN Peterson Attending Clinician UnavailDR KATERIN Frances Attending Clinician UnavailTE Fields Attending Clinician Unavailable RADIOLOGY Attending Clinician Unavailable Radiology Attending Clinician Unavailable ENID LEVIN Attending Clinician Unavailable ENID LEVIN Attending Clinician Unavailable Enid Levin DO Attending Clinician [phone] DR CHRISTA RADER Attending Clinic josé miguel Unavailable DR CHRISTA RADER Attending Clinic josé miguel Unavailable YEVGENIY HUANG Attending Clinician Unavail YEVGENIY Batista Attending Clinician Unavail able Yevgeniy Huang MD Attending Clinician Doctor Unassigned, [place] Attending Clinician U MARIA DEL ROSARIO Fernando Attending Clinician Gloria vailable Lab, Ang - Db Attending Clinician Unavailable Maria Del Rosario Foley MD Attending Clinician [facility] Attending Clinician Unavailable Avi GRAB JACK WORKER, Va Attending Clinician [phone] Unknown, Attending Attending Clinician Unavailab le UNKNOWN, ATTENDING Attending Clinician Unavailab NGUYEN Gillis Attending Clinician Unavailable Izabela GARCIA, Nguyen Mcguire Attending Clinician [phone] Sunitha Thomson MD Attending Clinician [phone] Shanon Bella Attending Clinician [phone] SHANON BECK Attending Clinician Unavailabl e Provider, [facility] Attending Clinician Unavailable Taylor Attending Clinician Unavailable DR KATERIN TAYLOR Admitting Clinician Unavaila DIDIER Winston Admitting Clinician Unavailable ENID LEVIN Admitting Clinician Unavailable DR CHRISTA RADER Admitting Clinic josé miguel Unavailable NGUYEN RICHARDS Admitting Clinician Unavailable Taylor Admitting Clinician Unavailable Payers Payer Name Policy Type Policy Number Effective Date Expirati on Date Source [id number] 1959 00:00:00 [facility] DUAL COMP HMO-POS D SNP [id number] 2022 00:00:00 [place] [id number] 2022 00:00:00 [id number] 2023 00:00:00 [facility] - [facility] (MEDICARE REPLACEMENT/ADVANTA GE - HMO) [id number] 2020 00:00:00 [facility] - DUAL COMPLETE - DUAL ELIGIBLE - SNP (MEDICARE-MEDICAID REPLACEMENT HMO) [id number] Problems Condition Name Condition Details Condition Category Status Onset Date Resolution Date Last Treatment Date Treating Clinician Comments Source Pyelonephr itis Pyelonephr itis Disease Active 06-25 00:00: 00 [facility] Acute bilateral low back pain without sciatica Acute bilateral low back pain without sciatica Disease Active 06-25 00:00: 00 [facility] 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 01-27 00:00: 00 [facility] Anxiety Anxiety Disease Active 01-27 00:00: 00 [facility] HTN (hypertens ion) HTN (hypertens ion) Disease Active 01-27 00:00: 00 [facility] No known active problems No known active problems Disease [facility] Allergies, Adverse Reactions, Alerts Allergy Name Allergy Type Status Severity Reaction(s) Onset Date Inactive Date Treating Clinician Comments Source BENADRYL ALLERGY DECONGES TANT DRUG Active Unknown-Cmnt 2021-10 0 00:00: 00 [facility] Benadryl Allergy Deconges tant Propensi ty to adverse reaction s Active Unknown - See comments 2021-10 00:00: 00 Restlessn ess [facility] NO KNOWN ALLERGIE S Drug Class Active [facility] No Known Drug Allergie s DA Active [facility] Social History Social Habit Start Date Stop Date Quantity Comments Source History of tobacco use Cigarette Smoker [facility] Alcohol intake 2023-08-28 00:00:00 2023-08-28 00:00:00 Ex-drinker (finding) [facility] Alcoholic beverage intake 2023-08-28 00:00:00 2023-08-28 00:00:00 Ex-drinker (finding) [facility] Exposure to SARS-CoV-2 (event) 2023-01-17 00:00:00 2023-01-27 13:47:00 Not sure [facility] Cigarettes smoked current (pack per day) - Reported 2023-01-27 00:00:00 2023-01-27 00:00:00 [facility] Cigarette pack-years 2023-01-27 00:00:00 2023-01-27 00:00:00 [facility] Tobacco use and exposure 2023-01-27 00:00:00 2023-01-27 00:00:00 Smokeless tobacco non-user [facility] History of Social function 2023-01-27 00:00:00 2023-01-27 00:00:00 [facility] Sex assigned at 1985 00:00:00 1985 00:00:00 [facility] Smoking Status Start Date Stop Date Source Tobacco smoking consumption unknown [facility] Ex-smoker 2023-01-27 00:00:00 2023-01-27 00:00:00 [facility] Never smoked tobacco [facility] Medications Ordered Medication Name Filled Medication Name Start Date Stop Date Current Medication? Ordering Clinician Indication Dosage Frequency Signature (SIG) Comments Components Source gadoteridol (PROHANCE-1 5 mL) injection 0.2 mL/kg 07-06 19:15: 00 07-06 19:14 :00 No [id number] .2mL/kg 0.2 mL/kg, Intravenou s, ONCE, 1 dose, On Thu07/06/24 at 1415, Routine [facility] morpHINE (4 mg/mL) injection 4 mg 06-26 03:45: 00 06-26 03:42 :00 No 4mg 4 mg, Slow IV Push, ONCE, 1 dose, On 06/25/24 at 2245, STAT [facility] cefTRIAXone (ROCEPHIN) 1,000 mg in NaCl 0.9% (NS) 100 mL MINI-BAG 06-26 03:30: 00 06-26 04:06 :00 No 1000mg 1,000 mg, IV Piggyback, ONCE, 1 dose, On 06/25/24 at 2230, Administer over 30 Minutes, 100 mL, Reason for Anti-Infec tive: Documented Infection, Documented Infection Site: Urine, Duration of Therapy: Once (ED) [facility] iopamidol (ISOVUE 370-500 mL) injection 85 mL 06-26 03:15: 00 06-26 03:15 :00 No [id number] 85mL 85 mL, Intravenou s, ONCE, 1 dose, On 06/25/24 at 2215, Routine [facility] morpHINE (4 mg/mL) injection 4 mg 06-26 01:15: 00 06-26 01:23 :00 No 4mg 4 mg, Slow IV Push, ONCE, 1 dose, On 06/25/24 at 2015, STAT [facility] acetaminoph en-codeine 300-30 mg tablet 06-25 00:00: 00 Yes [id number] 1{tbl} Take 1 tablet by mouth every 8 (eight) hours. Indication s: acute pain [facility] cefpodoxime 200 mg tablet 06-25 00:00: 00 07-06 04:59 :00 No [id number] 200mg Take 1 tablet by mouth in the morning and 1 tablet in the evening. Do all this for 10 days. [facility] buPROPion XL 300 mg 24 hr tablet 2022-10 12:07: 12 Yes 300mg Take 1 tablet by mouth every morning. [facility] butalbital- acetaminoph en-caffeine 50-325-40-3 0 mg per capsule 2022-10 12:05: 36 Yes 1{capsu le} Take 1 capsule by mouth every 6 (six) hours as needed for Headache. [facility] acetaminoph en-codeine 300-30 mg tablet 2022-10 00:00: 00 Yes 1{tbl} Take 1 tablet by mouth every 8 (eight) hours as needed (pain). [facility] busPIRone 5 mg tablet 2022-10 00:00: 00 Yes 5mg Take 1 tablet by mouth 2 (two) times daily as needed. [facility] butalbital- acetaminoph en-caffeine 50-325-40-3 0 mg per capsule 01-27 14:03: 08 Yes 1{capsu le} Take 1 capsule by mouth every 6 (six) hours as needed for Headache. [facility] zolpidem 5 mg tablet 01-27 14:03: 08 Yes 5mg Take 1 tablet by mouth at bedtime as needed for Insomnia. [facility] baclofen 5 mg tablet 01-27 00:00: 00 Yes [id number] 5mg Take 1 tablet by mouth 3 (three) times daily as needed for Other or Pain (scale 7-10) (back back, muscle spasm, or leg pain). [facility] SERTraline 25 mg tablet 01-27 00:00: 00 Yes [id number] 12.5mg Take 0.5 tablets by mouth in the morning. [facility] lisinopriL 10 mg tablet 01-27 00:00: 00 Yes [id number] 10mg Take 1 tablet by mouth in the morning. [facility] acetaminoph en-codeine 300-30 mg tablet 11-28 00:00: 00 01-27 00:00 :00 No TAKE 1 TABLET BY MOUTH TWICE DAILY NEEDED [facility] albuterol 90 mcg/actuati on inhaler 2021-10 00:00: 00 10-24 05:59 :00 No [id number] 2{puff} Inhale 2 Puffs every 6 (six) hours as needed for Wheezing or Shortness of Breath for up to 10 days. [facility] benzonatate 200 mg capsule 2021-10 00:00: 00 10-24 05:59 :00 No [id number] 200mg Take 1 capsule by mouth 3 (three) times daily as needed for Cough for up to 10 days. [facility] iopamidol (ISOVUE 370-500 mL) injection 79 mL 2021-10 21:00: 00 09-26 20:02 :00 No [id number] 79mL 79 mL, Intravenou s, ONCE, 1 dose, On Thu09/26/22 at 1500, Routine [facility] ketorolac (TORADOL) injection 30 mg 2021-10 19:45: 00 09-26 19:20 :00 No 30mg 30 mg, Slow IV Push, ONCE, 1 dose, On Thu09/26/22 at 1345, Routine [facility] ondansetron (ZOFRAN (PF)) injection 4 mg 2021-10 19:00: 00 09-26 19:20 :00 No 4mg 4 mg, Slow IV Push, ONCE, 1 dose, On Thu09/26/22 at 1300, FRANKLIN [facility] ondansetron 4 mg disintegrat ing tablet 2021-10 00:00: 00 Yes [id number] 4mg Take 1 tablet by mouth every 8 (eight) hours as needed for Nausea and Vomiting (N/V). [facility] ibuprofen 600 mg tablet 2021-10 00:00: 00 Yes [id number] 600mg Take 1 tablet by mouth every 6 (six) hours as needed for Pain (scale 4-6) or Pain (scale 1-3). [facility] cefdinir 300 mg capsule 2021-10 00:00: 00 10-04 05:59 :00 No [id number] 300mg Take 1 capsule by mouth every 12 (twelve) hours for 7 days. [facility] methylpredn isolone sod succ (SOLU-MEDRO L) injection 125 mg 2021-10 0-05 00:15: 00 07-22 23:19 :16 No [id number] 125mg [facility] methylpredn isolone sod succ (SOLU-MEDRO L) injection 125 mg 2021-10 0-05 00:15: 00 07-22 23:22 :00 No [id number] 125mg [facility] fluticasone propionate 50 mcg/actuati on nasal spray 2021-10 0-04 00:00: 00 Yes [id number] 1{spray } Use 1 [place] in each nostril in the morning. [facility] azelastine 137 mcg (0.1 %) nasal spray 2021-10 004 00:00: 00 Yes [id number] 1{spray } Use 1 [place] in each nostril in the morning and 1 [place] in the evening. Use in each nostril as directed [facility] cetirizine (ZYRTEC) 10 mg tablet 2021-10 0-04 00:00: 00 Yes [id number] 10mg Take 1 tablet by mouth in the morning. [facility] meclizine 12.5 mg tablet - 00:00: 00 07-22 00:00 :00 No TAKE 1 TO 2 TABLETS BY MOUTH AT NIGHT NEEDED [facility] buPROPion XL 300 mg 24 hr tablet 9-10 00:00: 00 01-27 00:00 :00 No 300mg Take 1 tablet by mouth every morning. [facility] lisinopriL 10 mg tablet 8-28 00:00: 00 01-27 00:00 :00 No 10mg Take 1 tablet by mouth in the morning. [facility] FLUoxetine 10 mg capsule 7-21 00:00: 00 01-27 00:00 :00 No 10mg Take 1 capsule by mouth in the morning. [facility] drospirenon e-ethinyl estradioL 3-0.03 mg per tablet 7-19 00:00: 00 Yes 1{tbl} Take 1 tablet by mouth in the morning. [facility] triamcinolo ne acetonide 0.1 % cream 7-15 00:00: 00 Yes APPLY THIN LAYER TOPICALLY TO THE AFFECTED AREA EVERY 12 HOURS FOR 14 DAYS [facility] No known medications 4-17 21:06: 20 No No known medication s [facility] butalbital- acetaminoph en-caffeine 50 mg-325 mg-40 mg tablet TAKE 1 TABLET BY MOUTH TWICE DAILY NEEDED FOR HEADACHE butalbital- acetaminoph en-caffeine 50 mg-325 mg-40 mg tablet TAKE 1 TABLET BY MOUTH TWICE DAILY NEEDED FOR HEADACHE No butalbital -acetamino phen-caffe ine 50 mg-325 mg-40 mg tablet TAKE 1 TABLET BY MOUTH TWICE DAILY NEEDED FOR HEADACHE [facility] epinephrine 0.3 mg/0.3 mL injection, auto-inject or ADMINISTER 0.3 ML IN THE MUSCLE 1 TIME NEEDED FOR ANAPHYLAXIS epinephrine 0.3 mg/0.3 mL injection, auto-inject or ADMINISTER 0.3 ML IN THE MUSCLE 1 TIME NEEDED FOR ANAPHYLAXIS No epinephrin e 0.3 mg/0.3 mL injection, auto-injec tor ADMINISTER 0.3 ML IN THE MUSCLE 1 TIME NEEDED FOR ANAPHYLAXI S [facility] Lo Loestrin Fe 1 mg-10 mcg (24)/10 mcg (2) tablet Take 1 tablet every day by oral route. Lo Loestrin Fe 1 mg-10 mcg (24)/10 mcg (2) tablet Take 1 tablet every day by oral route. No 1 Q1D Lo Loestrin Fe 1 mg-10 mcg (24)/10 mcg (2) tablet Take 1 tablet every day by oral route. [facility] Aurovela Fe 1-20 (28) 1 mg-20 mcg (21)/75 mg (7) tablet TAKE 1 TABLET BY MOUTH EVERY DAY Aurovela Fe 1-20 (28) 1 mg-20 mcg (21)/75 mg (7) tablet TAKE 1 TABLET BY MOUTH EVERY DAY No Aurovela Fe 1-20 (28) 1 mg-20 mcg (21)/75 mg (7) tablet TAKE 1 TABLET BY MOUTH EVERY DAY [facility] Vital Signs Vital Name Observation Time Observation Value Comments S ource Height 2023-09-30 07:40:00 149.86 CM Weight 2023-09-30 07:40:00 61 KG Systolic blood pressure 2024-06-26 03:00:00 125 mm[Hg] [facility] Diastolic blood pressure 2024-06-26 03:00:00 68 mm[Hg] [facility] Heart rate 2024-06-26 03:00:00 63 /min [facility] Oxygen saturation in Arterial blood by Pulse oximetry 2024-06-26 03:00:00 97 /min [facility] Body temperature 2024-06-26 00:55:00 37 Patti [facility] Respiratory rate 2024-06-26 00:55:00 18 /min [facility] Body height 2024-06-26 00:55:00 149.9 cm [facility] Body weight 2024-06-26 00:55:00 58.514 kg [facility] BMI 2024-06-26 00:55:00 26.05 kg/m2 [facility] Height 2023-10-07 07:11:00 152.4 CM Weight 2023-10-07 07:11:00 62.59 KG Height 2023-09-30 07:40:00 149.86 CM Weight 2023-09-30 07:40:00 61 KG Systolic blood pressure 2023-08-28 18:08:00 111 mm[Hg] [facility] Diastolic blood pressure 2023-08-28 18:08:00 77 mm[Hg] [facility] Heart rate 2023-08-28 18:04:00 87 /min [facility] Respiratory rate 2023-08-28 18:04:00 18 /min [facility] Body height 2023-08-28 18:04:00 149.9 cm [facility] Body weight 2023-08-28 18:04:00 62.687 kg [facility] BMI 2023-08-28 18:04:00 27.91 kg/m2 [facility] Oxygen saturation in Arterial blood by Pulse oximetry 2023-08-28 18:04:00 98 /min [facility] Systolic blood pressure 2023-01-27 18:49:00 124 mm[Hg] [facility] Diastolic blood pressure 2023-01-27 18:49:00 67 mm[Hg] [facility] Heart rate 2023-01-27 18:49:00 63 /min [facility] Body temperature 2023-01-27 18:49:00 36.39 Patti [facility] Respiratory rate 2023-01-27 18:49:00 16 /min [facility] Body height 2023-01-27 18:49:00 152 cm [facility] Body weight 2023-01-27 18:49:00 67.314 kg [facility] BMI 2023-01-27 18:49:00 29.13 kg/m2 [facility] Oxygen saturation in Arterial blood by Pulse oximetry 2023-01-27 18:49:00 100 /min [facility] Systolic blood pressure 2022-10-13 19:03:00 125 mm[Hg] [facility] Diastolic blood pressure 2022-10-13 19:03:00 79 mm[Hg] [facility] Heart rate 2022-10-13 19:03:00 126 /min [facility] Body temperature 2022-10-13 19:03:00 37.94 Patti [facility] Respiratory rate 2022-10-13 19:03:00 18 /min [facility] Oxygen saturation in Arterial blood by Pulse oximetry 2022-10-13 19:03:00 98 /min [facility] Systolic blood pressure 2022-09-26 21:00:00 124 mm[Hg] [facility] Diastolic blood pressure 2022-09-26 21:00:00 79 mm[Hg] [facility] Heart rate 2022-09-26 21:00:00 66 /min [facility] Respiratory rate 2022-09-26 21:00:00 18 /min [facility] Oxygen saturation in Arterial blood by Pulse oximetry 2022-09-26 21:00:00 98 /min [facility] Body temperature 2022-09-26 18:33:00 36.89 Patti [facility] Body height 2022-09-26 18:33:00 152.4 cm [facility] Body weight 2022-09-26 18:33:00 58.968 kg [facility] BMI 2022-09-26 18:33:00 25.39 kg/m2 [facility] Systolic blood pressure 2022-07-22 23:08:00 142 mm[Hg] [facility] Diastolic blood pressure 2022-07-22 23:08:00 81 mm[Hg] [facility] Heart rate 2022-07-22 23:08:00 67 /min [facility] Body temperature 2022-07-22 23:08:00 36.72 Patti [facility] Respiratory rate 2022-07-22 23:08:00 16 /min [facility] Body height 2022-07-22 23:08:00 152.4 cm [facility] Body weight 2022-07-22 23:08:00 58.968 kg [facility] BMI 2022-07-22 23:08:00 25.39 kg/m2 [facility] Oxygen saturation in Arterial blood by Pulse oximetry 2022-07-22 23:08:00 98 /min [facility] BP Diastolic 2021-09-03 00:00:00 96 mm[Hg] [facility] Height 2021-09-03 00:00:00 60 [in_i] [facility] BMI (Body Mass Index) 2021-09-03 00:00:00 28.3 kg/m2 [facility] BP Systolic 2021-09-03 00:00:00 146 mm[Hg] [facility] Body Weight 2021-09-03 00:00:00 144.8 [lb_av] [facility] Procedures Procedure Date / Time Performed Performing Clinician Source MR HIP LEFT W WO CONTRAST 2024-07-06 19:11:36 Requisition, Paper [facility] CT ABDOMEN PELVIS W CONTRAST 2024-06-26 02:28:44 Sujit Ugalde [facility] COMP. METABOLIC PANEL ([id number]) 2024-06-26 02:08:00 Enid Levin [facility] LIPASE 2024-06-26 01:22:00 Enid Levin [facility] CBC WITH DIFF 2024-06-26 01:22:00 Sujit Ugalde [facility] URINALYSIS 2024-06-26 01:21:00 Sujit Ugalde [facility] POCT TEST 2024-06-26 01:21:00 Dno Ugalde [facility] SORIANO NAUTO RED BLD CLL PERIPH VN PC 2023-10-09 00:00:00 [facility] FUSION LV JOINT AUTO SUB POST PC OP 2023-10-07 00:00:00 [facility] FUSION LS JOINT AUTO SUB POST PC OP 2023-10-07 00:00:00 [facility] EXCISION LEFT PELVIC BONE OPEN APPR 2023-10-07 00:00:00 [facility] RELEASE LUMBAR NERVE OPEN APPROACH 2023-10-07 00:00:00 [facility] MONITOR PERIP NERV ELEC INTRAOP EXT 2023-10-07 00:00:00 [facility] FUSION LV JOINT IF ANT APPR AC OPEN 2023-09-30 00:00:00 [facility] FUSION LS JOINT IF ANT APPR AC OPEN 2023-09-30 00:00:00 [facility] RESECT LUMBAR VERTEBRAL DISC OPEN 2023-09-30 00:00:00 [facility] RESECTION LUMBOSACRAL DISC OPEN 2023-09-30 00:00:00 [facility] MONITOR PERIP NERV ELEC INTRAOP EXT 2023-09-30 00:00:00 [facility] REFERRAL- REQUEST/RESPONSE 2023-08-27 06:01:00 Doctor Unassigned, [place] [facility] XR CHEST 2 2022-10-13 19:43:25 Va Tubbs [facility] XR CHEST 1 2022-09-26 20:11:37 Nguyen Richards [facility] CT ABDOMEN PELVIS W CONTRAST 2022-09-26 20:09:59 Nguyen Richards [facility] URINALYSIS 2022-09-26 19:53:00 Nguyen Richards [facility] POCT TEST 2022-09-26 19:51:00 Nguyen Richards [facility] LIPASE 2022-09-26 19:18:00 Nguyen Richards [facility] TROPONIN I 2022-09-26 19:18:00 Nguyen Richards [facility] COMP. METABOLIC PANEL ([id number]) 2022-09-26 19:18:00 Nguyen Richards [facility] CBC WITH DIFF 2022-09-26 19:18:00 Nguyen Richards [facility] CONSENT/REFUSAL FOR DIAGNOSIS AND TREATMENT 2022-09-26 18:26:28 Doctor Unassigned, [place] [facility] ASSIGNMENT OF BENEFITS 2022-07-22 23:01:50 Docto r Unassigned, [place] [facility] Plan of Care Planned Activity Planned Date Details Comments Source Diagnostic Test Pending 2021-09-03 00:00:00 culture, urine [code = culture, urine] [facility] Diagnostic Test Pending 2021-09-03 00:00:00 urinalysis, dipstick [code = urinalysis, dipstick] [facility] Diagnostic Test Pending 2021-09-03 00:00:00 test, urine [code = test, urine] [facility] Encounters Start Date/Time End Date/Time Encounter Type Admission Type Attending [facility] Facility Care Department Encounter ID Source 2023-09-30 14:40:00 Inpatient KATERIN CARRANZA RICHARD [facility] [id number] [facility] 2024-12-29 08:00:00 2024-12-29 08:00:00 Outpatient R TE [facility] [id number] [facility] 2024-07-07 08:00:00 2024-07-07 08:00:00 Outpatient R [facility] [id number] [facility] 2024-07-06 11:50:20 2024-07-06 23:59:00 Outpatient R RADIOLOGY [facility] [id number] [facility] 2024-07-06 11:50:20 2024-07-06 23:59:00 Hospital Encounter Radiology Radiology [facility] [id number] [facility] 2024-06-25 19:57:00 2024-06-25 23:29:00 Emergency X ENID LEVIN MATTHEW [facility] ERT [id number] [facility] 2024-06-25 19:57:00 2024-06-25 23:29:00 Emergency Enid Levin [facility] [id number] [facility] 2023-10-07 14:01:00 2023-10-10 20:30:00 Inpatient C CHRISTA RADER MUHAMMAD NAUMAN [facility] [id number] [facility] 2023-10-07 06:15:00 2023-10-07 06:15:00 Outpatient C KATERIN TAYLORKATERIN [facility] [id number] [facility] 2023-09-30 14:50:00 2023-10-02 14:30:00 Inpatient C CHRISTA RADER, CHRISTA [facility] [id number] [facility] 2023-08-28 12:40:00 2023-08-28 12:50:05 Outpatient YEVGENIY WOODALL [facility] [id number] [facility] 2023-08-28 12:40:00 2023-08-28 12:50:05 Office Visit Yevgeniy Huang [facility] [id number] [facility] 2023-08-28 00:00:00 2023-08-28 00:00:00 [facility] [id number] [facility] 2023-08-27 00:00:00 2023-08-27 00:00:00 Orders Only Doctor Unassigned, [place] [facility] [id number] [id number] [facility] 2023-02-10 13:45:00 2023-02-10 13:45:00 Outpatient MARIA DEL ROSARIO [facility] [id number] [facility] 2023-01-27 14:30:00 2023-01-27 14:51:30 Bag Patcher Visit Lab, Ang - Maria Del Rosario Quinonez [facility] [id number] [facility] 2023-01-27 14:00:00 2023-01-27 14:37:11 Outpatient R MARIA DEL ROSARIO [facility] [id number] [facility] 2023-01-27 14:00:00 2023-01-27 14:37:11 Office Visit Maria Del Rosario Foley [facility] 1.840.114 350.1.13.10 4.2.7.2.686 [id number] [facility] 2022-10-13 13:12:25 2022-10-13 23:59:00 Outpatient R VA TUBBS [facility] [id number] [facility] 2022-10-13 13:12:25 2022-10-13 23:59:00 Hospital Encounter Va Tubbs [facility] 1.840.114 350.1.13.10 4.2.7.2.686 [id number] [facility] 2022-10-13 13:00:00 2022-10-13 13:20:00 Urgent Care Va Tubbs Unknown, Attending [facility] 1.84.114 350.1.13.10 4.2.7.2.686 [id number] [facility] 2022-10-13 13:00:00 2022-10-13 13:00:00 Outpatient R UNKNOWN, ATTENDING [facility] [id number] [facility] 2022-09-26 12:34:00 2022-09-26 16:05:00 Emergency X NGUYEN RICHARDS [facility] ERT [id number] [facility] 2022-09-26 12:34:00 2022-09-26 16:05:00 Emergency Nguyen Richards G [facility] 1.2.840.114 350.1.13.10 4.2.7.2.686 [id number] [facility] 2022-07-22 18:00:00 2022-07-22 18:20:54 Urgent Care Sunitha [facility] 1.2.840.114 350.1.13.10 4.2.7.2.686 [id number] [facility] 2022-07-22 18:00:00 2022-07-22 18:20:54 Outpatient Bonita BECK SHANON [facility] [id number] [facility] 2022-07-22 00:00:00 2022-07-22 00:00:00 Orders Only Doctor Unassigned, [place] [facility] 1.2.840.114 350.1.13.10 4.2.7.2.686 [id number] [facility] 2022-07-22 00:00:00 2022-07-22 00:00:00 Letter (Out) Provider, Parveen Gonzales Ur[facility] Care [facility]?JULIAAnastacio [facility] 1.2.840.114 350.1.13.10 4.2.7.2.686 [id number] [facility] 2021-09-05 08:33:00 2021-09-05 08:33:00 [place] [id number] [facility] 2021-09-03 00:00:00 2021-09-03 00:00:00 LANEY Mcbride: [address], [place] [address] , Ph. [phone] [facility] [place] [facility] [id number] [facility] 2021-08-28 02:05:00 2021-08-28 02:05:00 Outpatient White[facility] [place] [id number] [facility] Results Test Description Test Time Test [...] with enhancement is seen along with mild H6tzazgw increase within the left paraspinal musculature. There is partialvisualization of a medullary based hypointense T1 and intermediate C3uawcfv lesion within the proximal right femur extending [...] rotators and adductors are within normal limits. [facility] CT ABDOMEN PELVIS W [...] 4, image 60; series 6, image 61). [id number]* Test Item Value Reference Range Interpretation Comme nts POCT PREG (test code = 1605) Negative On board controls acceptable with C Line (test code = 3574) Yes POCT PREG LOT # (test code = 3575) [id number] POCT PREG TEST DATE ( test code = 3576) 2025-02-25 Lab Interpretation (test cod e = 39332-8) Normal [facility] [id number] 06:44:00* Test Item Value Reference Range Interpretation Comme nts Culture Observations (test code = COB1) NO GROWTH AFTER 5 DAYS COMPREHENSIVE METABOLIC [id number] 09:59:00* Test Item Value Reference Range Interpretation [...] (test code = 31A) 41 IU/L 10-49 [id number] 09:59:00* Test Item Value Reference Range Interpretation [...] (test code = RBCMOR) NORMAL BASIC METABOLIC [id number] 06:57:00* Test Item Value Reference Range Interpretation [...] code = RBCMOR) NORMAL CBC WITH MANUAL [id number] 09:06:00* Test Item Value Reference Range Interpretation [...] PLTMOR) NORMAL (1.5-3 um) NORMAL COMPREHENSIVE METABOLIC [id number] 03:53:00* Test Item Value Reference Range Interpretation [...] 17 IU/L 10-49 HEPATITIS B CORE IgM [id number] 11:20:00* Test Item Value Reference Range Interpretation Comme nts HEPATITIS B CORE ANTIBODY (IGM) (test code = 10380877) NON-REACTIVE NON-REACTIVE For additional information, please refer [email or web address] [email or web address](This link is being provided for informational/educati onal purposes only.)TEST PERFORMED AT:[facility] [address] [address]ZOPHFIKATHRINE SHETH MD,PHD. HEPATITIS A IGM [id number] 11:18:00* Test Item Value Reference Range Interpretation Comme nts HEPATITIS A IGM (test code = 26837237) NON-REACTIVE NON-REACTIVE For additional information, please refer [email or web address] q/JSC145(This link is being provided for informational/educati onal purposes only.)TEST PERFORMED AT:[facility] [address] [address]ZLJZKJKATHRINE SHETH MD,PHD. CBC WITH MANUAL [id number] 10:42:00* Test Item Value Reference Range Interpretation [...] PLTMOR) NORMAL (1.5-3 um) NORMAL COMPREHENSIVE METABOLIC [id number] 04:28:00* Test Item Value Reference Range Interpretation [...] (test code = 31A) 29 IU/L 10-49 [id number] 12:00:00* Test Item Value Reference Range Interpretation Comme nts HIV-1,2 Ab \\T\\ p24 Ag (test code = CHIV) NON-REACTIVE NON-REACTIVE HEPATITIS C [id number] 11:52:00* Test Item Value Reference Range Interpretation Comme nts HCAB (test code = HCAB) NON-REACTIVE NON-REACTIVE HEPATITIS B SURFACE [id number] 11:29:00* Test Item Value Reference Range Interpretation Comme nts HBSAG (test code = HBSAG) NON-REACTIVE NON-REACTIVE LIPID [id number] 11:08:00* Test Item Value Reference Range Interpretation Comme nts CHOLESTROL (test code = 44A) 206 mg/dL <=199 H TRIGLYCERI (test code = 42B) 138 mg/dL <=149 HDL (test code = 83D) 45.7 mg/dL 40.0-60.0 LDL (test code = 34B) 152 mg/dL <=99 H CHL/HDL (test code = CHR) 4.5 0.0-3.4 H COMPREHENSIVE METABOLIC [id number] 11:08:00* Test Item Value Reference Range Interpretation [...] code = 31A) 31 IU/L 10-49 SERUM [id number] 11:06:00* Test Item Value Reference Range Interpretation Comme nts PREG SRM (test code = PGS) NEGATIVE NEGATIVE PRO TIME AND [id number] 11:06:00* Test Item Value Reference Range Interpretation [...] or LMW Heparin. Order Code is ANTI-XA [id number] 11:03:00* Test Item Value Reference Range Interpretation [...] = RBCMOR) NORMAL XR CHEST 1 VIEW [id number] 10:09:55 [facility] : 1985 Sex: FLocation [...] by: Chintan Bernard MD 09/29/2023 10:09 AM [facility] TROPONIN [id number] 19:54:07* Test Item Value Reference Range Interpretation Comments TROPONIN I (test code = 3162337554) 0.002 ng/mL See_Comment [Automated message] The system [...] of biotin. Lab Interpretation (test code = 47181-0) Normal [facility] [id number] 19:51:00* Test Item Value Reference Range Interpretation Comme nts POCT PREG (test code = 1605) negative On board controls acceptable with C Line (test code = 3574) present Lab Interpretation (test cod e = 40781-4) Normal [facility]. METABOLIC PANEL (50969)2022-09-26 19:43:07* Test Item Value Reference Range Interpretation Comme nts NA (test code = 4647046426) 139 mmol/L 135-145 K (test code = 7390215450) 4.5 mmol/L 3.5-5.0 CL (test code = 0484190288) 106 mmol/L 98-108 CO2 TOTAL (test code = 5029368996) 24 mmol/L 23-31 AGAP (test code = 8787232021) 2-16 BUN (test code = 5803662588) 12 mg/dL 7-23 GLUCOSE (test code = 5850205663) 101 mg/dL 70-110 CREATININE (test code = 5890169186) 0.69 mg/dL 0.50-1.04 TOTAL BILI (test code = 0019184818) 0.3 mg/dL 0.1-1.1 CALCIUM (test code = 4016413487) 9.5 mg/dL 8.6-10.6 T PROTEIN (test code = 9604527114) 7.5 g/dL 6.3-8.2 ALBUMIN (test code = 1455201116) 4.6 g/dL 3.5-5.0 ALK PHOS (test code = 4118218711) 82 U/L 34-122 ALTv (test code = 1742-6) 31 U/L 5-35 AST(SGOT) (test code = 8370134723) 26 U/L 13-40 eGFR (test code = 3743485579) mL/min/1.73m2 AVRIL (test code = AVRIL) Association [...] or urine or abnormalities in imaging tests). [facility] 19:42:47* Test Item Value Reference Range Interpretation Comme nts LIPASE (test code = 2075659250) 45 U/L 0-220 Lab Interpretation (test cod e = 92842-0) Normal [facility] WITH [id number] 19:35:46* Test Item Value Reference Range Interpretation Comme nts WBC (test code = 6690-2) See_Comment [Automated Ztory] The system which generated this result transmitted reference range: 4.30 - 11.10 10*3/?L. The reference range was not used to interpret this result as normal/abnormal. RBC (test code = 789-8) See_Comment [Automated Ztory] The system which generated this result transmitted [...] 32.1 g/dL 31.6-35.1 RDW-SD (test code = 65073-4) 40.0 fL 39.0-49.9 RDW-CV (test code = 788-0) 13.0 % 12.0-15.5 PLT (test code = 777-3) See_Comment H [Automated messa ge] The system which generated this result transmitted reference range: 166 - 358 10*3/?L. The reference range was not used to interpret this result as normal/abnormal. MPV (test code = 72923-5) 9.9 fL 9.5-12.9 NRBC/100 WBC (test code = 9463333951) See_Comment [Automated Bio[employer] ssage] The system which generated this result transmitted reference range: 0.0 - 10.0 /100 WBCs. The reference range was not used to interpret this result as normal/abnormal. NRBC x10^3 (test code = 6562176818) See_Comment [Automated messa ge] The system which generated this result transmitted reference range: 10*3/?L. The reference range was not used to interpret this result as normal/abnormal. GRAN MAT (NEUT) % (test code = 770-8) 67.6 % IMM GRAN % (test code = 4564020145) 0.40 % LYMPH % (test code = 736-9) 24.9 % MONO % (test code = 5905-5) 4.7 % EOS % (test code = 713-8) 1.5 % BASO % (test code = 706-2) 0.9 % GRAN MAT x10^3(ANC) (test code = 9519939782) 6.95 10*3/uL 1.88-7.09 IMM GRAN x10^3 (test code = 3706707122) 0.04 10*3/uL 0.00-0.06 LYMPH x10^3 (test code = 731-0) 2.56 10*3/uL 1.32-3.29 MONO x10^3 (test code = 742-7) 0.48 10*3/uL 0.33-0.92 EOS x10^3 (test code = 711-2) 0.15 10*3/uL 0.03-0.39 BASO x10^3 (test code = 704-7) 0.09 10*3/uL 0.01-0.07 H Lab Interpretation (test code = 18292-4) Abnormal [facility] Center[facility] macro (dipstick) panel - Urine 2021-09-03 11:00:00* Test Item Value Reference Range Interpretation Comme nts Leukocytes (test code = Leukocytes) Moderate Nitrite (test code = Nitrite) negative Urobilinogen (test code = Urobilinogen) .2 Protein (test code = Protein) Negative pH (test code = pH) 6.5 Blood (test code = Blood) Negative Specific [place] (test code = Specific [place]) 1.020 Ketone (test code = Ketone) Negative Bilirubin (test code = Bilirubin) Negative Glucose (test code = Glucose) Negative Appearance (test code = Appearance) Clear Color (test code = Color) Yellow [facility] Notes Date/Time Note Provider Source 2024-06-25 23:25:18 Pt given printed and verbal discharge instructions regarding pyelonephritis, encouraged hydration, Prescriptions provided Discussed ibuprofen and to take with food to avoid GI distress. Discussed antibiotic therapy and to take until all completed unless adverse reaction occurs - if occurs, discontinue medication and follow up with pcp/seek medical attention Discussed Tylenol # 3 side affects and to avoid driving/operating machinery/or engaging in activities requiring alertness while taking. Pt verbalized understanding of instructions, pt awake alert oriented, resp reg unlabored, skin w/d, color appropriate for race, moves all ext well,pt encouraged to follow up with pcp. Advised to seek medical attention for new/prolonged/worsening of symptoms. No adverse reaction to meds given in ER noted upon discharge PIV d'cd, dressing to site, catheter in tact. Awake, alert oriented, resp reg unlabored, skin w/d, pt leaving amb with steady gait, in no apparent distress. Alexandra Shen RN [facility] 2024-06-25 19:53:21 Pt arrived ambulatory with use of walker. Pt c/o lower back and left hip pain. Pt had spinal surgery and hip graft in September of 2023. Pt last took Tylenol #3 and Robaxin this AM, those medications did not help with pain. Pt denies any kind of injury to back or hip that would have caused pain Almita Mcmahan RN [facility]"
[2025-01-14] MEDS ORDERED: dexAMETHasone 10 MG/ML VIAL ONE (14:46)
--- NOTE | 2025-01-14 14:46 | RAD REPORT ---
EXAMINATION: ONE VIEW CHEST XR CLINICAL INDICATION: Female, 39 years old.,Congestion;Cough TECHNIQUE: Frontal chest projection is submitted. Examination is limited by patient positioning and t echnique. COMPARISON: 07/27/2020. FINDINGS: The lungs are well inflated and clear. No pneumothorax or sizable effusion. The heart is normal in s ize. Mediastinal contours are unremarkable. IMPRESSION: No acute intrathoracic abnormalities.
[2025-01-14 15:31] LABS: Influenza A Ag Negative; Influenza B Ag Negative; SARS-CoV-2 Antigen Rapid Res Negative (Negative)
--- NOTE | 2025-01-14 16:08 | ER ---
Nurse's Notes [facility] Name: Sarita Tracy Age: 39 yrs Sex: Female : 1985 Arrival Date: 01/14/2025 Time: 13:02 Bed 17 Private MD: Diagnosis: Other acute sinusitis Presentation: 01/14 13:25 Chief complaint: Patient states: Left ear pain and sore throat that radiates to her cm10 chest onset 1 week ago. pt states that she was seen at pcp and was diagnosed with a viral infection. pt states that she feels weak. Coronavirus screen: Client denies travel out of the [place] in the last 14 days. Ebola Screen: Patient denies travel to an Ebola-affected area in the 21 days before illness onset. Initial Sepsis Screen: Does the patient meet any 2 criteria? No. Patient's initial sepsis screen is negative. Does the patient have a suspected source of infection? No. Patient's initial sepsis screen is negative. Risk Assessment: Do you want to hurt yourself or someone else? Patient reports no desire to harm self or others. Onset of symptoms was January 07, 2025. 13:25 Method Of Arrival: Ambulatory cm10 13:25 Acuity: ROSA 3 cm10 Triage Assessment: 13:26 General: Appears in no apparent distress. comfortable, Behavior is calm, cooperative. cm10 Neuro: No deficits noted. Level of Consciousness is awake, alert, obeys commands, Oriented to person, place, time, situation, Appropriate for age. Respiratory: No deficits noted. Airway is patent Respiratory effort is even, unlabored, Respiratory pattern is regular, symmetrical. Historical: - Allergies: 13:26 Benadryl; cm10 - PMHx: 13:26 Anxiety; Cerebral Palsy; Depression; Hypertension; cm10 - PSHx: 13:26 back sx; bone graft; cm10 - Immunization history:: Adult Immunizations up to date. - Infectious Disease History:: Denies. - Social history:: Smoking status: Patient denies any tobacco usage or history of. Screenin:48 [facility] ED Fall Risk Assessment (Adult) History of falling in the last 3 months, db including since admission No falls in past 3 months (0 pts) Confusion or Disorientation No (0 pts) Intoxicated or Sedated No (0 pts) Impaired Gait Yes (1 pt) Mobility Assist Device Used Yes (1 pt) Altered Elimination No (0 pt) Score/Fall Risk Level 0 - 2 = Low Risk Oriented to surroundings, Maintained a safe environment. Abuse screen: Denies threats or abuse. Denies injuries from another. Nutritional screening: No deficits noted. Tuberculosis screening: No symptoms or risk factors identified. Assessment: 13:48 Reassessment: Patient appears in no apparent distress at this time. Patient and/or db family updated on plan of care and expected duration. Pain level reassessed. Patient is alert, oriented x 3, equal unlabored respirations, skin warm/dry/pink. General: Appears in no apparent distress. comfortable, Behavior is calm, cooperative. Pain: Pain: Complains of pain in left ear. 13:48 Neuro: Level of Consciousness is awake, alert, obeys commands, Oriented to person, db place, time, situation. Respiratory: Airway is patent Respiratory effort is even, unlabored, Respiratory pattern is regular, symmetrical. EENT: Reports pain in left ear. 15:00 Reassessment: Patient appears in no apparent distress at this time. Patient and/or db family updated on plan of care and expected duration. Pain level reassessed. Patient is alert, oriented x 3, equal unlabored respirations, skin warm/dry/pink. 16:14 Reassessment: Patient appears in no apparent distress at this time. Patient and/or db family updated on plan of care and expected duration. Pain level reassessed. Patient is alert, oriented x 3, equal unlabored respirations, skin warm/dry/pink. Patient states feeling better. Vital Signs: 13:25 BP 128 / 67; Pulse 61; Resp 15; Temp 98(O); Pulse Ox 98% on R/A; Weight 56.7 kg; Height cm10 4 ft. 11 in. ; Pain 5/10; 15:30 BP 111 / 59; Pulse 49; Resp 16; Pulse Ox 99% on R/A; db 16:00 BP 125 / 77; Pulse 63; Resp 16; Pulse Ox 99% on R/A; db 13:25 Body Mass Index 25.25 (56.70 kg, 149.86 cm) cm10 13:25 Pain Scale: Adult cm10 ED Course: 13:07 Patient arrived in ED. sj2 13:07 Tashi White FNP-C is PHCP. dr5 13:07 Lorenza Salinas MD is Attending Physician. dr5 13:26 Triage completed. cm10 13:26 Arm band placed on right wrist. Patient placed in an exam room, on a stretcher. cm10 13:43 Dayanna Rodríguez, RN is Primary Nurse. db 13:48 COVID-19 Ag + Flu A+B Ag Sent. db 13:48 Group A Streptococcus Rapid Sent. db 13:49 Patient has correct armband on for positive identification. Bed in low position. Call db light in reach. Side rails up X 1. 14:06 CXR XRAY In Process Unspecified. EDMS 14:16 Tashi White FNP-C is PHCP. dr5 16:15 Provided Education on: DISCHARGE HOME. Pulse ox on. NIBP on. Warm blanket given. Pillow db given. 16:15 No provider procedures requiring assistance completed. Patient did not have IV access db during this emergency room visit. Administered Medications: 15:00 Drug: Dexamethasone IM 10 mg IM once Route: IM; Site: right ventrogluteal; db 16:13 Follow up: Response: No adverse reaction db Medication: 13:49 VIS not applicable for this client. db Outcome: 16:08 Discharge ordered by MD. dr5 16:15 Discharged to home ambulatory, db 16:15 Condition: stable 16:15 Discharge instructions given to patient, family, Instructed on discharge instructions, follow up and referral plans. Prescriptions given X 3, 16:26 Patient left the ED. db Signatures: Dispatcher [employer] EDVT Dayanna Rodríguez RN RN db Marichuy Ibrahim RN RN cm10 Sudarshan Dey sj2 Tashi White FNP-C FNP-Cdr5 Corrections: (The following items were deleted from the chart) 13:27 13:26 Respiratory: No deficits noted. Airway is patent Respiratory effort is even, cm10 unlabored, Respiratory pattern is regular, symmetrical, paradoxical, cm10 13:48 13:48 Pain: db db
--- NOTE | 2025-01-14 16:08 | EDPHYS ---
Physician Documentation [facility] Name: Sarita Tracy Age: 39 yrs Sex: Female : 1985 Arrival Date: 01/14/2025 Time: 13:02 Bed 17 Private MD: ED Physician Lorenza Salinas HPI: 01/14 17:15 This 39 yrs old Female presents to ER via Ambulatory with complaints of Ear dr5 Pain, cough, congestion. 17:15 The patient presents with pain. Patient is a 39-year-old female with history of dr5 anxiety, COPD, depression, hypertension coming in with cough, congestion for the past 10 days with subjective fevers at home and bilateral ear pain. Patient reports that she was seen by her doctor and was given cough medications with no improvement. Patient states that she is coughing up sputum.. Historical: - Allergies: 13:26 Benadryl; cm10 - PMHx: 13:26 Anxiety; Cerebral Palsy; Depression; Hypertension; cm10 - PSHx: 13:26 back sx; bone graft; cm10 - Immunization history:: Adult Immunizations up to date. - Infectious Disease History:: Denies. - Social history:: Smoking status: Patient denies any tobacco usage or history of. ROS: 17:15 Constitutional: as per hpi dr5 Exam: 17:15 Constitutional: This is a well developed, well nourished patient who is awake, alert, dr5 and in no acute distress. Head/Face: Normocephalic, atraumatic. 17:15 Chest/axilla: Normal chest wall appearance and motion. Nontender with no deformity. No lesions are appreciated. Cardiovascular: Regular rate and rhythm with a normal S1 and S2. Normal PMI, no JVD. No pulse deficits. Respiratory: Lungs have equal breath sounds bilaterally, clear to auscultation. No rales, rhonchi or wheezes noted. No increased work of breathing, no retractions or nasal flaring. Back: No spinal tenderness. No costovertebral tenderness. Full range of motion. Skin: Warm, dry with normal turgor. Normal color with no rashes, no lesions, and no evidence of cellulitis. Neuro: Awake and alert, GCS 15, oriented to person, place, time, and situation. Cranial nerves II-XII grossly intact. Motor strength 5/5 in all extremities. Sensory grossly intact. Cerebellar exam normal. Normal gait. 17:15 Head/face: Sinus tenderness, that is mild, is located over the right frontal sinus, left frontal sinus, right maxillary sinus and left maxillary sinus, Vital Signs: 13:25 BP 128 / 67; Pulse 61; Resp 15; Temp 98(O); Pulse Ox 98% on R/A; Weight 56.7 kg; Height cm10 4 ft. 11 in. ; Pain 5/10; 15:30 BP 111 / 59; Pulse 49; Resp 16; Pulse Ox 99% on R/A; db 16:00 BP 125 / 77; Pulse 63; Resp 16; Pulse Ox 99% on R/A; db 13:25 Body Mass Index 25.25 (56.70 kg, 149.86 cm) cm10 13:25 Pain Scale: Adult cm10 MDM: 13:07 Medical Screening Exam initiated dr5 17:15 Differential diagnosis: otitis media, otitis externa, PNA, Sinusitits. Data reviewed: dr5 vital signs, nurses notes, lab test result(s), radiologic studies. I considered the following discharge prescriptions or medication management in the emergency department Medications were administered in the Emergency Department. See MAR. Care significantly affected by the following chronic conditions: Depression, HTN, CP, Anxiety. Care significantly affected by the following Social Determinants of Health: Poor access to healthcare and/or lack of insurance, Poor access to transportation, Problems related to employment. Counseling: I had a detailed discussion with the patient and/or guardian regarding the historical points, exam findings, and any diagnostic results supporting the discharge/admit diagnosis, the presence of at least one elevated blood pressure reading (>120/80) during this emergency department visit, lab results, radiology results, the need for outpatient follow up, for definitive care, a family practitioner, to return to the emergency department if symptoms worsen or persist or if there are any questions or concerns that arise at home. Medication response: Dexamethasone. Response to treatment: the patient's symptoms have markedly improved after treatment. ED course: Lab results and chest x-ray results discussed with patient. Will give patient Augmentin to cover for sinusitis as well as cough medication and Medrol Dosepak. Patient is agreeable to plan and states that she will follow-up with her primary care doctor. Strict ER precautions given. Recommended increased hydration and alternate Tylenol and Motrin as needed for pain or fever.. 01/14 13:30 Order name: Group A Streptococcus Rapid; Complete Time: 15:59 sp3 01/14 13:30 Order name: COVID-19 Ag + Flu A+B Ag; Complete Time: 15:59 sp3 01/14 15:35 Order name: Throat Culture ED[facility] 01/14 13:30 Order name: CXR XRAY; Complete Time: 14:47 sp3 Administered Medications: 15:00 Drug: Dexamethasone IM 10 mg IM once Route: IM; Site: right ventrogluteal; db 16:13 Follow up: Response: No adverse reaction db Disposition Summary: 01/14/25 16:08 Discharge Ordered Notes: Location: Home dr5 Condition: Stable dr5 Diagnosis - Other acute sinusitis dr5 Followup: dr5 - With: Emergency Department - When: As needed - Reason: Worsening of condition Followup: dr5 - With: Private Physician - When: 1 - 2 days - Reason: Recheck today's complaints, Continuance of care, Re-evaluation by your physician Discharge Instructions: - Discharge Summary Sheet dr5 - Sinusitis, Adult dr5 Forms: - Medication Reconciliation Form dr5 - Antibiotic Education dr5 - Patient Portal Instructions dr5 - Leadership Thank You Letter dr5 Prescriptions: - Augmentin 875-125 mg Oral Tablet - take 1 tablet ORAL route every 12 hours for 10 days; 20 tablet; Refills: 0, dr5 Product Selection Permitted - Medrol ([place]) 4 mg Oral Tablets, Dose Pack - take 1 tablet ORAL route as directed - follow package instructions; 1 packet; dr5 Refills: 0, Product Selection Permitted - Guaifenesin AC 10-100 mg/5 mL Oral Liquid - take 10 milliliters ORAL route every 4 hours As needed; 240 milliliter; dr5 Refills: 0, Product Selection Permitted Signatures: Dispatcher [employer] Dayanna Ramirez, RN RN db Marichuy Ibrahim RN RN cm10 Tashi White, PATT-C SAFETY REPRESENTATIVE-Cdr5
[2025-01-14 16:31] VITALS: TEMP 98
[2025-01-14 16:32] VITALS: O2SAT 99
[2025-01-14 16:35] VITALS: BP 125/77
== END 2025-01-14 16:26 | disposition home or self-care (01) ==
LOC: ER 13:02
DX: J01.80 Other acute sinusitis (principal); Z11.52 Encounter for screening for COVID-19; G80.9 Cerebral palsy, unspecified
CPT/HCPCS: 87070; 36415; 71045; 87428; J1100; 96372; 99284

== ENCOUNTER 2025-07-29 14:17 | Emergency (ER) | payer OTHER ==
--- OUTSIDE RECORDS SUMMARY | 2025-07-29 14:22 | XMS REPORT | Continuity of Care Document ---
Author Name Unknown Address [address] [facility] [address] [place] [address] [facility] [place] Address [address] [facility] [address] [place] [address] Care Team Providers Care Drier Feeder Name Role Phone PCP, PATIENT DOES NOT HAVE A Primary Care Physic josé miguel Unavailable DR KATERIN TAYLOR Attending Clinician UnavailDR KATERIN Frances Attending Clinician UnavailDR ALFREDO Salcedo Attending Clinician Bernardino STRONG, DR ALFREDO SHARMA Attending Clinician Bernardino royal RADIOLOGY Attending Clinician Unavailable TE BEST Attending Clinician Unavailable Radiology Attending Clinician Unavailable ENID LEVIN Attending Clinician Unavailable ENID LEVIN Attending Clinician Unavailable Enid Levin DO Attending Clinician [phone] DR CHRISTA RADER Attending Clinic josé miguel Unavailable DR CHRISTA RADER Attending Clinic josé miguel Unavailable YEVGENIY HUANG Attending Clinician Unavail able YEVGENIY HUANG Attending Clinician Unavail able Yevgeniy Huang MD Attending Clinician [phone] Doctor Unassigned, [place] Attending Clinician U MARIA DEL ROSARIO Fernando Attending Clinician Gloria vailable Lab, Ang - Db Attending Clinician Unavailable Maria Del Rosario Foley MD Attending Clinician [facility] Attending Clinician Unavailable Tubbs MANAGER COST, Robertaalejandrina Attending Clinician [phone] Unknown, Attending Attending Clinician Unavailab le UNKNOWN, ATTENDING Attending Clinician Unavailab NGUYEN Gillis Attending Clinician Unavailable Izabela CAR ICER, Nguyen Mcguire Attending Clinician [phone] Sunitha Thomson MD Attending Clinician [phone] Shanon Bella Attending Clinician [phone] SHANON BECK Attending Clinician Unavailabl e Provider, [facility] Attending Clinician Unavailable Taylor Attending Clinician Unavailable DR KATERIN TAYLOR Admitting Clinician Unavaila kandace STRONG, DR ALFREDO SHARMA Admitting Clinician UnaDIDIER James Admitting Clinician Unavailable ENID LEVIN Admitting Clinician Unavailable DR CHRISTA RADER SHAHRAM Admitting Clinic josé miguel Unavailable NGUYEN RICHARDS Admitting Clinician Unavailable Taylor Admitting Clinician Unavailable Payers Payer Name Policy Type Policy Number Effective Date Expirati on Date Source [id number] 2023 00:00:00 0700 [id number] 1959 00:00:00 [facility] D[facility] H[facility]-POS D SNP [id number] 2022 00:00:00 [place] [id number] 2022 00:00:00 [facility] (MEDICARE REPLACEMENT/ADVANTA GE - HMO) [id number] 2020 00:00:00 [facility] - DUAL COMPLETE - DUAL ELIGIBLE - SNP (MEDICARE-MEDICAID REPLACEMENT HMO) [id number] Problems Condition Name Condition Details Condition Category Status Onset Date Resolution Date Last Treatment Date Treating Clinician Comments Source Pyelonephr itis Pyelonephr itis Disease Active 06-25 00:00: 00 [place] [facility] Acute bilateral low back pain without sciatica Acute bilateral low back pain without sciatica Disease Active 9-07 00:00: 00 [facility] 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 4- 00:00: 00 [facility] Anxiety Anxiety Disease Active 4- 00:00: 00 [facility] HTN (hypertens ion) HTN (hypertens ion) Disease Active 4- 00:00: 00 [facility] No known active problems No known active problems Disease [facility] Allergies, Adverse Reactions, Alerts Allergy Name Allergy Type Status Severity Reaction(s) Onset Date Inactive Date Treating Clinician Comments Source BENADRYL ALLERGY DECONGES TANT DRUG Active Unknown-Cmnt 2021-10 0- 00:00: 00 [facility] Benadryl Allergy Deconges tant Propensi ty to adverse reaction s Active Unknown - See comments 2021-10 0 00:00: 00 Restlessn ess [facility] No Known Drug Allergie s DA [facility] NO KNOWN ALLERGIE S Drug Class Active [facility] Social History Social Habit Start Date Stop Date Quantity Comments Source History of tobacco use Cigarette Smoker [facility] Alcohol intake 2023-08-28 00:00:00 2023-08-28 00:00:00 Ex-drinker (finding) [facility] Alcoholic beverage intake 2023-08-28 00:00:00 2023-08-28 00:00:00 Ex-drinker (finding) [facility] Exposure to SARS-CoV-2 (event) 2023-01-17 00:00:00 2023-01-27 13:47:00 Not sure [facility] Cigarettes smoked current (pack per day) - Reported 2023-01-27 00:00:00 2023-01-27 00:00:00 [facility] Cigarette pack-years 2023-01-27 00:00:00 2023-01-27 00:00:00 [facility] Tobacco use and exposure 2023-01-27 00:00:00 2023-01-27 00:00:00 Smokeless tobacco non-user [facility] History of Social function 2023-01-27 00:00:00 2023-01-27 00:00:00 [facility] Sex assigned at 1985 00:00:00 1985 00:00:00 [facility] Smoking Status Start Date Stop Date Source Tobacco smoking consumption unknown [facility] Ex-smoker 2023-01-27 00:00:00 2023-01-27 00:00:00 [facility] Never smoked tobacco [facility] Medications Ordered Medication Name Filled Medication Name Start Date Stop Date Current Medication? Ordering Clinician Indication Dosage Frequency Signature (SIG) Comments Components Source gadoteridol (PROHANCE-1 5 mL) injection 0.2 mL/kg 07-06 19:15: 00 07-06 19:14 :00 No [id number] .2mL/kg 0.2 mL/kg, Intravenou s, ONCE, 1 dose, On Thu07/06/24 at 1415, Routine [facility] morpHINE (4 mg/mL) injection 4 mg 06-26 03:45: 00 06-26 03:42 :00 No 4mg 4 mg, Slow IV Push, ONCE, 1 dose, On 06/25/24 at 2245, STAT [facility] cefTRIAXone (ROCEPHIN) 1,000 mg in NaCl 0.9% (NS) 100 mL MINI-BAG 06-26 03:30: 00 06-26 04:06 :00 No 1000mg 1,000 mg, IV Piggyback, ONCE, 1 dose, On 06/25/24 at 2230, Administer over 30 Minutes, 100 mL, Reason for Anti-Infec tive: Documented Infection, Documented Infection Site: Urine, Duration of Therapy: Once (ED) [facility] iopamidol (ISOVUE 370-500 mL) injection 85 mL 06-26 03:15: 00 06-26 03:15 :00 No [id number] 85mL 85 mL, Intravenou s, ONCE, 1 dose, On 06/25/24 at 2215, Routine [facility] morpHINE (4 mg/mL) injection 4 mg 06-26 01:15: 00 06-26 01:23 :00 No 4mg 4 mg, Slow IV Push, ONCE, 1 dose, On 06/25/24 at 2015, STAT [facility] acetaminoph en-codeine 300-30 mg tablet 06-25 00:00: 00 Yes [id number] 1{tbl} Take 1 tablet by mouth every 8 (eight) hours. Indication s: acute pain [facility] cefpodoxime 200 mg tablet 06-25 00:00: 00 07-06 04:59 :00 No [id number] 200mg Take 1 tablet by mouth in the morning and 1 tablet in the evening. Do all this for 10 days. [facility] buPROPion XL 300 mg 24 hr tablet 2022-10 12:07: 12 Yes 300mg Take 1 tablet by mouth every morning. [facility] butalbital- acetaminoph en-caffeine 50-325-40-3 0 mg per capsule 2022-10 12:05: 36 Yes 1{capsu le} Take 1 capsule by mouth every 6 (six) hours as needed for Headache. [facility] acetaminoph en-codeine 300-30 mg tablet 2022-10 00:00: 00 Yes 1{tbl} Take 1 tablet by mouth every 8 (eight) hours as needed (pain). [facility] busPIRone 5 mg tablet 2022-10 00:00: 00 Yes 5mg Take 1 tablet by mouth 2 (two) times daily as needed. [facility] butalbital- acetaminoph en-caffeine 50-325-40-3 0 mg per capsule 01-27 14:03: 08 Yes 1{capsu le} Take 1 capsule by mouth every 6 (six) hours as needed for Headache. [facility] zolpidem 5 mg tablet 01-27 14:03: 08 Yes 5mg Take 1 tablet by mouth at bedtime as needed for Insomnia. [facility] baclofen 5 mg tablet 01-27 00:00: 00 Yes [id number] 5mg Take 1 tablet by mouth 3 (three) times daily as needed for Other or Pain (scale 7-10) (back back, muscle spasm, or leg pain). [facility] SERTraline 25 mg tablet 01-27 00:00: 00 Yes [id number] 12.5mg Take 0.5 tablets by mouth in the morning. [facility] lisinopriL 10 mg tablet 01-27 00:00: 00 Yes [id number] 10mg Take 1 tablet by mouth in the morning. [facility] acetaminoph en-codeine 300-30 mg tablet 11-28 00:00: 00 01-27 00:00 :00 No TAKE 1 TABLET BY MOUTH TWICE DAILY NEEDED [facility] albuterol 90 mcg/actuati on inhaler 2021-10 00:00: 00 10-24 05:59 :00 No [id number] 2{puff} Inhale 2 Puffs every 6 (six) hours as needed for Wheezing or Shortness of Breath for up to 10 days. [facility] benzonatate 200 mg capsule 2021-10 00:00: 00 10-24 05:59 :00 No [id number] 200mg Take 1 capsule by mouth 3 (three) times daily as needed for Cough for up to 10 days. [facility] iopamidol (ISOVUE 370-500 mL) injection 79 mL 2021-10 21:00: 00 09-26 20:02 :00 No [id number] 79mL 79 mL, Intravenou s, ONCE, 1 dose, On Thu09/26/22 at 1500, Routine [facility] ketorolac (TORADOL) injection 30 mg 2021-10 19:45: 00 09-26 19:20 :00 No 30mg 30 mg, Slow IV Push, ONCE, 1 dose, On Thu09/26/22 at 1345, Routine [facility] ondansetron (ZOFRAN (PF)) injection 4 mg 2021-10 19:00: 00 09-26 19:20 :00 No 4mg 4 mg, Slow IV Push, ONCE, 1 dose, On Thu09/26/22 at 1300, [facility] ondansetron 4 mg disintegrat ing tablet 2021-10 00:00: 00 Yes [id number] 4mg Take 1 tablet by mouth every 8 (eight) hours as needed for Nausea and Vomiting (N/V). [facility] ibuprofen 600 mg tablet 2021-10 00:00: 00 Yes [id number] 600mg Take 1 tablet by mouth every 6 (six) hours as needed for Pain (scale 4-6) or Pain (scale 1-3). [facility] cefdinir 300 mg capsule 2021-10 00:00: 00 10-04 05:59 :00 No [id number] 300mg Take 1 capsule by mouth every 12 (twelve) hours for 7 days. [facility] methylpredn isolone sod succ (SOLU-MEDRO L) injection 125 mg 2021-10 0-05 00:15: 00 07-22 23:19 :16 No [id number] 125mg [facility] methylpredn isolone sod succ (SOLU-MEDRO L) injection 125 mg 2021-10 0-05 00:15: 00 07-22 23:22 :00 No [id number] 125mg [facility] fluticasone propionate 50 mcg/actuati on nasal spray 2021-10 004 00:00: 00 Yes [id number] 1{spray } Use 1 [place] in each nostril in the morning. [facility] azelastine 137 mcg (0.1 %) nasal spray 2021-10 004 00:00: 00 Yes [id number] 1{spray } Use 1 [place] in each nostril in the morning and 1 [place] in the evening. Use in each nostril as directed [facility] cetirizine (ZYRTEC) 10 mg tablet 2021-10 004 00:00: 00 Yes [id number] 10mg Take 1 tablet by mouth in the morning. [facility] meclizine 12.5 mg tablet 9- 00:00: 00 07-22 00:00 :00 No TAKE 1 TO 2 TABLETS BY MOUTH AT NIGHT NEEDED [facility] buPROPion XL 300 mg 24 hr tablet -10 00:00: 00 01-27 00:00 :00 No 300mg Take 1 tablet by mouth every morning. [facility] lisinopriL 10 mg tablet 8-28 00:00: 00 01-27 00:00 :00 No 10mg Take 1 tablet by mouth in the morning. [facility] FLUoxetine 10 mg capsule - 00:00: 00 01-27 00:00 :00 No 10mg Take 1 capsule by mouth in the morning. [facility] drospirenon e-ethinyl estradioL 3-0.03 mg per tablet 7-19 00:00: 00 Yes 1{tbl} Take 1 tablet by mouth in the morning. [facility] triamcinolo ne acetonide 0.1 % cream 7-15 00:00: 00 Yes APPLY THIN LAYER TOPICALLY TO THE AFFECTED AREA EVERY 12 HOURS FOR 14 DAYS [facility] No known medications 4-17 21:06: 20 No No known medication s [facility] butalbital- acetaminoph en-caffeine 50 mg-325 mg-40 mg tablet TAKE 1 TABLET BY MOUTH TWICE DAILY NEEDED FOR HEADACHE butalbital- acetaminoph en-caffeine 50 mg-325 mg-40 mg tablet TAKE 1 TABLET BY MOUTH TWICE DAILY NEEDED FOR HEADACHE No butalbital -acetamino phen-caffe ine 50 mg-325 mg-40 mg tablet TAKE 1 TABLET BY MOUTH TWICE DAILY NEEDED FOR HEADACHE [facility] epinephrine 0.3 mg/0.3 mL injection, auto-inject or ADMINISTER 0.3 ML IN THE MUSCLE 1 TIME NEEDED FOR ANAPHYLAXIS epinephrine 0.3 mg/0.3 mL injection, auto-inject or ADMINISTER 0.3 ML IN THE MUSCLE 1 TIME NEEDED FOR ANAPHYLAXIS No epinephrin e 0.3 mg/0.3 mL injection, auto-injec tor ADMINISTER 0.3 ML IN THE MUSCLE 1 TIME NEEDED FOR ANAPHYLAXI S [facility] Lo Loestrin Fe 1 mg-10 mcg (24)/10 mcg (2) tablet Take 1 tablet every day by oral route. Lo Loestrin Fe 1 mg-10 mcg (24)/10 mcg (2) tablet Take 1 tablet every day by oral route. No 1 Q1D Lo Loestrin Fe 1 mg-10 mcg (24)/10 mcg (2) tablet Take 1 tablet every day by oral route. [facility] Aurovela Fe 1-20 (28) 1 mg-20 mcg (21)/75 mg (7) tablet TAKE 1 TABLET BY MOUTH EVERY DAY Aurovela Fe 1-20 (28) 1 mg-20 mcg (21)/75 mg (7) tablet TAKE 1 TABLET BY MOUTH EVERY DAY No Aurovela Fe 1-20 (28) 1 mg-20 mcg (21)/75 mg (7) tablet TAKE 1 TABLET BY MOUTH EVERY DAY [facility] Vital Signs Vital Name Observation Time Observation Value Comments S ource Height 2023-09-30 07:40:00 149.86 CM Weight 2023-09-30 07:40:00 61 KG Height 2025-05-15 05:12:00 149.86 CM Weight 2025-05-15 05:12:00 58.63 KG Height 2025-05-08 18:06:00 149.86 CM Weight 2025-05-08 18:06:00 59.09 KG Height 2025-05-01 07:15:00 149.86 CM Weight 2025-05-01 07:15:00 60 KG Height 2025-05-01 07:15:00 149.86 CM Weight 2025-05-01 07:15:00 60 KG Systolic blood pressure 2024-06-26 03:00:00 125 mm[Hg] [facility] Diastolic blood pressure 2024-06-26 03:00:00 68 mm[Hg] [facility] Heart rate 2024-06-26 03:00:00 63 /min [facility] Oxygen saturation in Arterial blood by Pulse oximetry 2024-06-26 03:00:00 97 /min [facility] Body temperature 2024-06-26 00:55:00 37 [facility] Respiratory rate 2024-06-26 00:55:00 18 /min [facility] Body height 2024-06-26 00:55:00 149.9 cm [facility] Body weight 2024-06-26 00:55:00 58.514 kg [facility] BMI 2024-06-26 00:55:00 26.05 kg/m2 [facility] Height 2023-10-07 07:11:00 152.4 CM Weight 2023-10-07 07:11:00 62.59 KG Height 2023-10-07 07:11:00 152.4 CM Weight 2023-10-07 07:11:00 62.59 KG Height 2023-09-30 07:40:00 149.86 CM Weight 2023-09-30 07:40:00 61 KG Systolic blood pressure 2023-08-28 18:08:00 111 mm[Hg] [facility] Diastolic blood pressure 2023-08-28 18:08:00 77 mm[Hg] [facility] Heart rate 2023-08-28 18:04:00 87 /min [facility] Respiratory rate 2023-08-28 18:04:00 18 /min [facility] Body height 2023-08-28 18:04:00 149.9 cm [facility] Body weight 2023-08-28 18:04:00 62.687 kg [facility] BMI 2023-08-28 18:04:00 27.91 kg/m2 [facility] Oxygen saturation in Arterial blood by Pulse oximetry 2023-08-28 18:04:00 98 /min [facility] Systolic blood pressure 2023-01-27 18:49:00 124 mm[Hg] [facility] Diastolic blood pressure 2023-01-27 18:49:00 67 mm[Hg] [facility] Heart rate 2023-01-27 18:49:00 63 /min [facility] Body temperature 2023-01-27 18:49:00 36.39 [facility] Respiratory rate 2023-01-27 18:49:00 16 /min [facility] Body height 2023-01-27 18:49:00 152 cm [facility] Body weight 2023-01-27 18:49:00 67.314 kg [facility] BMI 2023-01-27 18:49:00 29.13 kg/m2 [facility] Oxygen saturation in Arterial blood by Pulse oximetry 2023-01-27 18:49:00 100 /min [facility] Systolic blood pressure 2022-10-13 19:03:00 125 mm[Hg] [facility] Diastolic blood pressure 2022-10-13 19:03:00 79 mm[Hg] [facility] Heart rate 2022-10-13 19:03:00 126 /min [facility] Body temperature 2022-10-13 19:03:00 37.94 [facility] Respiratory rate 2022-10-13 19:03:00 18 /min [facility] Oxygen saturation in Arterial blood by Pulse oximetry 2022-10-13 19:03:00 98 /min [facility] Systolic blood pressure 2022-09-26 21:00:00 124 mm[Hg] [facility] Diastolic blood pressure 2022-09-26 21:00:00 79 mm[Hg] [facility] Heart rate 2022-09-26 21:00:00 66 /min [facility] Respiratory rate 2022-09-26 21:00:00 18 /min [facility] Oxygen saturation in Arterial blood by Pulse oximetry 2022-09-26 21:00:00 98 /min [facility] Body temperature 2022-09-26 18:33:00 36.89 [facility] Body height 2022-09-26 18:33:00 152.4 cm [facility] Body weight 2022-09-26 18:33:00 58.968 kg [facility] BMI 2022-09-26 18:33:00 25.39 kg/m2 [facility] Systolic blood pressure 2022-07-22 23:08:00 142 mm[Hg] [facility] Diastolic blood pressure 2022-07-22 23:08:00 81 mm[Hg] [facility] Heart rate 2022-07-22 23:08:00 67 /min [facility] Body temperature 2022-07-22 23:08:00 36.72 [facility] Respiratory rate 2022-07-22 23:08:00 16 /min [facility] Body height 2022-07-22 23:08:00 152.4 cm [facility] Body weight 2022-07-22 23:08:00 58.968 kg [facility] BMI 2022-07-22 23:08:00 25.39 kg/m2 [facility] Oxygen saturation in Arterial blood by Pulse oximetry 2022-07-22 23:08:00 98 /min [facility] Procedures Procedure Date / Time Performed Performing Clinician Source FUS LT SACROILIAC JNT IF DEVC PERQ 2025-05-15 00:00:00 [facility] INTRO AIF JOINTS PERQ APPROACH 2025-05-08 00:00:00 [facility] INTRO ANESTHETIC AGENT JOINTS PERQ 2025-05-08 00:00:00 [facility] INTRO AIF JOINTS PERQ APPROACH 2025-05-01 00:00:00 [facility] INTRO ANESTHETIC AGENT JOINTS PERQ 2025-05-01 00:00:00 [facility] INTRO AIF JOINTS PERQ APPROACH 2025-05-01 00:00:00 [facility] INTRO ANESTHETIC AGENT JOINTS PERQ 2025-05-01 00:00:00 [facility] MR HIP LEFT WO CONTRAST 2025-04-05 14:26:17 Requisitio n, Paper [facility] MR HIP LEFT W WO CONTRAST 2024-07-06 19:11:36 Requisition, Paper [facility] CT ABDOMEN PELVIS W CONTRAST 2024-06-26 02:28:44 [facility]. METABOLIC PANEL ([id number]) 2024-06-26 02:08:00 Enid Levin [facility] LIPASE 2024-06-26 01:22:00 Enid Levin [facility] CBC WITH DIFF 2024-06-26 01:22:00 Sujit Ugalde [facility] URINALYSIS 2024-06-26 01:21:00 Sujit Ugalde [facility] POCT TEST 2024-06-26 01:21:00 Don Ugalde [facility] SORIANO NAUTO RED BLD CLL PERIPH VN PC 2023-10-09 00:00:00 [facility] SORIANO NAUTO RED BLD CLL PERIPH VN PC 2023-10-09 00:00:00 [facility] FUSION LV JOINT AUTO SUB POST PC OP 2023-10-07 00:00:00 [facility] FUSION LS JOINT AUTO SUB POST PC OP 2023-10-07 00:00:00 [facility] EXCISION LEFT PELVIC BONE OPEN APPR 2023-10-07 00:00:00 [facility] RELEASE LUMBAR NERVE OPEN APPROACH 2023-10-07 00:00:00 [facility] MONITOR PERIP NERV ELEC INTRAOP EXT 2023-10-07 00:00:00 [facility] FUSION LV JOINT AUTO SUB POST PC OP 2023-10-07 00:00:00 [facility] FUSION LS JOINT AUTO SUB POST PC OP 2023-10-07 00:00:00 [facility] EXCISION LEFT PELVIC BONE OPEN APPR 2023-10-07 00:00:00 [facility] RELEASE LUMBAR NERVE OPEN APPROACH 2023-10-07 00:00:00 [facility] MONITOR PERIP NERV ELEC INTRAOP EXT 2023-10-07 00:00:00 [facility] FUSION LV JOINT IF ANT APPR AC OPEN 2023-09-30 00:00:00 [facility] FUSION LS JOINT IF ANT APPR AC OPEN 2023-09-30 00:00:00 [facility] RESECT LUMBAR VERTEBRAL DISC OPEN 2023-09-30 00:00:00 [facility] RESECTION LUMBOSACRAL DISC OPEN 2023-09-30 00:00:00 [facility] MONITOR PERIP NERV ELEC INTRAOP EXT 2023-09-30 00:00:00 [facility] REFERRAL- REQUEST/RESPONSE 2023-08-27 06:01:00 Doctor Unassigned, [place] [facility] XR CHEST 2 2022-10-13 19:43:25 Va Tubbs [facility] XR CHEST 1 2022-09-26 20:11:37 Nguyen Richards [facility] CT ABDOMEN PELVIS W CONTRAST 2022-09-26 20:09:59 Nguyen Richards [facility] URINALYSIS 2022-09-26 19:53:00 Nguyen Richards [facility] POCT TEST 2022-09-26 19:51:00 Nguyen Richards [facility] LIPASE 2022-09-26 19:18:00 Nguyen Richards [facility] TROPONIN I 2022-09-26 19:18:00 Nguyen Richards [facility] COMP. METABOLIC PANEL ([id number]) 2022-09-26 19:18:00 Nguyen Richards [facility] CBC WITH DIFF 2022-09-26 19:18:00 Nguyen Richards [facility] CONSENT/REFUSAL FOR DIAGNOSIS AND TREATMENT 2022-09-26 18:26:28 Doctor Unassigned, [place] [facility] ASSIGNMENT OF BENEFITS 2022-07-22 23:01:50 Docto r Unassigned, [place] [facility] Plan of Care Planned Activity Planned Date Details Comments Source Diagnostic Test Pending 2021-09-03 00:00:00 culture, urine [code = culture, urine] [facility] Diagnostic Test Pending 2021-09-03 00:00:00 urinalysis, dipstick [code = urinalysis, dipstick] [facility] Diagnostic Test Pending 2021-09-03 00:00:00 test, urine [code = test, urine] [facility] Encounters Start Date/Time End Date/Time Encounter Type Admission Type Attending [facility] Facility Care Department Encounter ID Source 2025-05-15 00:00:00 Inpatient KATERIN CARRANZA [facility]SU [id number] [facility] 2023-09-30 14:40:00 Inpatient KATERIN CARRANZA [facility] SURG [id number] [facility] 2025-05-15 04:53:00 2025-05-15 08:59:00 Outpatient KATERIN CARRANZA [facility] [id number] [facility] 2025-05-09 10:58:00 2025-05-09 23:59:00 Outpatient KATERIN CARRANZA [facility] RAD [id number] [facility] 2025-05-08 07:07:00 2025-05-08 12:00:00 Outpatient C TAE, ALFREDO TAE, ALFREDO [facility] FANACU [id number] [facility] 2025-05-01 05:35:00 2025-05-01 09:21:00 Outpatient C TAE, ALFREDO TAE, ALFREDO [facility] FANACU [id number] [facility] 2025-05-01 05:35:00 2025-05-01 09:21:00 Outpatient C TAE, ALFREDO TAE, ALFREDO [facility] FA[facility]CU [id number] [facility] 2025-04-05 08:20:53 2025-04-05 23:59:00 Hospital Encounter R RADIOLOGY [facility] [id number] [facility] 2024-12-29 08:00:2024-12-29 08:00:00 Outpatient R [facility] [id number] [facility] 2024-07-07 08:00:00 2024-07-07 08:00:00 Outpatient R RADIOLOGY [facility] [id number] [facility] 2024-07-06 11:50:20 2024-07-06 23:59:00 Outpatient R RADIOLOGY [facility] [id number] [facility] 2024-07-06 11:50:20 2024-07-06 23:59:00 Hospital Encounter Radiology Radiology [facility] [id number] [facility] 2024-06-25 19:57:00 2024-06-25 23:29:00 Emergency X ENID LEVIN MATTHEW [facility] ERT [id number] [facility] 2024-06-25 19:57:00 2024-06-25 23:29:00 Emergency Enid Levin [facility] 1.2.840.114 350.1.13.10 4.2.7.2.686 [id number] [facility] 2023-10-07 14:01:00 2023-10-10 20:30:00 Inpatient C CHRISTA RADER [facility] [id number] [facility] 2023-10-07 14:01:00 2023-10-10 20:30:00 Inpatient C CHRISTA RADER [facility] [id number] [facility] 2023-09-30 14:50:00 2023-10-02 14:30:00 Inpatient C CHRISTA RADER [facility] [id number] [facility] 2023-08-28 12:40:00 2023-08-28 12:50:05 Outpatient R YEVGENIY HUANG HOWARD [facility] [id number] [facility] 2023-08-28 12:40:00 2023-08-28 12:50:05 Office Visit Yevgeniy Huang [facility] JESSICA?[facility] 1.2.840.114 350.1.13.10 4.2.7.2.686 [id number] [facility] 2023-08-28 00:00:00 2023-08-28 00:00:00 Telephone Yevgeniy Huang [facility] JESSICA?[facility] 1.2.840.114 350.1.13.10 4.2.7.2.686 [id number] [facility] 2023-08-27 00:00:00 2023-08-27 00:00:00 Orders Only Doctor Unassigned, [place] [facility] 1.2.840.114 350.1.13.10 4.2.7.2.686 [id number] [facility] 2023-02-10 13:45:00 2023-02-10 13:45:00 Outpatient R MARIA DEL ROSARIO FOLEY [facility] [id number] [facility] 2023-01-27 14:30:00 2023-01-27 14:51:30 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, Maria Del Rosario [facility] 1.2.840.114 350.1.13.10 4.2.7.2.686 [id number] [facility] 2023-01-27 14:00:00 2023-01-27 14:37:11 Outpatient R MARIA DEL ROSARIO FOLEY [facility] [id number] [facility] 2023-01-27 14:00:00 2023-01-27 14:37:11 Office Visit Maria Del Rosario Foley [facility] 1..840.114 350.1.13.10 4.2.7.2.686 [id number] [facility] 2022-10-13 13:12:25 2022-10-13 23:59:00 Outpatient R VA TUBBS [facility] [id number] [facility] 2022-10-13 13:12:25 2022-10-13 23:59:00 Hospital Encounter Va Tubbs [facility] 1..840.114 350.1.13.10 4.2.7.2.686 [id number] [facility] 2022-10-13 13:00:00 2022-10-13 13:20:00 Urgent Care Va Tubbs Unknown, Attending [facility] 1..840.114 350.1.13.10 4.2.7.2.686 [id number] [facility] 2022-10-13 13:00:00 2022-10-13 13:00:00 Outpatient R UNKNOWN, ATTENDING [facility] [id number] [facility] 2022-09-26 12:34:00 2022-09-26 16:05:00 Emergency X NGUYEN RICHARDS [facility] E[facility] [id number] [facility] 2022-09-26 12:34:00 2022-09-26 16:05:00 Emergency Nguyen Richards G [facility] 1..840.114 350.1.13.10 4.2.7.2.686 [id number] [facility] 2022-07-22 18:00:00 2022-07-22 18:20:54 Urgent Care Sunitha Thomson Brittany [facility] 1.2.840.114 350.1.13.10 4.2.7.2.686 [id number] [facility] 2022-07-22 18:00:00 2022-07-22 18:20:54 Outpatient R SHANON BECK [facility] [id number] [facility] 2022-07-22 00:00:00 2022-07-22 00:00:00 Orders Only Doctor Unassigned, [place] [facility] 1.2.840.114 350.1.13.10 4.2.7.2.686 [id number] [facility] 2022-07-22 00:00:00 2022-07-22 00:00:00 Letter (Out) Provider, Parveen [facility] ELISSA LOPEZ?[facility] 1.2.840.114 350.1.13.10 4.2.7.2.686 [id number] [facility] Results Test Description Test Time Test Comments Results Result Comments Source MR Hip left wo contrast 16:46:03 EXAM: MRI LEFT HIP WO CONTRAST HISTORY: Left hip pain s/p spinal fusion. Left iliac crest lytic lesionnoted on prior CT lumbar spine. Patient with history of spinal surgery withleft iliac graft harvest. COMPARISON: MR left hip w/wo contrast 07/06/2024. CT lumbar spine 06/25/2024. TECHNIQUE AND FINDINGS: 1.5T multiplanar multiweighted MR imaging of the left hip was performedwithout intravenous contrast administration. BONE AND JOINT: Left posterior iliac crest graft harvest site is unchanged from prior.Additional postsurgical changes of lower lumbar fusion and bilateralproximal femoral diaphyses plate-screw fixation are noted. No acutefracture or focal osseous lesion is identified. The alignment is anatomic.The joint spaces are maintained. The femoral acetabular chondral surfacesand labrum are within normal limits. No significant joint effusion is seen. LIGAMENTS AND TENDONS: Moderate motion degradation. The piriformis muscle bellies are symmetric. The visualized segments of thefemoral neurovascular bundle and sciatic nerve appear normal to the extentvisualized.Visualize d hip flexors, extensors, external rotators and adductors areunremarkable. SOFT TISSUES: No fluid seen at the iliopsoas, trochanteric or ischial bursa. No muscle edema or atrophy is noted. [facility] MR HIP LEFT W WO CONTRAST 20:27:27 [...] with enhancement is seen along with mild A9qsfgmr increase within the left paraspinal musculature. There is partialvisualization of a medullary based hypointense T1 and intermediate H4dewmbb lesion within the proximal right femur extending [...] rotators and adductors are within normal limits. [facility] CT ABDOMEN PELVIS W CONTRAST 03:24:13 [...] 4, image 60; series 6, image 61). [facility] [id number] 01:21:00* Test Item Value Reference Range Interpretation Comme nts POCT PREG (test code = 1605) Negative On board controls acceptable with C Line (test code = 3574) Yes POCT PREG LOT # (test code = 3575) [id number] POCT PREG TEST DATE ( test code = 3576) 2025-02-25 Lab Interpretation (test cod e = 84253-5) Normal [facility] [id number] 06:44:00* Test Item Value Reference Range Interpretation Comme nts Culture Observations (test code = COB1) NO GROWTH AFTER 5 DAYS COMPREHENSIVE METABOLIC [id number] 09:59:00* Test Item Value Reference Range Interpretation [...] (test code = 31A) 41 IU/L 10-49 [id number] 09:59:00* Test Item Value Reference Range Interpretation [...] (test code = RBCMOR) NORMAL BASIC METABOLIC [id number] 06:57:00* Test Item Value Reference Range Interpretation [...] code = RBCMOR) NORMAL CBC WITH MANUAL [id number] 09:06:00* Test Item Value Reference Range Interpretation [...] PLTMOR) NORMAL (1.5-3 um) NORMAL COMPREHENSIVE METABOLIC [id number] 03:53:00* Test Item Value Reference Range Interpretation [...] 17 IU/L 10-49 HEPATITIS B CORE IgM [id number] 11:20:00* Test Item Value Reference Range Interpretation Comme nts HEPATITIS B CORE ANTIBODY (IGM) (test code = 76782952) NON-REACTIVE NON-REACTIVE For additional information, please refer tohttp://[employer]/fa q/YJO363(This link is being provided for informational/educati onal purposes only.)TEST PERFORMED AT:[employer] [facility] [address] [id number] SHETH MD,PHD. HEPATITIS A IGM [id number] 11:18:00* Test Item Value Reference Range Interpretation Comme nts HEPATITIS A IGM (test code = 74138052) NON-REACTIVE NON-REACTIVE For additional information, please refer tohttp://[employer]/fa q/KQP268(This link is being provided for informational/educati onal purposes only.)TEST PERFORMED AT:[employer] [address] [address]DCZUKFKATHRINE SHETH MD,PHD. CBC WITH MANUAL [id number] 10:42:00* Test Item Value Reference Range Interpretation [...] PLTMOR) NORMAL (1.5-3 um) NORMAL COMPREHENSIVE METABOLIC [id number] 04:28:00* Test Item Value Reference Range Interpretation [...] (test code = 31A) 29 IU/L 10-49 [id number] 12:00:00* Test Item Value Reference Range Interpretation Comme nts HIV-1,2 Ab \\T\\ p24 Ag (test code = CHIV) NON-REACTIVE NON-REACTIVE HEPATITIS C [id number] 11:52:00* Test Item Value Reference Range Interpretation Comme nts HCAB (test code = HCAB) NON-REACTIVE NON-REACTIVE HEPATITIS B SURFACE [id number] 11:29:00* Test Item Value Reference Range Interpretation Comme nts HBSAG (test code = HBSAG) NON-REACTIVE NON-REACTIVE LIPID [id number] 11:08:00* Test Item Value Reference Range Interpretation Comme nts CHOLESTROL (test code = 44A) 206 mg/dL <=199 H TRIGLYCERI (test code = 42B) 138 mg/dL <=149 HDL (test code = 83D) 45.7 mg/dL 40.0-60.0 LDL (test code = 34B) 152 mg/dL <=99 H CHL/HDL (test code = CHR) 4.5 0.0-3.4 H COMPREHENSIVE METABOLIC [id number] 11:08:00* Test Item Value Reference Range Interpretation [...] code = 31A) 31 IU/L 10-49 SERUM [id number] 11:06:00* Test Item Value Reference Range Interpretation Comme nts PREG SRM (test code = PGS) NEGATIVE NEGATIVE PRO TIME AND [id number] 11:06:00* Test Item Value Reference Range Interpretation [...] or LMW Heparin. Order Code is ANTI-XA [id number] 11:03:00* Test Item Value Reference Range Interpretation [...] = RBCMOR) NORMAL XR CHEST 1 VIEW [id number] 10:09:55 [facility] 1985 Sex: FLocation Code: D4 EXAMINATION:XR CHEST 1 VIEWCLINICAL INDICATION:Female, 38 years year old with RADICULOPATHY, LUMBAR REGION;M43.06, M43.06, S32.009S, G80.9, F41.9, G43.909COMPARISON: None.FINDINGS:Single view(s) of the chest submitted.Support Devices: None.Heart: Cardiac silhouette is normal in size.Mediastinum: Mediastinal contours are normal.Lungs: Pulmonary vessels are normal in size. No evidence of focal consolidation. Low lung volumes.Pleura: Minimal blunting of the costophrenic angles may be related to atelectasis given low lung volumes. No evidence of large pleural effusion. No pneumothorax is present.Bones: Visualized skeleton is intact.IMPRESSION:No evidence of focal consolidation.Electronically signed by: Chintan Bernard MD 09/29/2023 10:09 AM [facility] TROPONIN [id number] 19:54:07* Test Item Value Reference Range Interpretation Comments TROPONIN I (test code = 6258157536) 0.002 ng/mL See_Comment [Automated message] The system [...] of biotin. Lab Interpretation (test code = 26559-8) Normal [facility] [id number] 19:51:00* Test Item Value Reference Range Interpretation Comme nts POCT PREG (test code = 1605) negative On board controls acceptable with C Line (test code = 3574) present Lab Interpretation (test cod e = 87447-2) Normal [facility]. METABOLIC PANEL (32663)2022-09-26 19:43:07* Test Item Value Reference Range Interpretation Comme nts NA (test code = 8126983728) 139 mmol/L 135-145 K (test code = 6783457244) 4.5 mmol/L 3.5-5.0 CL (test code = 9273523172) 106 mmol/L 98-108 CO2 TOTAL (test code = 7335987333) 24 mmol/L 23-31 AGAP (test code = 3231775372) 2-16 BUN (test code = 5504876286) 12 mg/dL 7-23 GLUCOSE (test code = 1524405903) 101 mg/dL 70-110 CREATININE (test code = 1432520739) 0.69 mg/dL 0.50-1.04 TOTAL BILI (test code = 6403521878) 0.3 mg/dL 0.1-1.1 CALCIUM (test code = 0063675397) 9.5 mg/dL 8.6-10.6 T PROTEIN (test code = 6289569918) 7.5 g/dL 6.3-8.2 ALBUMIN (test code = 5691324158) 4.6 g/dL 3.5-5.0 ALK PHOS (test code = 6934094688) 82 U/L 34-122 ALTv (test code = 1742-6) 31 U/L 5-35 AST(SGOT) (test code = 4787237828) 26 U/L 13-40 eGFR (test code = 2778995429) mL/min/1.73m2 AVRIL (test code = AVRIL) Association [...] or urine or abnormalities in imaging tests). [facility]IP[facility]2022-[facility] 19:42:47* Test Item Value Reference Range Interpretation Comme nts LIPASE (test code = 5529348323) 45 U/L 0-220 Lab Interpretation (test cod e = 42461-3) Normal [facility] WITH [id number] 19:35:46* Test Item Value Reference Range Interpretation Comme nts WBC (test code = 6690-2) See_Comment [VHSquared] The system which generated this result transmitted reference range: 4.30 - 11.10 10*3/?L. The reference range was not used to interpret this result as normal/abnormal. RBC (test code = 789-8) See_Comment [Automated Quantum] The system which generated this result transmitted [...] 32.1 g/dL 31.6-35.1 RDW-SD (test code = 62120-2) 40.0 fL 39.0-49.9 RDW-CV (test code = 788-0) 13.0 % 12.0-15.5 PLT (test code = 777-3) See_Comment H [Automated messa ge] The system which generated this result transmitted reference range: 166 - 358 10*3/?L. The reference range was not used to interpret this result as normal/abnormal. MPV (test code = 86474-6) 9.9 fL 9.5-12.9 NRBC/100 WBC (test code = 7789307174) See_Comment [Automated [employer] Dem[employer] ssage] The system which generated this result transmitted reference range: 0.0 - 10.0 /100 WBCs. The reference range was not used to interpret this result as normal/abnormal. NRBC x10^3 (test code = 5952829341) See_Comment [Automated messa ge] The system which generated this result transmitted reference range: 10*3/?L. The reference range was not used to interpret this result as normal/abnormal. GRAN MAT (NEUT) % (test code = 770-8) 67.6 % IMM GRAN % (test code = 6843154059) 0.40 % LYMPH % (test code = 736-9) 24.9 % MONO % (test code = 5905-5) 4.7 % EOS % (test code = 713-8) 1.5 % BASO % (test code = 706-2) 0.9 % GRAN MAT x10^3(ANC) (test code = 6561499577) 6.95 10*3/uL 1.88-7.09 IMM GRAN x10^3 (test code = 5089669527) 0.04 10*3/uL 0.00-0.06 LYMPH x10^3 (test code = 731-0) 2.56 10*3/uL 1.32-3.29 MONO x10^3 (test code = 742-7) 0.48 10*3/uL 0.33-0.92 EOS x10^3 (test code = 711-2) 0.15 10*3/uL 0.03-0.39 BASO x10^3 (test code = 704-7) 0.09 10*3/uL 0.01-0.07 H Lab Interpretation (test code = 74719-7) Abnormal [facility] Center[facility]inal[facility] macro (dipstick) panel - Urine 2021-09-03 11:00:00* Test Item Value Reference Range Interpretation Comme nts Leukocytes (test code = Leukocytes) Moderate Nitrite (test code = Nitrite) negative Urobilinogen (test code = Urobilinogen) .2 Protein (test code = Protein) Negative pH (test code = pH) 6.5 Blood (test code = Blood) Negative Specific [place] (test code = Specific [place]) 1.020 Ketone (test code = Ketone) Negative Bilirubin (test code = Bilirubin) Negative Glucose (test code = Glucose) Negative Appearance (test code = Appearance) Clear Color (test code = Color) Yellow [facility] Notes Date/Time Note Provider Source 2024-06-25 23:25:18 [...] in no apparent distress. Alexandra Shen RN [facility] 2024-06-25 19:53:21 Pt arrived ambulatory with use of walker. Pt c/o lower back and left hip pain. Pt had spinal surgery and hip graft in September of 2023. Pt last took Tylenol #3 and Robaxin this AM, those medications did not help with pain. Pt denies any kind of injury to back or hip that would have caused pain Almita Mcmahan RN [facility]"
[2025-07-29] MEDS ORDERED: LORAZEPAM 1 MG TABLET ONE (15:47)
[2025-07-29] MEDS ORDERED: NA CHLORIDE 0.9% 1,000 ML ONE (15:47)
--- NOTE | 2025-07-29 15:49 | RAD REPORT ---
EXAMINATION: ONE VIEW CHEST XR CLINICAL INDICATION: Female, 40 years old.,general weakness TECHNIQUE: Frontal chest projection is submitted. Examination is limited by patient positioning and t echnique. COMPARISON: 01/14/2025. FINDINGS: The lungs are well inflated and clear. No pneumothorax or sizable effusion. The heart is normal in s ize. Mediastinal contours are unremarkable. IMPRESSION: No acute intrathoracic abnormalities.
[2025-07-29 15:50] LABS: Absolute Lymphocytes (CBC) 2.3 K/uL (0.7-4.9); Hematocrit 42.1 % (36.0-45.0); Hemoglobin 13.5 g/dL (12.0-15.0); MCH 25.9 pg (27.0-35.0); MCHC 32.1 g/dL (32.0-36.0); MCV 80.8 fL (80-100); MPV 7.8 fL (7.6-11.3); Nucleated RBC Absolute Count 0.0 (0-0); Nucleated Red Blood Cells % 0.1 % (0-0); RBC Red Blood Cell Count 5.21 M/uL (3.86-4.86); White Blood Count 8.90 thou/uL (4.3-10.9)
[2025-07-29 15:58] LABS: PT Prothrombin Time 12.0 SECONDS (10-13.0); Protime INR 1.06
[2025-07-29 16:02] LABS: Sqamous Epithelial <5 /HPF (None Seen); Urine Culture Reflex Order NOT NEEDED; Urine Microscopic Reflex YN ORDER UMIC
[2025-07-29 16:08] LABS: METHAMPHETAM NEGATIVE (NEGATIVE); THC Cannibis NEGATIVE (NEGATIVE)
[2025-07-29 16:11] LABS: ALT/SGPT 23 U/L (13-56); Albumin 3.8 g/dL (3.4-5.0); Albumin/Globulin Ratio 1.0 (1.1-1.8); Alkaline Phosphatase 96 U/L (45-117); Anion Gap 9.9 mEq/L (5.0-15.0); BUN Blood Urea Nitrogen 9 mg/dL (7-18); Globulin 4.0 g/dL (2.3-3.5); Glucose Level 87 mg/dL (74-106); Magnesium 2.2 mg/dL (1.6-2.4); Potassium 3.9 mEq/L (3.5-5.1); Troponin High Sensitivity 4.2 pg/mL (<58.9)
[2025-07-29 16:13] LABS: AST/SGOT < 10 U/L (15-37); Bilirubin Indirect, Calculated 0.1 mg/dL (0.2-0.8)
--- NOTE | 2025-07-29 16:56 | EDPHYS ---
Physician Documentation [facility] Name: Sarita Tracy Age: 40 yrs Sex: Female : 1985 Arrival Date: 07/29/2025 Time: 14:17 Bed 20 Private MD: ED Physician Ac Gamble HPI: 07/29 14:35 This 40 yrs old Female presents to ER via Ambulatory with complaints of cp Reaction to new medication, Chest Pain. 14:35 weakness, intermittent tingling in hands, restless lower extremities and intermittent cp chest pain. Onset: The symptoms/episode began/occurred since 07/19/2025. Severity of symptoms: in the emergency department the symptoms are unchanged despite home interventions. 14:40 Recently prescribed Tizanidine muscle relaxer for Cerebral Palsy. Patient reports cp symptoms since starting medication. Historical: - Allergies: 14:33 Benadryl; dd2 - PMHx: 14:33 Anxiety; Cerebral Palsy; Depression; Hypertension; dd2 - PSHx: 14:33 back sx; bone graft; dd2 - Social history:: Smoking status: Patient denies any tobacco usage or history of. ROS: 14:40 Constitutional: Negative for fever, cp 14:40 Eyes: Negative for injury, pain, redness, and discharge, cp 14:40 Cardiovascular: Positive for chest pain, Negative for edema, palpitations, 14:40 Respiratory: Negative for cough, shortness of breath, wheezing, 14:40 : Negative for urinary symptoms, 14:40 Skin: Negative for rash, 14:40 Neuro: Positive for general weakness, Negative for altered mental status, numbness, 14:40 All other systems are negative, Exam: 14:45 Constitutional: The patient appears in no acute distress, alert, awake, cp non-diaphoretic, non-toxic, well developed, well nourished, 14:45 Head/Face: Normocephalic, atraumatic. cp 14:45 Eyes: Periorbital structures: appear normal, Pupils: equal, round, and reactive to cp light and accomodation, Extraocular movements: intact throughout, Conjunctiva: normal, no exudate, no injection, Sclera: no appreciated abnormality, Lids and lashes: appear normal, bilaterally, 14:45 ENT: External ear(s): are unremarkable, Nose: is normal, Mouth: Lips: moist, Posterior pharynx: Airway: no evidence of obstruction, patent, swelling, is not appreciated, erythema, is not appreciated, exudate, is not appreciated, 14:45 Neck: ROM/movement: pain, is not appreciated, limited range of motion, is not appreciated, 14:45 Chest/axilla: Inspection: normal, 14:45 Cardiovascular: Rate: normal, Rhythm: regular, Edema: is not appreciated, JVD: is not appreciated, 14:45 Respiratory: the patient does not display signs of respiratory distress, Respirations: cp normal, no use of accessory muscles, no retractions, labored breathing, is not present, Breath sounds: are clear throughout, no decreased breath sounds, no stridor, no wheezing, 14:45 Abdomen/GI: Inspection: abdomen appears normal, Bowel sounds: active, all quadrants, Palpation: abdomen is soft and non-tender, in all quadrants, 14:45 Back: CVA tenderness, is absent, 14:45 Skin: cellulitis, is not appreciated, no rash present. 14:45 Neuro: Orientation: to person, place \T\ time. Mentation: is normal, Motor: no acute changes, Sensation: no acute changes, 14:52 ECG was reviewed by the Attending Physician. Vital Signs: 14:31 BP 119 / 76; Pulse 65; Resp 17; Temp 98.2; Pulse Ox 100% on R/A; Weight 60.33 kg (M); dd2 17:19 BP 126 / 78; Pulse 57; Resp 16; Pulse Ox 100% on R/A; jb4 MDM: 14:22 Medical Screening Exam initiated cp 16:55 Data reviewed: vital signs, nurses notes, lab test result(s), EKG, radiologic studies, cp plain films, and as a result, I will discharge patient. 07/29 14:33 Order name: Basic Metabolic Panel; Complete Time: 16:28 07/29 14:33 Order name: CBC with Diff; Complete Time: 16:28 07/29 16:29 Interpretation: Normal except: RBC 5.21; MCH 25.9. 07/29 14:33 Order name: LFT's; Complete Time: 16:28 07/29 14:33 Order name: Magnesium; Complete Time: 16:28 07/29 14:33 Order name: PT-INR; Complete Time: 16:28 cp 07/29 14:33 Order name: Troponin HS; Complete Time: 16:28 cp 07/29 14:33 Order name: UA Rfx Pierre Cult if indicated; Complete Time: 16:28 cp 07/29 14:33 Order name: UDS; Complete Time: 16:28 cp 07/29 14:33 Order name: Test, Urine; Complete Time: 16:28 cp 07/29 14:33 Order name: XRAY Chest (1 view); Complete Time: 16:28 cp 07/29 14:33 Order name: Cardiac monitoring; Complete Time: 14:52 cp 07/29 14:33 Order name: EKG - Nurse/Tech; Complete Time: 14:52 cp 07/29 14:33 Order name: IV Saline Lock; Complete Time: 15:54 cp 07/29 14:33 Order name: Labs collected and sent; Complete Time: 15:54 cp 07/29 14:33 Order name: O2 Per Protocol; Complete Time: 14:34 cp 07/29 14:33 Order name: O2 Sat Monitoring; Complete Time: 14:34 cp EC:52 Rate is 55 beats/min. Rhythm is regular. VT interval is normal. QRS interval is normal. cp QT interval is normal. T waves are Inverted in lead aVR. Interpreted by me. Reviewed by me. Administered Medications: 15:53 Drug: NS 0.9% IV 1000 ml IV at 1 bolus Per protocol; to be given as a bolus over 90 jb4 minutes Route: IV; Rate: 1 bolus; Site: right forearm; 17:15 Follow up: Response: No adverse reaction; IV Status: Completed infusion; IV Intake: jb4 1000ml 15:54 Drug: LORazepam PO 1 mg PO once Route: PO; jb4 17:14 Follow up: Response: No adverse reaction; Marked relief of symptoms jb4 17:14 Drug: Methocarbamol PO 500 mg PO once Route: PO; jb4 17:17 Follow up: Response: Medication administered at discharge. jb4 Disposition: 17:23 Co-signature as Attending Physician, Ac Gamble MD. rn Disposition Summary: 07/29/25 16:55 Discharge Ordered Notes: Location: Home cp Problem: new cp Symptoms: have improved cp Condition: Stable cp Diagnosis - Adverse effect of other drugs, medicaments and biological substances cp Followup: cp - With: Private Physician - When: 2 - 3 days - Reason: Recheck today's complaints Discharge Instructions: - Discharge Summary Sheet cp - Drug Allergy cp Forms: - Medication Reconciliation Form cp - Antibiotic Education cp - Prescription Opioid Use cp - Patient Portal Instructions cp - Leadership Thank You Letter cp Prescriptions: - methocarbamol 750 mg Oral tablet - take 1 tablet ORAL route 3-4 times daily; 30 tablet; Refills: 0, Product cp Selection Permitted Signatures: Dispatcher [employer] EDMS Ac Gamble MD MD rn Abel Zavala, PA-C PA-C cp Yariel Baez, RN RN jb4 JUVENTINO IBANEZ RN RN dd2 Corrections: (The following items were deleted from the chart) 14:34 14:34 BASIC METABOLIC PANEL+C.LAB.BRZ ordered. EDMS EDMS 14:34 14:34 CBC+H.LAB.BRZ ordered. EDMS EDMS 14:34 14:34 HEPATIC FUNCTION+C.LAB.BRZ ordered. EDMS EDMS 14:34 14:34 MAGNESIUM+C.LAB.BRZ ordered. EDMS EDMS 14:34 14:34 PROTIME (+INR)+COAG.LAB.BRZ ordered. EDMS EDMS 14:34 14:34 Troponin High Sensitivity+C.LAB.BRZ ordered. EDMS EDMS 14:34 14:34 UA Rfx Pierre Cult if indicated+U.LAB.BRZ ordered. EDMS EDMS 14:34 14:34 URINE DRUG SCREEN+UC.LAB.BRZ ordered. EDMS EDMS 14:34 14:34 Test, Urine+UC.LAB.BRZ ordered. EDMS EDMS 14:34 14:34 Chest Single View+RAD.RAD.BRZ ordered. EDMS EDMS 07/30 15:14 10 14:40 Recently prescribed Tizanidine muscle relaxer. cp cp
--- NOTE | 2025-07-29 16:56 | ER ---
Nurse's Notes [facility] Name: Sarita Tracy Age: 40 yrs Sex: Female : 1985 Arrival Date: 07/29/2025 Time: 14:17 Bed 20 Private MD: Diagnosis: Adverse effect of other drugs, medicaments and biological substances Presentation: 07/29 14:31 Chief complaint: Patient states: STARTED A NEW MUSCLE RELAXER ON 07/19/2025 AND SINCE dd2 TAKING HAS BECOME RESTLESS, WEAK ALL OVER, DIARRHEA, DRY MOUTH, BODY TINGLING AND OCCASIONAL CHEST PAIN. REPORTS STILL TAKING THE MEDICTION. Coronavirus screen: At this time, the client does not indicate any symptoms associated with coronavirus-19. Ebola Screen: No symptoms or risks identified at this time. Initial Sepsis Screen: Does the patient meet any 2 criteria? No. Patient's initial sepsis screen is negative. Does the patient have a suspected source of infection? No. Patient's initial sepsis screen is negative. Risk Assessment: Do you want to hurt yourself or someone else? Patient reports no desire to harm self or others. Onset of symptoms was July 19, 2025. 14:31 Method Of Arrival: Ambulatory dd2 14:31 Acuity: ROSA 3 dd2 Triage Assessment: 14:33 General: Appears in no apparent distress. Behavior is calm, cooperative, appropriate dd2 for age. Pain: Complains of pain in chest Pain currently is 0 out of 10 on a pain scale. at worst was 5 out of 10 on a pain scale. Neuro: Reports weakness in GENERALIZED. Cardiovascular: Reports chest pain. GI: Reports diarrhea. Historical: - Allergies: 14:33 Benadryl; dd2 - PMHx: 14:33 Anxiety; Cerebral Palsy; Depression; Hypertension; dd2 - PSHx: 14:33 back sx; bone graft; dd2 - Social history:: Smoking status: Patient denies any tobacco usage or history of. Screenin:[address] [facility] ED Fall Risk Assessment (Adult) History of falling in the last 3 months, jb4 including since admission No falls in past 3 months (0 pts) Confusion or Disorientation No (0 pts) Intoxicated or Sedated No (0 pts) Impaired Gait No (0 pts) Mobility Assist Device Used No (0 pt) Altered Elimination No (0 pt) Score/Fall Risk Level 0 - 2 = Low Risk Oriented to surroundings, Maintained a safe environment. Abuse screen: Denies threats or abuse. Nutritional screening: No deficits noted. Tuberculosis screening: No symptoms or risk factors identified. Assessment: 15:54 Reassessment: Patient appears in no apparent distress at this time. Patient and/or jb4 family updated on plan of care and expected duration. Pain level reassessed. Patient is alert, oriented x 3, equal unlabored respirations, skin warm/dry/pink. 17:19 Reassessment: Patient appears in no apparent distress at this time. Patient and/or jb4 family updated on plan of care and expected duration. Pain level reassessed. Patient is alert, oriented x 3, equal unlabored respirations, skin warm/dry/pink. Vital Signs: 14:31 BP 119 / 76; Pulse 65; Resp 17; Temp 98.2; Pulse Ox 100% on R/A; Weight 60.33 kg (M); dd2 17:19 BP 126 / 78; Pulse 57; Resp 16; Pulse Ox 100% on R/A; jb4 ED Course: 14:21 Patient arrived in ED. ts1 14:21 Abel Zavala PA-C is PHCP. cp 14:22 Ac Gamble MD is Attending Physician. cp 14:33 Triage completed. dd2 14:33 Arm band placed on right wrist. dd2 14:34 Yariel Baez, THOMAS is Primary Nurse. jb4 15:13 XRAY Chest (1 view) In Process Unspecified. EDMS 15:42 Inserted saline lock: 20 gauge in right wrist, using aseptic technique. Flushed with 10 pm7 mL NS Missed attempt(s): 22 gauge forearm. Bleeding controlled, band aid applied, catheter tip intact. 17:19 Patient has correct armband on for positive identification. Bed in low position. Call jb4 light in reach. Side rails up X 1. Provided Education on: discharge instructions.. Client placed on continuous cardiac and pulse oximetry monitoring. NIBP monitoring applied. court monitor on. 17:19 No provider procedures requiring assistance completed. IV discontinued, intact, jb4 bleeding controlled, No redness/swelling at site. Pressure dressing applied. Patient maintains SpO2 saturation greater than 95% on room air. Administered Medications: 15:53 Drug: NS 0.9% IV 1000 ml IV at 1 bolus Per protocol; to be given as a bolus over 90 jb4 minutes Route: IV; Rate: 1 bolus; Site: right forearm; 17:15 Follow up: Response: No adverse reaction; IV Status: Completed infusion; IV Intake: jb4 1000ml 15:54 Drug: LORazepam PO 1 mg PO once Route: PO; jb4 17:14 Follow up: Response: No adverse reaction; Marked relief of symptoms jb4 17:14 Drug: Methocarbamol PO 500 mg PO once Route: PO; jb4 17:17 Follow up: Response: Medication administered at discharge. jb4 Medication: 17:19 VIS not applicable for this client. jb4 Intake: 17:15 IV: 1000ml; Total: 1000ml. jb4 Outcome: 16:55 Discharge ordered by . jerica 17:19 Discharged to home ambulatory, jb4 17:19 Condition: stable 17:19 Discharge instructions given to patient, Instructed on discharge instructions, follow up and referral plans. no drinking with medication, no driving heavy equipment, medication usage, Demonstrated understanding of instructions, follow-up care, medications, Prescriptions given X 1, 17:22 Patient left the ED. jb4 Signatures: Dispatcher [employer] EDMS Abel Zavala PA-C PA-C cp Bryson, James, RN RN jb4 Lorna Lopez PAS PAS ts1 JUVENTINO IBANEZ RN RN dd2 Nano Sood pm7
[2025-07-29 17:32] VITALS: TEMP 98.2; O2SAT 100
[2025-07-29 17:34] VITALS: BP 126/78
== END 2025-07-29 17:22 | disposition home or self-care (01) ==
LOC: ER 14:17
DX: R07.9 Chest pain, unspecified (principal); T42.8X5A Adverse effect of antiparkinsonism drugs and other central muscle-tone depressants, initial encounter; R53.1 Weakness; G80.9 Cerebral palsy, unspecified
CPT/HCPCS: 93005; 85025; 81001; 80048; 36415; 83735; 81025; 85610; 80076; 84484; 80307; 71045; 96360; 99285; J7030

== ENCOUNTER 2025-08-10 14:34 | Emergency (ER) | payer OTHER ==
[2025-08-10] MEDS ORDERED: ONDANSETRON 4 MG/2 ML VIAL ONE (15:17)
[2025-08-10] MEDS ORDERED: FENTANYL CITR 100 MCG/2 ML ONE (15:18)
[2025-08-10] MEDS ORDERED: NA CHLORIDE 0.9% 1,000 ML ONE (15:18)
[2025-08-10 15:23] LABS: Absolute Lymphocytes (CBC) 2.6 K/uL (0.7-4.9); Hematocrit 38.8 % (36.0-45.0); Hemoglobin 12.6 g/dL (12.0-15.0); MCH 25.9 pg (27.0-35.0); MCHC 32.5 g/dL (32.0-36.0); MCV 79.8 fL (80-100); MPV 7.5 fL (7.6-11.3); Nucleated RBC Absolute Count 0.0 (0-0); Nucleated Red Blood Cells % 0.0 % (0-0); RBC Red Blood Cell Count 4.86 M/uL (3.86-4.86); White Blood Count 8.80 thou/uL (4.3-10.9)
[2025-08-10 15:43] LABS: ALT/SGPT 27.0 U/L (13-56); AST/SGOT 12.0 U/L (15-37); Albumin 3.7 g/dL (3.4-5.0); Albumin/Globulin Ratio 0.9 (1.1-1.8); Alkaline Phosphatase 77.0 U/L (45-117); Anion Gap 9.7 mEq/L (5.0-15.0); BUN Blood Urea Nitrogen 10.0 mg/dL (7-18); Globulin 4.0 g/dL (2.3-3.5); Glucose Level 96.0 mg/dL (74-106); Lipase 28.0 U/L (13-75); Potassium 3.7 mEq/L (3.5-5.1)
--- NOTE | 2025-08-10 16:49 | RAD REPORT ---
EXAMINATION: CT ABDOMEN AND PELVIS WITH CONTRAST CLINICAL INDICATION: Abdominal pain TECHNIQUE: CT abdomen and pelvis was performed, after the administration of 100 cc Isovue-300.. Sagit jessica and coronal reconstructions were obtained. One or more of the following dose reduction techniques were used: Automated exposure control, adjustment of the mA and kV according to patient si ze, and iterative reconstruction. Unless otherwise specified, incidental findings do not require dedicated imaging follow-up. [id number]. Oral contrast was not given which limits evaluation of bowel and appendix. COMPARISON: .August 06, 2025 FINDINGS: Liver, spleen, pancreas, adrenals and kidneys appear unremarkable No evidence of diverticulitis. Post surgical changes of an appendectomy without complication Fusion L4-S1 again demonstrated. Anterior protrusion of the L5-S1 interbody spacer unchanged. Mild co mpression L2 vertebral body unchanged. Post surgical changes bilateral femora 2 cm irregularly-shaped left ovarian cyst likely has recently ruptured. No significant free fluid. No follow-up recommended. : IMPRESSION: 2 cm irregularly shaped left ovarian cyst likely has recently ruptured. No significant free fluid. Post surgical changes of an appendectomy without complication
[2025-08-10] MEDS ORDERED: KETOROLAC 30 MG/ML INJ ONE (16:59)
--- NOTE | 2025-08-10 17:09 | ER ---
[facility] Name: Sarita Tracy Age: 40 yrs Sex: Female : 1985 Arrival Date: 08/10/2025 Time: 14:34 Bed 4 Private MD: Diagnosis: Diarrhea, unspecified;Abdominal pain, unspecified Presentation: 08/10 14:50 Chief complaint: Patient states: ABD PAIN AND BLOATING WITH DIARRHEA AND INCISION PAIN. db POST OP APPY ON THURSDAY. Coronavirus screen: Client denies travel out of the [place] in the last 14 days. At this time, the client does not indicate any symptoms associated with coronavirus-19. Ebola Screen: Patient negative for fever greater than or equal to 101.5 degrees Fahrenheit, and additional compatible Ebola Virus Disease symptoms Patient denies exposure to infectious person. Patient denies travel to an Ebola-affected area in the 21 days before illness onset. No symptoms or risks identified at this time. Initial Sepsis Screen: Does the patient meet any 2 criteria? No. Patient's initial sepsis screen is negative. Does the patient have a suspected source of infection? No. Patient's initial sepsis screen is negative. Risk Assessment: Do you want to hurt yourself or someone else? Patient reports no desire to harm self or others. Onset of symptoms was August 10, 2025. 14:50 Method Of Arrival: Ambulatory db 14:50 Acuity: ROSA 3 db Triage Assessment: 14:51 General: Appears in no apparent distress. uncomfortable, Behavior is calm, cooperative. db Pain: Complains of pain in abdomen. Neuro: Level of Consciousness is awake, alert, obeys commands, Oriented to person, place, time, situation. GI: Abdomen is Reports lower abdominal pain, diarrhea. Historical: - Allergies: 14:51 Benadryl; db - PMHx: 14:51 Anxiety; Depression; Hypertension; Cerebral Palsy; db - PSHx: 14:51 back sx; bone graft; Appendectomy; db - Immunization history:: Adult Immunizations unknown. - Infectious Disease History:: Denies. - Social history:: Smoking status: Patient denies any tobacco usage or history of. Screenin:30 [facility] ED Fall Risk Assessment (Adult) History of falling in the last 3 months, jb4 including since admission No falls in past 3 months (0 pts) Confusion or Disorientation No (0 pts) Intoxicated or Sedated No (0 pts) Impaired Gait No (0 pts) Mobility Assist Device Used No (0 pt) Altered Elimination No (0 pt) Score/Fall Risk Level 0 - 2 = Low Risk Oriented to surroundings, Maintained a safe environment. Abuse screen: Denies threats or abuse. Nutritional screening: No deficits noted. Tuberculosis screening: No symptoms or risk factors identified. Assessment: 15:28 General: Appears in no apparent distress. comfortable, Behavior is calm, cooperative, jb4 appropriate for age. Pain: Complains of pain in abdomen Pain does not radiate. Pain currently is 8 out of 10 on a pain scale. Neuro: Level of Consciousness is awake, alert, obeys commands, Oriented to person, place, time, situation. Cardiovascular: Patient's skin is warm and dry. Respiratory: Airway is patent Respiratory effort is even, unlabored, Respiratory pattern is regular, symmetrical. GI: surgical sites noted to the umbilicus, RUQ, mid lower abdomen and LLQ. Umbilical and RUQ sites appear red and have a rash. No discharge noted, sites intact. Derm: Skin is intact, Skin is pink, warm \T\ dry. Musculoskeletal: Circulation, motion, and sensation intact. Range of motion: intact in all extremities. 16:31 Reassessment: Patient appears in no apparent distress at this time. Patient and/or jb4 family updated on plan of care and expected duration. Pain level reassessed. Patient is alert, oriented x 3, equal unlabored respirations, skin warm/dry/pink. 17:01 Reassessment: Patient is alert, oriented x 3, equal unlabored respirations, skin aa5 warm/dry/pink. 17:20 Reassessment: Patient is alert, oriented x 3, equal unlabored respirations, skin aa5 warm/dry/pink. Vital Signs: 14:50 BP 137 / 92; Pulse 65; Resp 16; Temp 98.4(O); Pulse Ox 94% ; Weight 58.97 kg; Height 4 db ft. 11 in. ; 16:31 BP 124 / 72; Pulse 75; Resp 16; Pulse Ox 100% on R/A; jb4 17:15 BP 134 / 82; Pulse 72; Resp 18 S; Temp 98(TE); Pulse Ox 98% on R/A; aa5 14:50 Body Mass Index 26.26 (58.97 kg, 149.86 cm) db ED Course: 14:37 Patient arrived in ED. mr 14:39 [facility] cp 14:39 Abel May MD is Attending Physician. cp 14:51 Triage completed. db 14:51 Arm band placed on Patient placed in an exam room. db 15:01 Kajal Martinez RN is Primary Nurse. kb4 15:05 Radiology exam delayed due to lab results not completed at this time. (BUN/Creatinine) jc4 IV insertion attempt and/or patient not having appropriate IV at this time. 15:30 Patient has correct armband on for positive identification. Bed in low position. Call jb4 light in reach. Side rails up X 1. Provided Education on: plan of care. 15:30 Inserted saline lock: 20 gauge in right forearm, using aseptic technique. Flushed with aa5 10 mL NS. 15:31 Primary Nurse role handed off by Kajal Martinez RN jb4 15:31 Yariel Baez, THOMAS is Primary Nurse. jb4 16:16 CT Abd/Pelvis - IV Contrast Only In Process Unspecified. EDMS 17:08 Jorje Pelletier MD is Referral Physician. cp 17:20 IV discontinued, intact, bleeding controlled, No redness/swelling at site. Pressure aa5 dressing applied. 17:20 No provider procedures requiring assistance completed. aa5 Administered Medications: 15:12 CANCELLED (Physician Discretion): morphineor iv 4 mg IVP once over 4 mins jb4 15:26 Drug: Ondansetron IVP 4 mg IVP once; over 2 minutes Route: IVP; Site: right forearm; jb4 15:30 Follow up: Response: No adverse reaction aa5 15:26 Drug: NS 0.9% IV 1000 ml IV at 1 bolus Per protocol; to be given as a bolus over 60 jb4 minutes Route: IV; Rate: 1 bolus; Site: right forearm; 16:26 Follow up: IV Status: Completed infusion; IV Intake: 1000ml aa5 15:26 Drug: fentaNYL (PF) IVP 50 mcg IVP once Route: IVP; Site: right forearm; jb4 16:00 Follow up: Response: No adverse reaction aa5 17:01 Drug: Ketorolac IVP 15 mg IVP once Route: IVP; Site: right forearm; aa5 17:10 Follow up: Response: No adverse reaction aa5 Medication: 17:20 VIS not applicable for this client. aa5 Intake: 16:26 IV: 1000ml; Total: 1000ml. aa5 Outcome: 17:09 Discharge ordered by . cp 17:20 Discharged to home ambulatory, aa5 17:20 Condition: stable 17:20 Discharge instructions given to patient, Instructed on discharge instructions, follow up and referral plans. medication usage, Demonstrated understanding of instructions, follow-up care, medications, Prescriptions given X 1, 17:25 Patient left the ED. aa5 Signatures: Dispatcher [employer] EDMS OrdazSima ayoub, Reg Reg mr Mila Eason, RN RN aa5 Abel Zavala, PA-C PA-C Yariel Strong, RN RN jb4 Dayanna Rodríguez, RN RN Dionisio Sahu jc4 Kajal Martinez RN RN kb4 Corrections: (The following items were deleted from the chart) 17:37 17:30 Patient left the ED. aa5 aa5
--- NOTE | 2025-08-10 17:09 | EDPHYS ---
Physician Documentation [facility] Name: Sarita Tracy Age: 40 yrs Sex: Female : 1985 Arrival Date: 08/10/2025 Time: 14:34 Bed 4 Private MD: RAFA Physician Abel May HPI: 08/10 15:05 This 40 yrs old Female presents to ER via Ambulatory with complaints of Post cp Surgical Pain, Abdominal Pain. 15:05 The patient presents with abdominal pain in the lower abdomen, abdominal distention cp that is diffuse. 15:05 Onset: The symptoms/episode began/occurred gradually. Associated signs and symptoms: cp Pertinent positives: diarrhea, Pertinent negatives: blood in stools, chest pain, constipation, fever, vomiting. The symptoms are described as constant. Patient reports having appendectomy performed by DR Pelletier on 08/06/2025. Historical: - Allergies: 14:51 Benadryl; db - PMHx: 14:51 Anxiety; Depression; Hypertension; Cerebral Palsy; db - PSHx: 14:51 back sx; bone graft; Appendectomy; db - Immunization history:: Adult Immunizations unknown. - Infectious Disease History:: Denies. - Social history:: Smoking status: Patient denies any tobacco usage or history of. ROS: 15:10 Constitutional: Negative for body aches, chills, fever, poor PO intake, cp 15:10 Eyes: Negative for injury, pain, redness, and discharge, cp 15:10 Cardiovascular: Negative for chest pain, palpitations, 15:10 Respiratory: Negative for cough, shortness of breath, wheezing, 15:10 Abdomen/GI: Positive for abdominal pain, diarrhea, of the lower abdomen, Negative for vomiting, constipation, rectal bleeding, 15:10 Back: Negative for pain at rest, pain with movement, 15:10 Neuro: Negative for altered mental status, dizziness, headache, weakness, cp 15:10 All other systems are negative, Exam: 15:15 Constitutional: The patient appears in no acute distress, alert, awake, cp non-diaphoretic, non-toxic, well developed, well nourished, uncomfortable, 15:15 Head/Face: Normocephalic, atraumatic. cp 15:15 Eyes: Periorbital structures: appear normal, Conjunctiva: normal, no exudate, no injection, Sclera: no appreciated abnormality, Lids and lashes: appear normal, bilaterally, 15:15 ENT: External ear(s): are unremarkable, Nose: is normal, Mouth: Lips: moist, Oral mucosa: moist, Posterior pharynx: Airway: no evidence of obstruction, patent, swelling, is not appreciated, erythema, is not appreciated, 15:15 Neck: ROM/movement: is normal, is supple, without pain, no range of motions limitations, 15:15 Chest/axilla: Inspection: normal, 15:15 Cardiovascular: Rate: normal, Rhythm: regular, Edema: is not appreciated, JVD: is not appreciated, 15:15 Respiratory: the patient does not display signs of respiratory distress, Respirations: normal, no use of accessory muscles, no retractions, labored breathing, is not present, Breath sounds: are clear throughout, no decreased breath sounds, no stridor, no wheezing, 15:15 Abdomen/GI: Inspection: incisional scars appear well healed, mild erythema noted of abdominal wall, Bowel sounds: active, all quadrants, Palpation: soft, in all quadrants, moderate abdominal tenderness, in all quadrants, rebound tenderness, is not appreciated, 15:15 Back: CVA tenderness, is absent, 15:15 Neuro: Orientation: to person, place \T\ time. Mentation: is normal, Vital Signs: 14:50 BP 137 / 92; Pulse 65; Resp 16; Temp 98.4(O); Pulse Ox 94% ; Weight 58.97 kg; Height 4 db ft. 11 in. ; 16:31 BP 124 / 72; Pulse 75; Resp 16; Pulse Ox 100% on R/A; jb4 17:15 BP 134 / 82; Pulse 72; Resp 18 S; Temp 98(TE); Pulse Ox 98% on R/A; aa5 14:50 Body Mass Index 26.26 (58.97 kg, 149.86 cm) db MDM: 14:52 Medical Screening Exam initiated cp 15:30 Differential diagnosis: bowel obstruction, cholecystitis, Cholelithiasis, non-specific cp abd pain, pancreatitis, Pyelonephritis, Ureterolithiasis, urinary tract infection. 17:08 Data reviewed: vital signs, nurses notes, lab test result(s), radiologic studies, CT cp scan, and as a result, I will discharge patient. 17:08 I considered the following discharge prescriptions or medication management in the emergency department Medications were administered in the Emergency Department. See MAR. Care significantly affected by the following chronic conditions: Hypertension, cerebral palsy. Counseling: I had a detailed discussion with the patient and/or guardian regarding the historical points, exam findings, and any diagnostic results supporting the discharge/admit diagnosis, lab results, radiology results, the need for outpatient follow up, a general surgeon, to return to the emergency department if symptoms worsen or persist or if there are any questions or concerns that arise at home. Response to treatment: the patient's symptoms have mildly improved after treatment, and as a result, I will discharge patient. Special discussion: Based on the patient's Hx, exam, and Dx evaluation, there is no indication for emergent surgery or inpatient Tx. It is understood by the patient/guardian that if the Sx's persist or worsen they need to return immediately for re-evaluation. 08/10 15:00 Order name: CBC with Diff; Complete Time: 15:37 08/10 15:40 Interpretation: Normal except: MCV 79.8; MCH 25.9; PLT 468; MPV 7.5; EOSINOPHIL % 4.9. 08/10 15:00 Order name: CMP; Complete Time: 16:36 08/10 16:58 Interpretation: Normal except: CL 108; AST 12; GLOB 4.0; A/G 0.9. 08/10 15:00 Order name: Lipase; Complete Time: 16:36 08/10 15:09 Order name: Test, Serum; Complete Time: 15:39 4 08/10 15:39 Interpretation: Reviewed. 08/10 15:00 Order name: CT Abd/Pelvis - IV Contrast Only; Complete Time: 16:55 08/10 16:56 Interpretation: Report reviewed. 08/10 15:00 Order name: IV Saline Lock; Complete Time: 15:11 08/10 15:00 Order name: Labs collected and sent; Complete Time: 15:11 Administered Medications: 15:12 CANCELLED (Physician Discretion): morphineor iv 4 mg IVP once over 4 mins jb4 15:26 Drug: Ondansetron IVP 4 mg IVP once; over 2 minutes Route: IVP; Site: right forearm; jb4 15:30 Follow up: Response: No adverse reaction aa5 15:26 Drug: NS 0.9% IV 1000 ml IV at 1 bolus Per protocol; to be given as a bolus over 60 jb4 minutes Route: IV; Rate: 1 bolus; Site: right forearm; 16:26 Follow up: IV Status: Completed infusion; IV Intake: 1000ml aa5 15:26 Drug: fentaNYL (PF) IVP 50 mcg IVP once Route: IVP; Site: right forearm; jb4 16:00 Follow up: Response: No adverse reaction aa5 17:01 Drug: Ketorolac IVP 15 mg IVP once Route: IVP; Site: right forearm; aa5 17:10 Follow up: Response: No adverse reaction aa5 Disposition Summary: 08/10/25 17:09 Discharge Ordered Notes: Location: Home cp Problem: new cp Symptoms: have improved cp Condition: Stable cp Diagnosis - Diarrhea, unspecified cp - Abdominal pain, unspecified cp Followup: cp - With: Jorje Pelletier MD - When: Tomorrow - Reason: as scheduled for surgical f/u Discharge Instructions: - Discharge Summary Sheet cp - Abdominal Pain, Adult cp - Food Choices to Help Relieve Diarrhea, Adult cp - Diarrhea, Adult cp Forms: - Medication Reconciliation Form cp - Antibiotic Education cp - Prescription Opioid Use cp - Patient Portal Instructions cp - Leadership Thank You Letter cp Prescriptions: - Zofran 4 mg Oral Tablet - take 1 tablet ORAL route every 12 hours As needed; 20 tablet; Refills: 0, cp Product Selection Permitted Signatures: Dispatcher [employer] Abel Barone MD MD cha Calderon, Audri, RN RN aa5 Abel Zavala, PA-C PA-C cp Yariel Baez, THOMAS RN jb4 Dayanna Rodríguez, THOMAS RN db Corrections: (The following items were deleted from the chart) 15:12 15:00 morphine IVP or IV 4 mg IVP once over 4 mins ordered. cp jb4 17:27 17:07 Dressing - Wound ordered. cp aa5
[2025-08-10 17:37] VITALS: TEMP 98.4
[2025-08-10 17:39] VITALS: BP 124/72; O2SAT 100
== END 2025-08-10 17:30 | disposition home or self-care (01) ==
LOC: ER 14:34
DX: R19.7 Diarrhea, unspecified (principal); R10.30 Lower abdominal pain, unspecified; Z98.890 Other specified postprocedural states
CPT/HCPCS: 96361; 85025; 36415; 84703; 83690; 80053; 74177; 96375; 96374; 99284; Q9967; J1885; J3010; J2405; J7030